=== PATIENT | female | born 1970 | race Caucasian/White ===

== ENCOUNTER 2023-06-19 13:53 | Outpatient (OUT) | payer OTHER, SELFPAY ==
--- NOTE | 2023-06-19 14:41 | P.CN_ITS ---
Consult Note: HPI Data of Consult Patient: known to practice within the last 3 years Consult date: 06/19/23 Requesting Physician: TANI VIEIRA NP Primary Care Provider: Adeel Oakley MD Consult Narrative Narrative: She is here for f/u appointment for chronic pain. She has completed PT since last visit and states it did not help. We started etodolac last visit and she has had good relief with it and would like a refill. She denies medication SE. She would like to try lidoderm patches as well. Her main concern today is left TMJ pain. She has been seeing a dentist who could not give her an injection. We discussed doing TMJ botox and she would like to try this. Pain is worse with chewing and clenching jaw. We also discussed ARNALDO as we did last visit. She wants to focus on the TMJ at this time. cc:: CC: TANI VIEIRA NP Review of Systems ROS Status of ROS 10 or more systems reviewed and unremarkable except as noted in history and below Ears, nose, mouth, and throat Reports: mouth pain Exam Constitutional Documenting provider has reviewed patient's vital signs: yes Common normals: no apparent distress, average body habitus, oriented x3, no limitations, healthy appearing, alert and well nourished General appearance: cooperative, comfortable and well developed Orientation/consciousness: Yes awake, Yes oriented to person, Yes oriented to place and Yes oriented to time HENMT Common normals: normocephalic, external ears normal and moist oral mucous membranes Face and sinus: face symmetric Other: pain and crepitus with chewing motion left TMJ area. No trauma or erythema to area. Good alignment of teeth Respiratory Common normals: normal respiratory effort, no retractions and no use of accessory muscles Effort & inspection: able to speak in complete sentences and symmetric chest mov ement Extremity Common normals: normal to inspection, full ROM and normal capillary refill Assessment and Plan Assessment and Plan (1) TMJ (temporomandibular joint disorder): Plan schedule botox injection to left TMJ refill etodolac Patient requesting ketorolac and aware to take etodolac for pain relief. No narcotics d/t concurrent use of xanax from other prescriber
== END 2023-06-19 13:54 | disposition home or self-care (01) ==
LOC: PM 13:54
PROVIDERS: PCP Family Medicine; Visit Provider Nurse Practitioner
DX: M26.602 Left temporomandibular joint disorder, unspecified (principal)
CPT/HCPCS: G0463

== ENCOUNTER 2023-06-19 15:12 | Emergency (ER) | payer OTHER, SELFPAY ==
[2023-06-19 15:18] VITALS: BP 132/82; PULSE 92; RESP 20; TEMP 36.6; O2SAT 100; BMI 28.5
--- NOTE | 2023-06-19 15:28 | ED.BACK1 ---
HPI - Back Pain/Injury General Chief Complaint: Back Pain/Injury Stated Complaint: BACK PAIN Time Seen by Provider: 06/19/23 15:22 Source: patient Mode of arrival: walk-in History of Present Illness HPI Narrative: patient is a 53-year-old female who presents to the Emergency Room for acute on chronic back pain. Patient states for several months she has been dealing with back pain for several months. She had a CTA of the chest in December of this year that showed two sclerotic lesions of the T8 and T9 vertebrae. Patient states she has had continued pain to this area, she states the pain radiates to her low back. She is currently taking gabapentin and tizanidine for pain and sees pain management. She is scheduled for an outpatient MRI but was told she needed to complete physical therapy before the MRI could be approved. She states since she has been participating in physical therapy, her symptoms have been worse. She has no new peripheral paresthesias or pain radiation to the lower extremities. She states her symptoms have been helped in the past with Toradol. Related Data Previous Rx's Medication Instructions Recorded ketorolac 10 mg tablet 10 mg PO TID PRN pain #10 tabs 06/19/23 Allergies Allergy/AdvReac Type Severity Reaction Status Date / Time morphine Allergy Severe Verified 06/19/23 15:18 spironolactone Allergy Severe Verified 06/19/23 15:21 lasix Allergy Severe Uncoded 06/19/23 15:18 Review of Systems ROS Constitutional Denies: fever or chills Ears, nose, mouth, and throat Denies: throat pain Cardiovascular Denies: chest pain Respiratory Denies: cough Gastrointestinal Denies: nausea or vomiting Genitourinary Denies: painful urination Musculoskeletal Reports: back pain; Denies: neck pain Integumentary/Breast Denies: rash Neurological Denies: headache Allergic/Immunologic Denies: hives Exam Narrative Exam Narrative: Gen.: Awake, alert, in no distress Head: Normocephalic, atraumatic ENT: Moist mucous membranes Respiratory: No respiratory distress Back: tenderness of the inferior thoracic spine and superior lumbar spine. No bony point tenderness or obvious deformity. No step-off. Extremities: Moves extremities equally, no injuries noted Psych: Normal mood and affect Neuro: No focal neuro deficit, normal dorsiflexion and plantarflexion of the lower extremities, normal hip flexion, no decrease in sensation to the medial thighs Skin: Warm, dry, intact Constitutional Vital Signs, click to edit/add: Last Vital Signs Temp 97.8 F 06/19/23 15:18 Pulse 92 H 06/19/23 15:18 Resp 20 06/19/23 15:18 BP 132/82 06/19/23 15:18 Pulse Ox 100 06/19/23 15:18 O2 Del Method Room Air 06/19/23 15:22 Course Vital Signs Vital signs: Vital Signs Temperature 97.8 F 06/19/23 15:18 Pulse Rate 92 H 06/19/23 15:18 Respiratory Rate 20 06/19/23 15:18 Blood Pressure 132/82 06/19/23 15:18 Pulse Oximetry 100 06/19/23 15:18 Oxygen Delivery Method Room Air 06/19/23 15:18 Temperature 97.8 F 06/19/23 15:18 Pulse Rate 92 H 06/19/23 15:18 Respiratory Rate 20 06/19/23 15:18 Blood Pressure 132/82 06/19/23 15:18 Pulse Oximetry 100 06/19/23 15:18 Oxygen Delivery Method Room Air 06/19/23 15:22 MDM - Back Pain/Injury MDM Narrative Medical decision making narrative: patient is currently in pain management for the symptoms, she has a pending MRI. She has no new focal neuro deficits in the emergency department today and symptoms of been ongoing for months. She was given an intramuscular injection of Toradol at her request will be started on oral Toradol for the next several days for pain control. She is otherwise on appropriate medications. Follow up with pain management and return to the Emergency Room if symptoms change or worsen Medical Records Attestation: I reviewed the patient's medical records. Discharge Plan Discharge Chief Complaint: Back Pain/Injury Clinical Impression: Back pain Patient Disposition: Home, Self-Care Time of Disposition Decision: 15:26 Condition: Good Prescriptions / Home Meds: New ketorolac 10 mg tablet 10 mg PO TID PRN (Reason: pain) Qty: 10 0RF Instructions: Back Pain (ED) Stand Alone Forms: Portal Instructions Referrals: Adeel Oakley MD [Primary Care Provider] - 1 week
[2023-06-19] MEDS: KETOROLAC TROMETHAMINE 60 MG/2 ML VIAL IM (15:38)
== END 2023-06-19 15:48 | disposition home or self-care (01) ==
PROVIDERS: Emergency Provider Emergency Medicine; PCP Family Medicine
DX: M54.9 Dorsalgia, unspecified (principal); G89.29 Other chronic pain; M26.602 Left temporomandibular joint disorder, unspecified
CPT/HCPCS: 96372; 99284; G0463

== ENCOUNTER 2023-07-09 12:28 | Outpatient (OUT) | payer OTHER, SELFPAY ==
--- NOTE | 2023-07-09 12:41 | MR_ITS ---
The [place] [id number] Patient Name: ALISTAIR MILLER MRN: [id number] date: 1970 Sex: F Assigned Patient Location: MRI Current Patient Location: MRI Accession/Order Number: [id number] Exam Date: 07/09/2023 12:50 Report Date: 07/09/2023 13:53 At the request of: TANI VIEIRA Procedure: MR thoracic spine wo con EXAMINATION: MR thoracic spine wo con HISTORY: Thoracic Pain COMPARISON: No relevant comparison available. TECHNIQUE: Axial T1 and T2; Sagittal T1, T2, and STIR sequences. Images were performed without and with Dotarem contrast. FINDINGS: CORD: Normal caliber, contour, and signal intensity. BONES: Normal alignment with no acute fracture, bone edema or spondylolisthesis. Areas of signal abnormality T6 and T12, hemangiomas are favored. DISCS: Mild to moderate multilevel disc space narrowing mild posterior disc protrusions T5 [id number] and T8-T9. Posterior left paracentral disc herniation of the protrusion type at T12-L1 best seen on sagittal image #6 extending posteriorly 5 mm deforming the left ventral spinal cord. No foraminal stenosis PARASPINAL AREA: No visible mass. OTHER: Negative. No abnormal contrast enhancement. MR/MR thoracic spine wo con IMPRESSION: Moderate sized left central paracentral disc herniation at T12-L1 extending posteriorly 5 mm deforming the left ventral spinal cord Electronically authenticated by: MACKENZIE CROOKS Date: 07/09/2023 13:53
== END 2023-07-09 12:29 | disposition home or self-care (01) ==
LOC: MRI 12:30
PROVIDERS: PCP Family Medicine; Visit Provider Nurse Practitioner
DX: M54.6 Pain in thoracic spine (principal); M51.25 Other intervertebral disc displacement, thoracolumbar region
CPT/HCPCS: 72146

== ENCOUNTER 2024-01-05 23:34 | Observation (INO) | payer OTHER, SELFPAY ==
[2024-01-05 23:37] VITALS: BP 151/93; PULSE 87; RESP 18; TEMP 36.6; O2SAT 98; BMI 23.1
--- NOTE | 2024-01-06 00:23 | ED_ITS ---
HPI - Back Pain/Injury General Chief Complaint: Back Pain/Injury Stated Complaint: BACK INJURY FALL Time Seen by Provider: 01/06/24 00:13 Source: patient Mode of arrival: walk-in History of Present Illness HPI Narrative: 53-year-old male presents for evaluation of mid to low back pain. She was at home earlier tonight and went outside to check on her son who was working on his truck and had a magnolia stand up. She fell backwards over the magnolia stand and landed flat on her back between her driveway and the road. She talked to her head and did not strike her head when she fell. She has no head injury or neck pain. She has mid to low back pain and states that her lower extremities feel numb and tingly. She was not incontinent of urine at the time of her fall. She took an ibuprofen, a muscle relaxant and a gabapentin at home without significant improvement and asked her son to bring her to the hospital. Related Data Home Medications Medication Instructions Recorded Confirmed alprazolam 1 mg tablet 1 mg PO TID PRN anxiety 01/05/24 01/05/24 amitriptyline 50 mg tablet 50 mg PO QPM 01/05/24 01/05/24 gabapentin 800 mg tablet 800 mg PO TID 01/05/24 01/05/24 ibuprofen 800 mg tablet 800 mg PO TID PRN pain 01/05/24 01/05/24 nifedipine 60 mg tablet,extended 60 mg PO DAILY 01/05/24 01/05/24 release tizanidine 4 mg tablet 4 mg PO TID PRN muscle spasticity 01/05/24 01/05/24 Allergies Allergy/AdvReac Type Severity Reaction Status Date / Time morphine Allergy Severe Verified 06/19/23 15:18 spironolactone Allergy Severe Verified 06/19/23 15:21 lasix Allergy Severe Uncoded 06/19/23 15:18 Review of Systems ROS Status of ROS 10 or more systems reviewed and unremark able except as noted in history and below Exam Narrative Exam Narrative: Nurses note and vital signs reviewed and patient is not hypoxic.Blood pressures elevated at 151/93 General: The patient appears well and in no apparent distress. She is sitting upright on the stretcher, no respiratory distress Skin: Warm, dry, no pallor noted. There is no rash noted. Head: Normocephalic, atraumatic Eye: Normal conjunctiva, no drainage, EOMI. PERRL Ears, Nose, Mouth, and Throat: oral mucosa is moist. Neck: supple, no midline bony vertebral tenderness Cardiovascular: Regular Rate and [id number], pulses are brisk and equal bilaterally Respiratory: Patient is in no distress, no accessory muscle use, lungs are clear to auscultation, no wheezing, rales or rhonchi Back: tenderness to mid thoracic spine area without midline bony vertebral tenderness or step off, no abrasion or ecchymosis noted GI: Normal bowel sounds, no tenderness to palpation, no masses appreciated. No rebound, guarding, or rigidity noted. Musculoskeletal: The patient has no evidence of calf tenderness, no pitting edema, symmetrical pulses noted bilaterally Neurological: A&O x4, normal speech, negative straight leg raising test, no saddle anesthesia, lower extremity strength is intact, subjective decreased sensation to the right mid calf, no calf swelling, negative Homans sign Psychiatric: Cooperative Constitutional Vital Signs, click to edit/add: Last Vital Signs Temp 97.8 F 01/05/24 23:37 Pulse 87 01/05/24 23:37 Resp 18 01/05/24 23:37 BP 151/93 H 01/05/24 23:37 Pulse Ox 98 01/05/24 23:37 O2 Del Method Room Air 01/05/24 23:37 Course Vital Signs Vital signs: Vital Signs Temperature 97.8 F 01/05/24 23:37 Pulse Rate 87 01/05/24 23:37 Respiratory Rate 18 01/05/24 23:37 Blood Pressure 151/93 H 01/05/24 23:37 Pulse Oximetry 98 01/05/24 23:37 Oxygen Delivery Method Room Air 01/05/24 23:37 Temperature 97.8 F 01/05/24 23:37 Pulse Rate 87 01/05/24 23:37 Respiratory Rate 18 01/05/24 23:37 Blood Pressure 151/93 H 01/05/24 23:37 Pulse Oximetry 98 01/05/24 23:37 Oxygen Delivery Method Room Air 01/05/24 23:37 MDM - Back Pain/Injury MDM Narrative Medical decision making narrative: 53-year-old female with a history of chronic back pain who has a herniated disc at T12- L1 presents for evaluation of mid back pain in this region She fell backwards onto her back at home. She took medications that she had at home including gabapentin, muscle relaxant and ibuprofen without improvement and had her son bring her to the emergency department. She denies striking her head when she fell. She has no neck pain. She was tender in the midthoracic region with no step-off or notable deformity. She did complain of numbness in her feet and had decreased sensation in the left medial lower leg and physical exam. Her straight leg raising tests were normal. Is no loss of bladder control or bowel control and she did not have any specific lower back pain. She was medicated emergency department with Percocet, Toradol and Zofran with mild clinical improvement. She has been ambulatory in the emergency department. Due to the history of a herniated disc in her back requiring an MRI last June I ordered a CT scan of the thoracic spine and lumbar spine. He skin of the lumbar spine was unremarkable but the CT scan of the thoracic spine shows a T12-L1 left paracentral disc herniation extending at least 6 mm posteriorly and contacting the left central cord was suspicion for cord compression with moderate spinal canal stenosis at this level with recommendation for emergent MRI of the spine to evaluate for any cord edema or compressive myelopathy. The results of this CAT scan was discussed with the patient and I suggested admission for an emergent MRI tomorrow. Initially the patient requested to be discharged home because she has a puppy and will follow-up as an outpatient for the MRI however after I reviewed the CT scan with her she agreed to admission. She was medicated in emergency department with an additional dose of IV Solu-Medrol. She has not had any worsening of her neurologic symptoms and has been ambulatory to the bathroom and outside. The case was discussed with the hospitalist the patient is accepted for admission, observation status Medical Records Medical records narrative: The [address] [address] [address] Scan Report Signed Patient: ALISTAIR MILLER MR#: [id number] : 1970 Acct:[id number] Age/Sex: 53 / F ADM Date: 01/05/24 Loc: ER Attending Dr: Ordering Physician: Linda Feldman Date of Service: 01/06/24 Procedure(s): CT thoracic spine wo con Accession Number(s): [id number] cc: Adeel Oakley M.D.~ The [address] [address] Patient Name: ALISTAIR MLILER MRN: [facility]:[id number] date: 1970 Sex: F Assigned Patient Location: ER Current Patient Location: ER Accession/Order Number: [id number] Exam Date: 01/06/2024 01:02 Report Date: 01/06/2024 01:58 At the request of: LINDA FELDMAN Procedure: CT thoracic spine wo con EXAM: CT thoracic spine wo con HISTORY: fall, back pain , LE numbness , acute thoracic lumbar back pain after fall injury. COMPARISON: CT chest 12/24/2022 , MRI thoracic spine 07/09/2023 TECHNIQUE: Multiple axial views CT thoracic spine without IV contrast. Coronal sagittal reformats performed. FINDINGS: No vertebral body height loss, acute fracture line, or traumatic subluxation. Multiple sclerotic foci of the thoracic vertebral bodies including the T1, T8, and T9 vertebral bodies are similar to prior exam. No aggressive cortical destruction. At T12-L1, left paracentral disc herniation extends at least 6 mm posteriorly and contacts the left ventral cord with suspicion for cord compression. There is moderate spinal canal stenosis at this level. These findings are probably progressed when compared to MRI 07/09/2023. Multiple smaller disc osteophyte complexes/herniations throughout the mid to lower thoracic levels without severe bony canal narrowing. CT/CT thoracic spine wo con IMPRESSION: At T12-L1, a large left paracentral disc herniation extends at least 6 mm posteriorly and contacts the left ventral cord with suspicion for cord compression. There is moderate spinal canal stenosis at this level. Recommend emergency MRI spine to evaluate for any cord edema/compressive myelopathy. This important critical urgent finding communicated to and acknowledged by Dr. Linda Feldman at 1:54 AM eastern time 01/06/2024 by phone. The verbal phone communication was made by Will Rodriguez. Electronically authenticated by: WILL RODRIGUEZ Date: 01/06/2024 01:58 Discharge Plan Discharge Chief Complaint: Back Pain/Injury Clinical Impression: Fall from standing, Thoracic disc herniation Patient Disposition: Admitted as Observation Time of Disposition Decision: 02:53 Condition: Good Prescriptions / Home Meds: No Action alprazolam 1 mg tablet 1 mg PO TID PRN (Reason: anxiety) amitriptyline 50 mg tablet 50 mg PO QPM gabapentin 800 mg tablet 800 mg PO TID ibuprofen 800 mg tablet 800 mg PO TID PRN (Reason: pain) nifedipine 60 mg tablet extended release 60 mg PO DAILY tizanidine 4 mg tablet 4 mg PO TID PRN (Reason: muscle spasticity) Referrals: Adeel Oakley MD [Primary Care Provider] - 1 week
--- NOTE | 2024-01-06 00:29 | CT_ITS ---
The [address] [address] Patient Name: ALISTAIR MILLER MRN: [id number] date: 1970 Sex: F Assigned Patient Location: ER Current Patient Location: ER Accession/Order Number: [id number] Exam Date: 01/06/2024 01:02 Report Date: 01/06/2024 01:58 At the request of: LINDA FELDMAN Procedure: CT thoracic spine wo con EXAM: CT thoracic spine wo con HISTORY: fall, back pain , LE numbness , acute thoracic lumbar back pain after fall injury. COMPARISON: CT chest 12/24/2022 , MRI thoracic spine 07/09/2023 TECHNIQUE: Multiple axial views CT thoracic spine without IV contrast. Coronal sagittal reformats performed. FINDINGS: No vertebral body height loss, acute fracture line, or traumatic subluxation. Multiple sclerotic foci of the thoracic vertebral bodies including the T1, T8, and T9 vertebral bodies are similar to prior exam. No aggressive cortical destruction. At T12-L1, left paracentral disc herniation extends at least 6 mm posteriorly and contacts the left ventral cord with suspicion for cord compression. There is moderate spinal canal stenosis at this level. These findings are probably progressed when compared to MRI 07/09/2023. Multiple smaller disc osteophyte complexes/herniations throughout the mid to lower thoracic levels without severe bony canal narrowing. CT/CT thoracic spine wo con IMPRESSION: At T12-L1, a large left paracentral disc herniation extends at least 6 mm posteriorly and contacts the left ventral cord with suspicion for cord compression. There is moderate spinal canal stenosis at this level. Recommend emergency MRI spine to evaluate for any cord edema/compressive myelopathy. This important critical urgent finding communicated to and acknowledged by Dr. Linda Feldman at 1:54 AM eastern time 01/06/2024 by phone. The verbal phone communication was made by Will Rodriguez. Electronically authenticated by: WILL RODRIGUEZ Date: 01/06/2024 01:58
--- NOTE | 2024-01-06 00:30 | CT_ITS ---
The [address] [address] Patient Name: ALISTAIR MILLER MRN: [id number] date: 1970 Sex: F Assigned Patient Location: ER Current Patient Location: ER Accession/Order Number: [id number] Exam Date: 01/06/2024 01:02 Report Date: 01/06/2024 01:46 At the request of: SMITH SALDANA Procedure: CT lumbar spine wo con EXAM: CT lumbar spine wo con HISTORY: fall, back pain, LE numbness COMPARISON: None. TECHNIQUE: Unenhanced CT imaging of the lumbar spine. This CT exam was performed using one or more of the following dose reduction techniques: Automated exposure control, adjustment of the mA and/or KV according to patient size, or use of iterative reconstruction technique. Unless otherwise stated, incidental findings do not require dedicated follow-up imaging. FINDINGS: The lumbar vertebrae are normal in height and alignment. There is no evidence of fracture. There is mild degenerative disc disease of the lumbar spine. There is left convex scoliotic curvature centered at L3. There is a punctate nonobstructing left lower pole renal calculus. CT/CT lumbar spine wo con IMPRESSION: 1. No acute fracture or malalignment. 2. Punctate nonobstructive left lower pole nephrolithiasis. Electronically authenticated by: WILL GRIMES Date: 01/06/2024 01:46
[2024-01-06] MEDS: KETOROLAC TROMETHAMINE 30 MG/ML VIAL IM (00:45)
[2024-01-06] MEDS: OXYCODONE HCL/ACETAMINOPHEN 5MG/325MG 1 TAB PO ×3 (00:49→12:55)
[2024-01-06] MEDS: ONDANSETRON 4 MG RAPDIS TABLET SL (00:49)
[2024-01-06 02:44] VITALS: BP 153/98; PULSE 68; RESP 18; TEMP 36.4; O2SAT 98
[2024-01-06] MEDS: METHYLPREDNISOLONE SOD SUCC PF 125 MG/2 ML VIAL IVP (02:59)
[2024-01-06 03:56] VITALS: BMI 24.4
[2024-01-06] MEDS: ALPRAZOLAM 1 MG TABLET PO ×2 (04:30→15:16)
[2024-01-06 05:20] LABS: Basophils Absolute Auto 0.1 10^3/uL (0.0-0.1); Basophils Percent Auto 0.6 % (0.2-2.0); Eosinophils Absolute Auto 0.3 10^3/uL (0.0-0.7); Eosinophils Percent Auto 4.1 % (0.9-7.0); Hematocrit 42.9 % (36.0-48.0); Hemoglobin 13.6 g/dL (12.0-16.0); Immature Granulocytes Abs Auto 0.02 10^3/uL (0.00-0.03); Immature Granulocytes Pct Auto 0.3 % (0.0-0.5); Lymphocytes Absolute Auto 2.2 10^3/uL (1.2-3.8); Lymphocytes Percent Auto 27.8 % (20.5-60.0); Mean Corpuscular HGB Conc 31.7 g/dL (29.9-35.2); Mean Corpuscular Hemoglobin 31.6 pg (26.7-34.0); Mean Corpuscular Volume 99.8 fL (81.0-99.0); Mean Platelet Volume 8.8 fL (9.5-13.5); Monocytes Absolute Auto 0.6 10^3/uL (0.3-0.8); Monocytes Percent Auto 7.2 % (1.7-12.0); Neutrophils Absolute Auto 4.6 10^3/uL (1.4-6.5); Platelet Count 299 10^3/uL (150-450); Red Cell Distribution Width 12.7 % (11.0-15.0); White Blood Count 7.7 10^3/uL (4.0-11.0)
[2024-01-06 05:55] LABS: Alanine Aminotransferase 38 U/L (14-59); Albumin Globulin Ratio 0.9; Albumin Level 3.7 g/dL (3.4-5.0); Alkaline Phosphatase 118 U/L (46-116); Anion Gap 13.2; Aspartate Amino Transferase 32 U/L (15-37); BUN Creatinine Ratio 18.2; Bilirubin Total 0.4 mg/dL (0.2-1.0); Calcium 8.3 mg/dL (8.5-10.1); Chloride 105 mmol/L (98-107); Estimated GFR (African America >60 (>=60); Estimated GFR (Non-African Ame >60 (>=60); Globulin 4.2 g/dL; Glucose 103 mg/dL (74-106); Potassium 3.2 mmol/L (3.5-5.1); Sodium 139 mmol/L (136-145); Total Protein 7.9 g/dL (6.4-8.2)
[2024-01-06] MEDS: GABAPENTIN 400 MG CAPSULE 800 MG PO ×3 (06:05→21:26)
--- NOTE | 2024-01-06 07:49 | MR_ITS ---
[place] [id number] Patient Name: ALISTAIR MILLER MRN: [id number] date: 1970 Sex: F Assigned Patient Location: MS Current Patient Location: MS Accession/Order Number: [id number] Exam Date: 01/06/2024 06:54 Report Date: 01/06/2024 08:18 At the request of: ELIZA ELISE Procedure: MR thoracic spine wo con EXAMINATION: MR thoracic spine wo con HISTORY: fall, T12-L1 paracentral herniation COMPARISON: No relevant comparison available. TECHNIQUE: Axial T1 and T2; Sagittal T1, T2, and STIR sequences. Images were performed without contrast. FINDINGS: CORD: Normal caliber, contour, and signal intensity. BONES: Normal alignment with no spondylolisthesis. No acute fracture. Anterior wedging of the T5-T7 vertebral bodies likely physiologic or remote in nature DISCS: Multilevel disc desiccation and narrowing. Mild posterior central disc bulging T2-T3 and T5-T6 T6-7 T7-T8, T8-T9 T10-T11. Left paracentral and lateral disc herniation of the fusion type at T12-L1 measuring 8 mm at the base extending posteriorly up to 6 mm, deforming the ventral spinal cord PARASPINAL AREA: No visible mass. OTHER: Negative. No abnormal contrast enhancement. MR/MR thoracic spine wo con IMPRESSION: Left paracentral/lateral disc herniation of the protrusion type at T12-L1 deforming the ventral spinal cord Electronically authenticated by: MACKENZIE CROOKS Date: 01/06/2024 08:18
[2024-01-06] MEDS: NIFEdipine 30 MG TAB.ER.24 60 MG PO (08:12)
[2024-01-06] MEDS: POTASSIUM CHLORIDE 10 MEQ ER TABLET 40 MEQ PO (09:04)
[2024-01-06] MEDS: BUSPIRONE HCL 15 MG TABLET PO (09:05)
--- NOTE | 2024-01-06 11:31 | CM.NOTE ---
Rounds made with Thea De TIMBER BUCKER also at bedside to discuss plan of care with pt. Possible transfer to higher level of care.
--- NOTE | 2024-01-06 13:24 | P.HP_ITS ---
<Statement entered by Caridad Jordan, DO - 01/06/24 15:00> This documentation has been reviewed and approved. I have also seen and spoke with patient and reviewed MRI/CT showing T12-L1 left paracentral/lateral disc herniation protrusion deforming the ventral spinal cord. I personally spoke with Neurosurgery cotton opener, Dr. Ann at [facility]. He recommended Transfer so they can properly evaluate patient, review imaging, and deem if the patient is surgical candidate at this time. Transfer to [facility] has been initiated, awaiting bed availability. H&P: HPI History of Present Illness Chief complaint: BACK INJURY FALL Narrative: 01/06/24 0925 This is a 53-year-old female patient with a past medical history as outlined below including chronic degenerative disc disease throughout her entire spine and known disc herniation at T12-L1; who presented to the ED complaining of severe back pain and new paresthesias of the bilateral lower extremities after suffering a mechanical trip and fall at home. She reports tripping over her son's car magnolia and landing flat on her back. She denies striking her head. She took her home gabapentin and Tizanidine without relief and presented to the ED for further evaluation. Workup in the ED was mostly unremarkable except for CT of the thoracic spine norma t revealed a large left paracentral disc herniation that extended at least 6 mm posteriorly and contacts the left ventral cord with suspicion for cord compression. A follow-up MRI was recommended and the patient was admitted in observation to the hospitalist service pending this imaging. At the time of my exam the patient is sitting up on the side of the bed. She continues to note significant pain to the right paraspinal area at T12-L1, and more moderate pain to the mid lumbar area on the left. She also notes persistent paresthesias of the ight low back, buttock, and entire lateral right leg down to her foot. She also notes more mild paresthesias on the left to the mid thigh area. She complains of increased weakness of the lower extremities with ambulation especially on the right, but she is able to ambulate independently. There is no evidence of saddle anesthesia or bowel or bladder dysfunction. The patient reports seeing multiple neurosurgeons in the past and they either felt her impairment was too severe for them to attempt surgery and she was referred elsewhere. The following neurosurgeon did not believe her impairment warranted surgery at that time. My attending physician, Dr. Jordan, will attempt to contact neurosurgery and discussed this patient's condition and whether the new imaging studies and paresthesia changes indicate emergent intervention is warranted. Review of Systems ROS Status of ROS 10 or more systems reviewed and unremark able except as noted in history and below [facility] Medical History (Updated 01/06/24 @ 13:34 by Thea Villar NP) TMJ (temporomandibular joint disorder) ?M26.609 - Unspecified temporomandibular joint disorder, unspecified side (ICD-10) Kidney stones ?N20.0 - Calculus of kidney (ICD-10) Balance disorder ?R26.89 - Other abnormalities of gait and mobility (ICD-10) Neck pain ?M54.2 - Cervicalgia (ICD-10) TMJ arthritis ?M26.649 - Arthritis of unspecified temporomandibular joint (ICD-10) Degenerative disc disease Depression ?F32.A - Depression, unspecified (ICD-10) Anxiety ?F41.9 - Anxiety disorder, unspecified (ICD-10) High blood pressure ?I10 - Essential (primary) hypertension (ICD-10) Spiritual problem ?Z65.8 - Other specified problems related to psychosocial circumstances (ICD- 10) Meniere disease ?H81.09 - Meniere's disease, unspecified ear (ICD-10) Surgical History (Updated 01/06/24 @ 04:32 by Umm Enciso) delivery delivered ?O82 - Encounter for delivery without indication (ICD-10) History of carpal tunnel surgery ?Z98.890 - Other specified postprocedural states (ICD-10) Family History (Updated 01/06/24 @ 03:58 by Umm Enciso) Father Family history of diabetes mellitus Family history of hypertension Family history of myocardial infarction Sister Family history of diabetes mellitus Family history of hypertension Aunt Family history of diabetes mellitus Family history of hypertension Family history of stroke Mother Family history of diabetes mellitus Family history of hypertension Social History (Updated 01/06/24 @ 03:59 by Umm Enciso) Within the past year, how often did you have a drink containing alcohol: never Score interpretation: A score less than 3 is consistent with normal alcohol consumption. 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, disability Highest level of school completed/degree received: some college, no degree Are you now , , , , never or living with a partner: In a typical week, how many times do you talk on the telephone with family, friends, or neighbors: 3 or more times per week How often do you get together with friends or relatives: 3 or more times per week How often do you attend spiritism or holiness services: never Little interest or pleasure in doing things: not at all Feeling down, depressed, or hopeless: not at all Feel stressed/tense/nervous/anxious/difficulty sleeping: not at all Life stressors: divorce/separation Do you think of yourself as: straight/heterosexual Gender Identity: female Meds Home Medications and Allergies Home Medications Medication Instructions Recorded Confirmed Type alprazolam 1 mg tablet 1 mg PO TID PRN anxiety 01/05/24 01/05/24 History amitriptyline 50 mg tablet 50 mg PO QPM 01/05/24 01/05/24 History gabapentin 800 mg tablet 800 mg PO TID 01/05/24 01/05/24 History ibuprofen 800 mg tablet 800 mg PO TID PRN pain 01/05/24 01/05/24 History nifedipine 60 mg tablet,extended 60 mg PO DAILY 01/05/24 01/05/24 History release tizanidine 4 mg tablet 4 mg PO TID PRN muscle spasticity 01/05/24 01/05/24 History buspirone 30 mg tablet 15 mg PO DAILY 01/06/24 01/06/24 History multivitamin (Daily Multi-Vitamin 1 tab PO DAILY 01/06/24 01/06/24 History tablet) Allergies Allergy/AdvReac Type Severity Reaction Status Date / Time morphine Allergy Severe Verified 06/19/23 15:18 spironolactone Allergy Severe Verified 06/19/23 15:21 lasix Allergy Severe Uncoded 06/19/23 15:18 Exam Constitutional Vital Signs, click to edit/add: Last Vital Signs Temp 97.5 F L 01/06/24 02:44 Pulse 68 01/06/24 02:44 Resp 18 01/06/24 02:44 BP 153/98 H 01/06/24 02:44 Pulse Ox 98 01/06/24 02:44 O2 Del Method Room Air 01/06/24 02:44 Common normals: no apparent distress, oriented x3, alert and well nourished General appearance: cooperative Orientation/consciousness: Yes awake HENMT Common normals: normocephalic, head/scalp atraumatic, hearing grossly normal bilaterally, external nose normal and moist oral mucous membranes Eye Common normals: PERRL, EOMs intact bilaterally, conjunctivae normal and no scleral icterus Alignment: alignment normal Eyelid: eyelids normal Neck & C-Spine Common normals: supple and no JVD Chest Common normals: inspection of chest normal Chest: symmetrical chest wall rise Respiratory Common normals: normal respiratory effort, no retractions, no use of accessory muscles and clear to auscultation bilaterally Effort & inspection: able to speak in complete sentences Auscultation: diminished lung sounds (BLL) Cardio Common normals: no JVD, regular rate, regular rhythm, S1 normal heart sound, S2 normal heart sound, no gallops, no clicks, no murmurs, no rub and peripheral pulses 2+ throughout GI Common normals: Normal to inspection, nondistended, normoactive bowel sounds present, soft to palpation, non-tender, no hepatosplenomegaly, no masses and no bruits Bladder/kidney exam: bladder normal to palpation Back & Pelvis Common normals: thoracic and lumbar spine normal to inspection Thoracic spine/upper back: pain with ROM and thoracic spinal tenderness T-spine tenderness location: T12 (Right) Lumbar spine/lower back: normal to inspection and pain with ROM Other: No bruising noted Extremity Common normals: normal capillary refill and no pedal edema General: normal exam except as noted; no clubbing and no cyanosis Neuro [place] Coma Scale: GCS not evaluated Common normals: CN's II-XII intact bilaterally, moves all extremities, no focal motor deficits and no sensory deficits noted Speech: speech normal Sensory exam: extremities right lower entire pin-prick: decreased and light- touch: decreased lateral to top of foot, left lower other pin-prick: decreased and light-touch: decreased to lateral mid thigh and other (Paresthesia R mid- back to buttocks. Radiates to flank, but not past midline) Motor exam: abnormal strength (4-/5 RLE) Psych Common normals: mental status grossly normal, thought process normal, affect normal and activity/motor behavior normal Results Labs Labs: Short CBC 01/06/24 Range/Units 04:36 WBC 7.7 (4.0-11.0) 10^3/uL Hgb 13.6 (12.0-16.0) g/dL Hct 42.9 (36.0-48.0) % Plt Count 299 (150-450) 10^3/uL BMP 01/06/24 04:36 Sodium 139 Potassium 3.2 L Chloride 105 Carbon Dioxide 24.0 BUN 14.0 Creatinine 0.77 Glucose 103 Calcium 8.3 L Liver Function 01/06/24 Range/Units 04:36 Total Bilirubin 0.4 (0.2-1.0) mg/dL AST 32 (15-37) U/L ALT 38 (14-59) U/L Alkaline Phosphatase 118 H (46-116) U/L Albumin 3.7 (3.4-5.0) g/dL Pulse Oximetry Attestation: I have reviewed the pertinent pulse oximetry results. Imaging CT scan Thoracic Spine: Attestation: I have reviewed the pertinent imaging results. Radiologist's impression: IMPRESSION: At T12-L1, a large left paracentral disc herniation extends at least 6 mm posteriorly and contacts the left ventral cord with suspicion for cord compression. There is moderate spinal canal stenosis at this level. Recommend emergency MRI spine to evaluate for any cord edema/compressive myelopathy. CT Scan - Lumbar Spine: Attestation: I have reviewed the pertinent imaging results. Radiologist's impression: IMPRESSION: 1. No acute fracture or malalignment. 2. Punctate nonobstructive left lower pole nephrolithiasis. MRI - Thoracic Spine: Attestation: I have reviewed the pertinent imaging results. Radiologist's impression: FINDINGS: CORD: Normal caliber, contour, and signal intensity. BONES: Normal alignment with no spondylolisthesis. No acute fracture. Anterior wedging of the T5-T7 vertebral bodies likely physiologic or remote in nature DISCS: Multilevel disc desiccation and narrowing. Mild posterior central disc bulging T2-T3 and T5-T6 T6-7 T7-T8, T8-T9 T10-T11. Left paracentral and lateral disc herniation of the fusion type at T12-L1 measuring 8 mm at the base extending posteriorly up to 6 mm, deforming the ventral spinal cord PARASPINAL AREA: No visible mass. OTHER: Negative. No abnormal contrast enhancement. Assessment and Plan Assessment and Plan (1) Thoracic disc herniation: Assessment and Plan: ACUTE ON CHRONIC * Adm observation * Chronic multilevel disc degeneration w/ known disc herniation at T12-L1 for more than 6 months * Previous MRI Thoracic Spine from Jun 2023 noted T12-L1 5mm posterior herniation * Repeat MRI this morning reveals possible extension of the herniation w/ 8mm base and 6mm posterior extension causing spinal cord deformation * New findings since the fall include R side paresthesias from T12 to the foot * Pt reports waxing and waning paresthesias at baseline, but only one other time that reached the level of the foot. * No active paresthesias noted prior to fall * No evidence of saddle anesthesia or bowel/bladder dysfunction * Pt is able to ambulate, but notes that her legs are weak and want to give out (R>L) * See back pain * PT/OT consults for eval and treat * Dr Jordan, attending physician, will contact neurosurgeon to discuss if this is now emergent and requires intervention, or if outpatient follow up is advised considering the chronicity of herniation. (2) Back pain: Assessment and Plan: ACUTE ON CHRONIC * 2/2 acute fall * Percocet and Toradol for pain * Continue home Tizanidine for muscle spasm * Continue home gabapentin (3) Fall from standing: Assessment and Plan: ACUTE * Mechanical trip and fall * Pt reports frequent trips and falls - clinically suspect mild foot drop or inadequate leg raise during ambulation d/t chronic spinal cord compression (4) High blood pressure: Assessment and Plan: CHRONIC * Continue home nifedipine (5) Depression: Assessment and Plan: CHRONIC * Continue home amitriptyline (6) Anxiety: Assessment and Plan: CHRONIC * Continue home buspar and xanax
[2024-01-06] MEDS: KETOROLAC TROMETHAMINE 30 MG/ML VIAL IVP ×2 (14:45→21:26)
[2024-01-06 14:51] VITALS: BP 119/74; PULSE 99; RESP 18; TEMP 36.7; O2SAT 97
[2024-01-06 15:23] VITALS: BMI 24.4
--- NOTE | 2024-01-06 16:24 | DIETREC ---
Recommend 237 mL Ensure Original BID d/t poor food intakes r/t TMJ jaw pain.
[2024-01-06 20:00] VITALS: BP 138/80; PULSE 102; RESP 16; RESP 18; TEMP 36.8; O2SAT 98
[2024-01-06] MEDS: AMITRIPTYLINE HCL 50 MG TABLET PO (21:26)
[2024-01-06] MEDS: TIZANIDINE HCL 4 MG TABLET PO (22:52)
[2024-01-06 23:41] VITALS: BP 114/75; PULSE 76; RESP 16; TEMP 36.6; O2SAT 97
[2024-01-07 08:11] VITALS: BP 120/78
[2024-01-07] MEDS: NIFEdipine 30 MG TAB.ER.24 60 MG PO (08:11)
[2024-01-07] MEDS: BUSPIRONE HCL 15 MG TABLET PO (08:11)
[2024-01-07] MEDS: GABAPENTIN 400 MG CAPSULE 800 MG PO ×2 (08:12→13:55)
[2024-01-07 08:13] VITALS: BP 120/78; PULSE 87; RESP 18; TEMP 36.7; O2SAT 96
[2024-01-07] MEDS: KETOROLAC TROMETHAMINE 30 MG/ML VIAL IVP (09:16)
[2024-01-07] MEDS: TIZANIDINE HCL 4 MG TABLET PO (09:16)
[2024-01-07] MEDS: ALPRAZOLAM 1 MG TABLET PO (10:54)
[2024-01-07 12:00] VITALS: BP 122/78; PULSE 84; RESP 16; TEMP 36.8; O2SAT 98
--- NOTE | 2024-01-07 13:06 | CM.NOTE ---
Rounds made with Dr. Jordan. Ms. Toth explains to Dr. Jordan that she wants to be discharged and has an appointment with her Neurosurgeon @ [facility] tomorrow in the am. Dr. Jordan explains that she does not feel safe with discharge as there are changes in MRI and she will need to speak with the Neurosurgeon to determine if he feels it is safe to be discharged or if Ms. Toth requires transfer as previously planned. Dr. Jordan will attempt to call Ms. Cade's Neurosurgeon and will get back with Ms. Toth regarding their discussion.
--- NOTE | 2024-01-07 15:25 | P.DS_ITS ---
<Statement entered by Caridad Jordan, DO - 01/07/24 15:58> Patient was also seen by me at the time of discharge. I spoke directly with Dr. Tim Muñoz from neurosurgery who has seen and evaluated patient in the past. Since patient was not having bowel or bladder incontinence, and was able to walk, Doctor was comfortable with discharging patient to see her tomorrow in clinic. DS: Providers Provider Date of admission: 01/06/24 17:14 Primary care physician: Adeel Oakley MD Consults: 01/06/24 Consult to Dietitian Routine Reason For Exam: unable able to eat Reason for consultation: unable to eat due to jaw hurting 01/06/24 10:03 Physical Therapy Eval and Treat Routine Reason for consultation: T12 disc herniation Has provider been notified: No 01/06/24 10:04 Occupational Therapy Eval and Treat Routine Reason for consultation: T12 disc herniation Has provider been notified: No Discharging clinician: Thea Villar DS: Diagnosis Discharge Diagnosis (1) Thoracic disc herniation: (2) Back pain: (3) Fall from standing: (4) High blood pressure: (5) Depression: (6) Anxiety: DS: Summary Hospital Course Hospital Course: The patient was admitted with back pain and paresthesias, primarily to the right lower extremity, after suffering a mechanical fall at home. She has a known disc herniation at T12-L1 level and repeat MRI imaging indicated this is slightly worse, with increased ventral spinal cord deformation noted. As the patient's symptoms were worse than baseline, and her disc herniation appeared to have extended since previous imaging in June, neurosurgery at [facility] was contacted for possible emergent transfer. The patient was accepted in transfer, although no bed was immediately available. The patient originally agreed to transfer to [facility] for neurosurgical specialty care, but after waiting overnight for a bed and with overall improvement of paresthesias, she decided that she did not want to transfer as an inpatient to [facility]. We were not comfortable with discharging the patient due to her worsened imaging findings and neurosurgery recommendations, and the patient was considering leaving AMA. She contacted a neurosurgeon that she has seen in the past, Dr. Muñoz from , and he agreed to see the pt emergently as an outpatient tomorrow. Dr Jordan spoke with Dr Muñoz and he confirmed that he was comfortable with us discharging the pt and he will follow up with her tomorrow at 8 AM. She is being discharged in fair condition with her neurologic findings at or near her baseline currently. We have prescribed a prednisone burst x 5 days to help with pain and inflammation. Time Spent with Patient Time attestation: Total time spent providing and/or coordinating discharge services: Time spent: greater than 30 minutes Specific discharge activities: Physical exam, discussion of discharge plan, questions answered. Exam Constitutional Vital Signs, click to edit/add: Last Vital Signs Temp 98.3 F 01/07/24 12:00 Pulse 84 01/07/24 12:00 Resp 16 01/07/24 12:00 BP 122/78 01/07/24 12:00 Pulse Ox 98 01/07/24 12:00 O2 Del Method Room Air 01/07/24 12:00 Common normals: no apparent distress, oriented x3 and alert General appearance: cooperative Orientation/consciousness: Yes awake HENMT Common normals: normocephalic and head/scalp atraumatic Eye Common normals: PERRL, EOMs intact bilaterally, conjunctivae normal and no scleral icterus Respiratory Common normals: normal respiratory effort, no use of accessory muscles and clear to auscultation bilaterally Effort & inspection: able to speak in complete sentences and symmetric chest movement Cardio Common normals: no JVD, regular rate, regular rhythm, S1 normal heart sound, S2 normal heart sound, no murmurs and peripheral pulses 2+ throughout GI Common normals: Normal to inspection, nondistended, normoactive bowel sounds present, soft to palpation and non-tender Bladder/kidney exam: bladder normal to palpation Back & Pelvis Thoracic spine/upper back: thoracic spinal tenderness T-spine tenderness location: T12 (R, mild, improved) Extremity Common normals: normal to inspection, full ROM, normal capillary refill and no pedal edema General: no clubbing and no cyanosis Neuro Common normals: moves all extremities and no focal motor deficits Speech: speech normal Sensory exam: other (Mild paresthesias to R buttock and posterior mid-thigh) Psych Common normals: mental status grossly normal and activity/motor behavior normal Discharge Plan Discharge Disposition: Home, Self-Care Condition: Good Discharge Medications: New prednisone 20 mg tablet 20 mg PO DAILY 5 Days Qty: 5 0RF Continued alprazolam 1 mg tablet 1 mg PO TID PRN (Reason: anxiety) amitriptyline 50 mg tablet 50 mg PO QPM gabapentin 800 mg tablet 800 mg PO TID ibuprofen 800 mg tablet 800 mg PO TID PRN (Reason: pain) nifedipine 60 mg tablet extended release 60 mg PO DAILY tizanidine 4 mg tablet 4 mg PO TID PRN (Reason: muscle spasticity) buspirone 30 mg tablet 15 mg PO DAILY multivitamin [Daily Multi-Vitamin] Tablet 1 tab PO DAILY Activity: resume usual activities as tolerated Patient Instructions: Prednisone (By mouth), Thoracic Disc Herniation (DC) Forms: Portal Instructions Follow Up Appointments: Dr Muñoz, 8AM on 01/08/24
--- OUTSIDE RECORDS SUMMARY | 2024-01-09 09:55 | XMS_ITS | CCD ---
Author Name Unknown Address [address] [place] [address] Organization [facility] Care Team Providers Care Project Systems Engineer Name Role Phone Adeel Cjea Primary Care Provider [phone] Melvin Quiroga Unavailable Amanda Estrella PA-C Unavailable MD Adeel Ceja Primary Care Provider MD Tommy Segundo Attending Provider ADEEL CEJA Primary Care Physician [phone] MD Tommy Segundo. Referring Unavailable Meliton Garcia Attending Unavailable Meliton Garcia Admitting Unavailable Tommy Segundo Unavailable Adeel Ceja Primary Care Provider [phone] Melvin Quiroga Unavailable Amanda Estrella PA-C Unavailable JOANIE ESCOTO Referring Unavailable ADEEL CEJA Primary Care Unavailable COOPER VALLE Attending Unavailable AMANDA ESTRELLA Referring Unavaillexy e ADEEL CEJA Primary Care Unavailable COOPER VALLE Attending Unavailable ADEEL CEJA Primary Care Unavailable UMM MERCEDES Attending Unavailable UMM MERCEDES Referring Unavailable ADEEL CEJA Primary Care Unavailable AMANDA ECHEVERRIA Attending Unavailable COOPER VALLE Referring Unavailable ADEEL CEJA Primary Care Unavailable AMANDA ECHEVERRIA Referring Unavailable ADEEL CEJA Primary Care Unavailable COOPER VALLE Attending Unavailable UMM MERCEDES Referring Unavailable ADEEL CEJA Primary Care Unavailable MATKO, COOPER Suárez Admitting Unavailable MATKO, COOPER Suárez Attending Unavailable MATKO, COOPER Suárez Referring Unavailable NADERER, ADEEL A Primary Care Unavailable MATKO, COOPER J Admitting Unavailable MATKO, COOPER Suárez Attending Unavailable MATKO, COOPER J Referring Unavailable NADERER, ADEEL A Primary Care Unavailable BLAZE, CIARA Attending Unavailable NADERER, ADEEL Sarabia Referring Unavailable NADERER, ADEEL Sarabia Primary Care Unavailable BLAZE, CIARA Referring Unavailable NADERER, ADEEL Sarabia Primary Care Unavailable JOANIE ESCOTO Attending Unavailable AMANDA ESTRELLA Referring Unavailabl e NADERER, ADEEL Sarabia Primary Care Unavailable NADERER, DR ADEEL Sarabia Primary Care Unavailable UDAY, DERRICK Consulting Unavailable UDAY, DERRICK Attending Unavailable UDAY, DERRICK Admitting Unavailable JIM BARON Consulting Unavailable PAY ., DR PARRA Admitting Unavailable NADERER, DR ADEEL Sarabia Primary Care Unavailable PAY ., DR PARRA Attending Unavailable SUSANNAH ., CAITLIN Consulting Unavailable UDAY, DERRICK Consulting Unavailable UDAY, DERRICK Attending Unavailable NADERER, DR ADEEL Sarabia Primary Care Unavailable UDAY, DERRICK Admitting Unavailable NANCYIPPMACKENZIE GONZÁLES Consulting Unavailable SUSANNAH ., CAITLIN Consulting Unavailable UDAY, DERRICK Admitting Unavailable UDAY, DERRICK Attending Unavailable NADERER, DR ADEEL Sarabia Primary Care Unavailable UDAY, DERRICK Consulting Unavailable NADERER, DR ADEEL Sarabia Primary Care Unavailable KILLIAN ., DR JOSE Lanza Attending Unavailable KILLIAN ., DR JOSE Lanza Admitting Unavailable KILLIAN ., DR JOSE Lanza Consulting Unavailable HALKER ., PEARL Attending Unavailable HALKER ., PEARL Admitting Unavailable HALKER ., PEARL Consulting Unavailable NADERESusy, DR ADEEL Sarabia Primary Care Unavailable NADERER, DR ADEEL Sarabia Primary Care Unavailable MACKENZIE RITCHIE V Consulting Unavailable NADERER, DR ADEEL Sarabia Attending Unavailable NADERER, DR ADEEL Sarabia Admitting Unavailable NADERER, DR ADEEL Sarabia Consulting Unavailable NADERER, DR ADEEL Sarabia Primary Care Unavailable MACKENZIE RITCHIE V Consulting Unavailable NADERESusy, DR ADEEL Sarabia Attending Unavailable NADERER, DR ADEEL Sarabia Admitting Unavailable NADERER, DR ADEEL Sarabia Consulting Unavailable NADERER, DR ADEEL Sarabia Primary Care Unavailable BLAZE, CIARA Attending Unavailable BLAZE, CIARA Admitting Unavailable BLAZECIARA Giang Consulting Unavailable NADERER, DR ADEEL Sarabia Primary Care Unavailable MELINDA ., SHIVA Admitting Unavailable MELINDA ., SHIVA Attending Unavailable EMMANUEL DYKES Consulting Unavailable DR ADEEL ECJA Primary Care Unavailable DIAB ., SYLWIA Attending Unavailable DIAB ., SYLWIA Admitting Unavailable DIAB ., SYLWIA Consulting Unavailable MD Adeel Ceja Primary Care Provider MD Ann Valenzuela Attending Provider [phone] NON STAFF Attending Provider Unavailable Unknown, Referring Provider Unavailable Unav ailable UNKNOWN, PCP Primary Care Unavailable Dr. Tim Muñoz Attending Unava ilable Adeel Ceja Primary Care Unavailable Pearl Noyola Admitting Unavailable Pearl Noyola Attending Unavailable Mart Valenzuela Admitting Unavailab Mart Matthew Attending Unavailab Adeel Mendiola Primary Care Unavailable Adeel Ceja MD Primary Care Provider Allergies Allergy Classification Reported Allergen(s) Allergy Type Date of Onset Reaction(s) Facility (17 sources) Acetaminophen / Caffeine / Pyrilamine; Translations: [[id number] RILAMINE] Drug Allergy 014 Hives, Other: See Comments [facility] (17 sources) fentaNYL; Translations: [FENTANYL] Drug Allergy Other: See Comments [facility] (17 sources) hydroCHLOROthiazide; Translations: [HYDROCHLOROTHIAZIDE] Drug All[facility] 022 [facility] (18 sources) Midazolam; Translations: [midazolam] Drug Allergy 017 Other: See Comments, Headache (finding) [facility] (20 sources) Morphine; Translations: [morphine] Drug Allergy 014 Rash, Itching (finding) [facility] (1 source) Diuretics Propensity to adverse reactions Unknown simfy Other (1 source) Diuretic Drug allergy Unknown simfy Other (4 sources) Flbmo-Ilpmavtp-Py Grass-Hydran; Translations: [AHVDD-[id number]-DI GRASS-HYDRAN] Drug Allergy 023 Unknown [facility] (1 source) hydroCHLOROthiazide Drug Allergy [facility] (1 source) Midazolam Drug Allergy [facility] (1 source) Morphine Drug Allergy 014 [facility] (1 source) Midol Max [facility] Menstrual Drug allergy (disorder) 014 [facility] (1 source) Unable to Assess Drug allergy (disorder) 022 [facility] Medications Current Medications Medication Drug Class(es) Dates Sig (Normalized) Sig (Original) ALPRAZolam 1 mg oral tablet (20 sources) Benzodiazepine Start: 10-20-2023 End: 12-17-2023 take 1 tablet by mouth three times daily as needed for anxiety ALPRAZolam (Xanax) 1 MG tablet Indications: Generalized anxiety disorder (CMS/HCC) TAKE 1 TABLET BY MOUTH THREE TIMES DAILY NEEDED FOR ANXIETY 90 tablet 1 12/17/2023 Active Start: 06-13-2022 take 1 tablet by alexia th every eight hours as needed ALPRAZolam (XANAX) 1 mg tablet Take 1 mg by mouth three times daily as needed. 0 06/13/2022 Active Xanax TABS Quant ity: 0 Refills: 0 Ordered: 07-Aug-2023 DO Active take 1 tablet by alexia th three to four times daily as needed Xanax 1 MG 1 tablet Orally 3-4 times a day as needed Active Comment on above: Take 1 mg by mouth t hree times daily as needed. amitriptyline hydrochloride 50 mg oral tablet (6 sources) Tricyclic Antidepressant Start: 12-16-19 24 take 1 tablet by mouth at bedtime amitriptyline (Elavil) 50 MG tablet Indications: Generalized anxiety disorder (CMS/HCC) TAKE 1 TABLET BY MOUTH AT BEDTIME 30 tablet 5 12/16/2023 Active Start: 01-15-2023 take 1 tablet by alexia th once daily at bedtime amitriptyline (ELAVIL) 50 mg tablet Take 50 mg by mouth daily at bedtime. 0 01/15/2023 Active Amitriptyline HC l - 50 MG Oral Tablet Quantity: 0 Refills: 0 Ordered: 07-Aug-2023 DO Active Comment on above: Take 50 mg by mouth daily at bedtime. Ascorbic Acid (1 source) Vitamin C Start: 12-10-2022 Vitamin C Refills(s) 0 Start Date: 12/10/22 Status: Ordered busPIRone hydrochloride 15 mg oral tablet (18 sources) Start: 12-10-2022 busPIRone 15 mg Tab Refills(s) 0 Start Date: 12/10/22 Status: Ordered Start: 06-19-2022 busPIRone HCl 30 mg tablet BuSpar 15 MG TAB S Quantity: 0 Refills: 0 Ordered: 07-Aug-2023 DO Active take 1 tablet by alexia th every twenty-four hours busPIRone HCl 10 MG 1 tablet Orally once daily Active celecoxib 200 mg oral capsule (1 source) Nonsteroidal Anti-inflammatory Drug take 1 capsule by mouth every twenty-four hours CeleBREX 200 MG 1 capsule with food Orally Once a day Active ergocalciferol 1.25 mg oral capsule (1 source) Provitamin D2 Compound take 1 capsule by mouth once Vitamin D (Ergocalciferol) 97603 UNIT 1 capsule Orally for 30 day(s) Active gabapentin 800 mg oral tablet (20 sources) Anti-epileptic Agent Start: 2022 take 1 tablet by mouth three times daily gabapentin (Neurontin) 800 MG tablet Indications: Cervical spondylosis TAKE 1 TABLET BY MOUTH THREE TIMES DAILY 90 tablet 2 10/13/2023 Active Start: 06-19-2022 gabapentin (NE URONTIN) 800 mg tablet Gabapentin 800 M G Oral Tablet Quantity: 0 Refills: 0 Ordered: 07-Aug-2023 DO Active ibuprofen 800 mg oral tablet (3 sources) Nonsteroidal Anti-inflammatory Drug Start: 11-11-2023 take 1 tablet by mouth three times daily as needed ibuprofen 800 MG tablet Indications: Other spondylosis with radiculopathy, cervical region TAKE 1 TABLET BY MOUTH THREE TIMES DAILY NEEDED 90 tablet 4 11/11/2023 Active Start: 12-10-2022 ibuprofen Refi lls(s) 0 Start Date: 12/10/22 Status: Ordered Icy Hot Advanced Pain Relief (1 source) Start: 12-10-2022 Icy Hot Advanced Pain Relief Refill(s) 0 Start Date: 12/10/22 Status: Ordered lidocaine 0.05 mg/mg medicated patch (2 sources) Antiarrhythmic, Amide Local Anesthetic Start: 12-09-2023 apply 1 dose transdermal route once daily lidocaine (Lidoderm) 5 % patch Indications: Cervical spondylosis APPLY ONE PATCH DAILY 30 patch 2 12/09/2023 Active mirtazapine 30 mg oral tablet (9 sources) Start: 12-10-2022 Remeron 30 mg Tab Refills(s) 0 Start Date: 12/10/22 Status: Ordered Start: 11-14-2022 take 1 tablet by alexia th every twenty-four hours Mirtazapine 15 MG 1 tablet at bedtime Orally Once a day for 30 day(s) Nov, Active take 7.5 mg by mouth once daily at bedtime mirtazapine (REMERON) 15 mg tablet Take 7.5 mg by mouth daily at bedtime. 0 Active Comment on above: Take 7.5 mg by mouth daily at bedtime. Multivitamin preparation (1 source) Start: 12-10-2022 multivitamin Refill(s) 0 Start Date: 12/10/22 Status: Ordered NIFEdipine (17 sources) Dihydropyridine Calcium Channel Erik Start: 12-10-2022 NIFEdipine 60 mg ER Tab Refills(s) 0 Start Date: 12/10/22 Status: Ordered Start: 06-19-2022 NIFEdipine XL (ADALAT CC) 60 mg 24 hr tablet take 1 tablet by alexia th every twenty-four hours NIFEdipine ER 60 MG 1 tablet on an empty stomach Orally Once a day for 30 day(s) Active Robaxin-750 (2 sources) Start: 12-10-2022 Robaxin-750 Re fills(s) 0 Start Date: 12/10/22 Status: Ordered Start: 11-14-2022 Robaxin-750 Nov, Active Vitamin D3 (1 source) Start: 12-10-2022 Vitamin D3 Ref ills(s) 0 Start Date: 12/10/22 Status: Ordered Zinc (1 source) Start: 12-10-2022 Zinc Refills(s ) 0 Start Date: 12/10/22 Status: Ordered Completed/Discontinued Medications Medication Drug Class(es) Dates Sig (Normalized) Sig (Original) cholecalciferol 1.25 mg oral capsule (15 sources) Vitamin D Start: 06-17-2019 cholecalciferol, Vitamin D3, (VITAMIN D3) 1,250 mcg (50,000 unit) cap capsule One capsule q.month 0 06/17/2019 Active Comment on above: One capsule q.month cloNIDine hydrochloride 0.1 mg oral tablet (3 sources) Central alpha-2 Adrenergic Agonist Start: 10-17-2022 cloNIDine HCl (CATAPRES) 0.1 mg tablet Take 0.1 mg by mouth. 0 10/17/2022 Active Comment on above: Take 0.1 mg by mouth . cyclobenzaprine hydrochloride 10 mg oral tablet (1 source) Muscle Relaxant Flexeril 10mg 1 Oral 3 times daily for 10 days Not-Taking magnesium oxide 400 mg oral capsule (1 source) Magnesium Oxide 400 MG CAPS Quantity: 0 Refills: 0 Ordered: 07-Aug-2023 DO Active meclizine hydrochloride 25 mg oral tablet (15 sources) Antiemetic take 1 tablet by mouth every eight hours as needed meclizine (ANTIVERT) 25 mg tab Take 25 mg by mouth three times daily as needed. 0 Active Comment on above: Take 25 mg by mouth three times daily as needed. methocarbamol 750 mg oral tablet (11 sources) Muscle Relaxant methocarbamol (ROBAXIN ORAL) Take 750 mg by mouth. 0 Active Comment on above: Take 750 mg by mouth . NIFEdipine 60 MG TBCR (1 source) NIFEdipine 60 MG TBCR Quantity: 0 Refills: 0 Ordered: 07-Aug-2023 DO Active omega-3/dha/epa/dpa/f bipin oil (OMEGA-3 2100 ORAL) (11 sources) omega-3/dha/epa/ dp a/fish oil (OMEGA-3 2100 ORAL) Take by mouth. 0 Active Comment on above: Take by mouth. promethazine hydrochloride 25 mg oral tablet (15 sources) Phenothiazine promethazine (PHENERGAN) 25 mg tablet Take 25 mg by mouth. 0 Active Comment on above: Take 25 mg by mouth. QUEtiapine 100 mg oral tablet (8 sources) Atypical Antipsychotic Start: 06-20-2022 End: 09-16-2022 QUEtiapine (SEROQUEL) 100 mg tablet tiZANidine 4 mg oral tablet (16 sources) Central alpha-2 Adrenergic Agonist Start: 06-19-2022 tiZANidine (ZANAFLEX) 4 mg tablet tiZANidine HCl - 4 MG Oral Capsule Quantity: 0 Refills: 0 Ordered: 07-Aug-2023 DO Active Problems Active Problems Problem Classification Problem Date Documented Date Episodic/Chronic Anxiety disorders (3 sources) Generalized anxiety disorder; Translations: [Generalized anxiety disorder] Onset: 03-25-2023 12-17-2023 Chronic Conditions associated with dizziness or vertigo (16 sources) Meniere's disease; Translations: [Meniere's disease, unspecified ear] Onset: 01-06-2019 06-21-2022 Chronic Essential hypertension (17 sources) Essential hypertension; Translations: [Essential (primary) hypertension] Onset: 11-23-2021 06-21-2022 Chronic Immunizations and screening for infectious disease (1 source) Encounter for screening for respiratory tuberculosis; Translations: [Screening-pulmonary TB] Onset: 01-30-2023 Episodic Nutritional deficiencies (4 sources) Vitamin D deficiency; Translations: [Vitamin D deficiency, unspecified] Onset: 01-30-2023 01-30-2023 Chronic Nutritional deficiencies (1 source) Deficiency of other specified B group vitamins; Translations: [Vitamin B12 deficiency] Onset: 01-30-2023 Episodic Osteoarthritis (6 sources) Disorder of joint of shoulder region; Translations: [Primary osteoarthritis, unspecified shoulder] Onset: 09-16-2022 Chronic Other aftercare (1 source) Other roasterman (current) drug therapy; Translations: [OTH HALF-WAY CURRENT DRUG THERAPY] Onset: 03-25-2023 Episodic Other bone disease and musculoskeletal deformities (3 sources) Lesion of thoracic spine; Translations: [Disorder of bone, unspecified] Onset: 01-30-2023 01-30-2023 Episodic Other circulatory disease (3 sources) Raynaud's phenomenon; Translations: [Raynaud's syndrome without gangrene] Onset: 01-30-2023 01-30-2023 Chronic Other circulatory disease (1 source) H/O: hypertension; Translations: [Personal history of other diseases of circulatory system] Episodic Other connective tissue disease (1 source) Impingement syndrome of left shoulder region; Translations: [Impingement syndrome of left shoulder] Episodic Other connective tissue disease (3 sources) Bilateral medial epicondylitis of elbows; Translations: [Medial epicondylitis, right elbow] Onset: 01-30-2023 01-30-2023 Episodic Other connective tissue disease (1 source) H/O: back problem; Translations: [Personal history of other musculoskeletal disorders] Episodic Other connective tissue disease (1 source) H/O: osteoarthritis; Translations: [Personal history of other musculoskeletal disorders] Episodic Other ear and sense organ disorders (16 sources) Hearing loss; Translations: [Unspecified hearing loss, unspecified ear] Onset: 01-06-2019 06-21-2022 Chronic Other hematologic conditions (5 sources) Elevated erythrocyte sedimentation rate; Translations: [Elevated sed rate] Onset: 01-30-2023 Episodic Other nervous system disorders (13 sources) Carpal tunnel syndrome of right wrist; Translations: [Carpal tunnel syndrome, right upper limb] Onset: 07-22-2022 Chronic Other nervous system disorders (11 sources) Carpal tunnel syndrome of left wrist; Translations: [Carpal tunnel syndrome, left upper limb] Onset: 09-06-2022 Chronic Other nervous system disorders (2 sources) Chronic pain; Translations: [Other chronic pain] Chronic Other nervous system disorders (2 sources) Carpal tunnel syndrome; Translations: [Carpal tunnel syndrome, unspecified upper limb] Chronic Other nervous system disorders (2 sources) Other chronic pain; Translations: [OTHER CHRONIC PAIN] Onset: 12-26-2022 Chronic Other nervous system disorders (1 source) Numbness of hand; Translations: [Anesthesia of skin] Episodic Other non-traumatic joint disorders (3 sources) Rotator cuff arthropathy of left shoulder; Translations: [Other specific arthropathies, not elsewhere classified, left shoulder] Onset: 01-30-2023 01-30-2023 Chronic Other non-traumatic joint disorders (2 sources) Shoulder pain; Translations: [Pain in left shoulder] Episodic Other non-traumatic joint disorders (3 sources) Hip pain; Translations: [Pain in right hip] Onset: 01-30-2023 01-30-2023 Episodic Other non-traumatic joint disorders (7 sources) Pain in left shoulder; Translations: [Pain in joint, shoulder region] Onset: 09-16-2022 Episodic Other nutritional; endocrine; and metabolic disorders (1 source) Hyperuricemia without signs of inflammatory arthritis and tophaceous disease; Translations: [Hyperuricemia] Onset: 01-30-2023 Episodic Other screening for suspected conditions (not mental disorders or infectious disease) (1 source) Abnormal findings on diagnostic imaging of other specified body structures; Translations: [ABNORML FIND DX IMG OTH BODY STRUC] Onset: 11-14-2022 Chronic Residual codes; unclassified (1 source) Postoperative state; Translations: [Other specified postprocedural states] Episodic Residual codes; unclassified (3 sources) Family history of psoriasis with arthropathy; Translations: [Family history of diseases of the skin and subcutaneous tissue] Onset: 01-30-2023 01-30-2023 Episodic Residual codes; unclassified (3 sources) FH: Rheumatoid arthritis; Translations: [Family history of arthritis] Onset: 01-30-2023 01-30-2023 Episodic Residual codes; unclassified (3 sources) FH: Gout; Translations: [Family history of other diseases of the musculoskeletal system and connective tissue] Onset: 01-30-2023 01-30-2023 Episodic Residual codes; unclassified (1 source) Other specified personal risk factors, not elsewhere classified; Translations: [Risk of exposure to Lyme disease] Onset: 01-30-2023 Episodic Residual codes; unclassified (1 source) Pain; Translations: [Pain, unspecified] 06-21-2022 Episodic Screening and history of mental health and substance abuse codes (2 sources) Personal history of nicotine dependence; Translations: [H/O: anxiety state] Onset: 12-09-2022 Episodic Spondylosis; intervertebral disc disorders; other back problems (17 sources) Cervical disc disorder; Translations: [Cervical disc disorder, unspecified, unspecified cervical region] Onset: 10-19-2022 Chronic Spondylosis; intervertebral disc disorders; other back problems (20 sources) Backache; Translations: [Dorsalgia, unspecified] Onset: 10-15-2022 01-30-2023 Episodic Substance-related disorders (1 source) Nicotine dependence, cigarettes, uncomplicated; Translations: [NICOTINE DEPEND CIGARETTES UNCOMP] Onset: 03-25-2023 Chronic Unclassified (1 source) hand Onset: 07-16-2022 Unclassified (3 sources) LOW BACK PAIN, UNSPECIFIED; Translations: [LOW BACK PAIN, UNSPECIFIED] Onset: 12-26-2022 Past or Other Problems Problem Classification Problem Date Documented Date Episodic/Chronic Conditions associated with dizziness or vertigo (16 sources) Dizziness; Translations: [Dizziness and giddiness] Onset: 07-22-2018 06-21-2022 Episodic E Codes: Natural/environment (2 sources) Other and unspecified overexertion or strenuous movements or postures, initial encounter; Translations: [Overexertion from prolonged static or awkward postures, initial encounter] Onset: 10-12-2022 Episodic E Codes: Struck by; against (1 source) Striking against or struck by other objects, initial encounter; Translations: [STRIKING AGNST/STRUCK OTH OBJ INIT] Onset: 08-01-2022 Episodic Other connective tissue disease (16 sources) Fibromyalgia; Translations: [Fibromyalgia] Onset: 04-30-2019 06-21-2022 Episodic Other connective tissue disease (4 sources) Unspecified rotator cuff tear or rupture of left shoulder, not specified as traumatic; Translations: [UNS ROT CUFF TEAR/RUPT LT SHOULDER] Onset: 09-12-2022 Episodic Other ear and sense organ disorders (16 sources) Tinnitus; Translations: [Tinnitus, unspecified ear] Onset: 07-22-2018 06-21-2022 Episodic Other nervous system disorders (1 source) Other acute postprocedural pain; Translations: [Post-op pain] Onset: 09-06-2022 Episodic Other screening for suspected conditions (not mental disorders or infectious disease) (2 sources) Other specified abnormal findings of blood chemistry; Translations: [Encounter for screening mammogram for malignant neoplasm of breast] Onset: 11-14-2022 Episodic Other skin disorders (16 sources) Eruption; Translations: [Rash and other nonspecific skin eruption] Onset: 04-16-2021 06-21-2022 Episodic Residual codes; unclassified (2 sources) Other specified postprocedural states; Translations: [Post-operative state] Onset: 07-22-2022 Episodic Residual codes; unclassified (1 source) Pain, unspecified; Translations: [Pain] Onset: 06-21-2022 Episodic Residual codes; unclassified (1 source) Family history of malignant neoplasm of other organs or systems; Translations: [FAM HX MALIG NEOPLASM OTH ORGN/SYS] Onset: 11-14-2022 Episodic Sprains and strains (7 sources) Anterior to posterior tear of superior glenoid labrum of left shoulder; Translations: [Superior glenoid labrum lesion of left shoulder, initial encounter] Onset: 08-01-2022 01-30-2023 Episodic Superficial injury; contusion (4 sources) Contusion of right hand, initial encounter; Translations: [CONTUSION RIGHT HAND INITIAL ENC] Onset: 07-30-2022 Episodic Unclassified (1 source) LOW BACK PAIN, UNSPECIFIED; Translations: [LOW BACK PAIN, UNSPECIFIED] Onset: 12-24-2022 Results Test Name Value Interpretation Reference Range Facility PHQ-2 [facility] 08-07-2023 Adult depression screening assessment No MG-Neurosur taya y-[facility] Work Phone: HLA B 27on 02-19-2023 HLA-B27 Negative Normal [facility] Comment on above: Result Comment: HLA- B*27 Negative B27 allele interpretation for all loci based on IMGT/HLA database version 3.44 This test was developed and its performance characteristics determined by [facility]. It has not been cleared or approved by the Food and Drug Administration. [facility] CLIA ID Number [id number] . This test was performed using PCR (Polymerase Chain Reaction)/SSOP (Sequence Specific Oligonucleotide Probes) technique. SBT (Sequence Based Typing) and/or SSP (Sequence Specific Primers) may be used as supplemental methods when necessary. Please contact HLA Customer Service at if you have any questions. . Director of HLA Laboratory Dr Misbah Saunders, PhD Performed By: #### H LA27 ####[facility] [id number] [place], [place] [address]Bi. Raymond Zi Wahl [facility]20[facility] RUPINDER MILLER ([id number]) 1970 F Date Time Provider Department 02/12/23 CIARA THAKUR During your visit today, we recorded the following information about you: Lorri Dawn LPN 02/12/2023 11:47 AM Signed Rebekah kahnxes denial of of MRI. Plan requires documentation that patient completed 6 week of back exercises-PT, chiropractic treatments or medically-directed home exercise program. and number of visits completed. Fax placed on you desk for review. Ciara Thakur MD 02/12/2023 3:38 PM Signed Notify patient of MRI denial May start PT per insurance request Order signed. May send if needed outside [facility]. Thank you. Jono Bowie MA 02/13/2023 8:34 AM Signed Spoke to pt aware of recommendations. Allergies As of Date: 02/12/2023 Noted Allergy Reaction [id number] ILAMINE 11/29/2013 4 - Hives 14 - Other: See Comments [id number] GRASS-HYDRAN 01/30/2023 16 - Unknown FENTANYL 07/16/2017 14 - Other: See Comments Comments: Headache and nausea HYDROCHLOROTHIAZIDE 06/21/2022 4 - Hives MIDAZOLAM 07/16/2017 14 - Other: See Comments Comments: Headache and nausea MORPHINE 12/13/2013 2 - Rash Date Reviewed: 01/30/2023 Reviewed by: Ciara Thakur MD - Fully Assessed Reason for Visit: Insurance Authorization [[id number]] Cmt: thoracic MRI Primary Visit Diagnosis:Chronic bilateral thoracic back pain [M54.6, G89.29] Other Visit Diagnosis:Chronic bilateral low back pain with bilateral sciatica [M54.42, M54.41, G89.29] Order(s):CONSULT TO PHYSICAL THERAPY [9032] Order #: [id number]: 1 FUTURE Prescriptions as of 02/13/2023 - amitriptyline (ELAVIL) 50 mg tablet Take 50 mg by mouth daily at bedtime. - cloNIDine HCl (CATAPRES) 0.1 mg tablet Take 0.1 mg by mouth. - methocarbamol (ROBAXIN ORAL) Take 750 mg by mouth. - omega-3/dha/epa/dpa/fi sh oil (OMEGA-3 2100 ORAL) Take by mouth. - ALPRAZolam (XANAX) 1 mg tablet Take 1 mg by mouth three times daily as needed. - busPIRone HCl 30 mg tablet - cholecalciferol, Vitamin D3, (VITAMIN D3) 1,250 mcg (50,000 unit) cap capsule One capsule q.month - gabapentin (NEURONTIN) 800 mg tablet - NIFEdipine XL (ADALAT CC) 60 mg 24 hr tablet - promethazine (PHENERGAN) 25 mg tablet Take 25 mg by mouth. - tiZANidine (ZANAFLEX) 4 mg tablet - meclizine (ANTIVERT) 25 mg tab Take 25 mg by mouth three times daily as needed. Problem List As Of Date 02/12/2023 Noted Resolved Dizziness [R42] 07/22/2018 Essential (primary) hypertension [I10] 11/23/2021 Fibromyalgia [M79.7] 04/30/2019 Hearing loss [H91.90] 01/06/2019 Meniere's disease [H81.09] 01/06/2019 Rash and nonspecific skin eruption [R21] 04/16/2021 Tinnitus [H93.19] 07/22/2018 Carpal tunnel syndrome of right wrist [G56.01] 07/22/2022 Carpal tunnel syndrome of left wrist [G56.02] 09/06/2022 Chronic bilateral low back pain with bilateral *01/30/2023 Chronic bilateral thoracic back pain [M54.6, G8*01/30/2023 Lesion of bone of thoracic spine [M89.9] 01/30/2023 Medial epicondylitis of both elbows [M77.01, M7*01/30/2023 Chronic hip pain, bilateral [M25.551, M25.552, *01/30/2023 Cervicalgia [M54.2] 01/30/2023 Superior labrum zamapdgu-nm-pbmywvqua (SLAP) te*01/30/2023 Rotator cuff arthropathy, left [M12.812] 01/30/2023 Secondary osteoarthritis of multiple sites [M15*01/30/2023 Vitamin D deficiency [E55.9] 01/30/2023 Family history of psoriatic arthritis [Z84.0] 01/30/2023 Family history of rheumatoid arthritis [Z82.61] 01/30/2023 Family history of gout [Z82.69] 01/30/2023 Raynaud's phenomenon without gangrene [I73.00] 01/30/2023 Encounter Status:Closed by JONO BOWIE on 02/13/23 [facility] 02-04-2023 CNPN Telephone (NICK) MILLERRUPINDER SERRANO ([id number]) 1970 F Date Time Provider Department 02/04/23 CIARA THAKUR During your visit today, we recorded the following information about you: Usha Cornejo 02/04/2023 1:57 PM Signed Patient calling requesting her MRI Thoracic Spine WO [place] order to be faxed to [facility]. Patient would like to have this done at their facility. [facility]: Please advise. Rimma Lopez RN 02/04/2023 2:51 PM Signed Orders faxed as requested. Pt notified Allergies As of Date: 02/04/2023 Noted Allergy Reaction [id number] ILAMINE 11/29/2013 4 - Hives 14 - Other: See Comments [id number] GRASS-HYDRAN 01/30/2023 16 - Unknown FENTANYL 07/16/2017 14 - Other: See Comments Comments: Headache and nausea HYDROCHLOROTHIAZIDE 06/21/2022 4 - Hives MIDAZOLAM 07/16/2017 14 - Other: See Comments Comments: Headache and nausea MORPHINE 12/13/2013 2 - Rash Date Reviewed: 01/30/2023 Reviewed by: Ciara Thakur MD - Fully Assessed Reason for Visit: Orders [681] Prescriptions as of 02/04/2023 - amitriptyline (ELAVIL) 50 mg tablet Take 50 mg by mouth daily at bedtime. - cloNIDine HCl (CATAPRES) 0.1 mg tablet Take 0.1 mg by mouth. - methocarbamol (ROBAXIN ORAL) Take 750 mg by mouth. - omega-3/dha/epa/dpa/fi sh oil (OMEGA-3 2100 ORAL) Take by mouth. - ALPRAZolam (XANAX) 1 mg tablet Take 1 mg by mouth three times daily as needed. - busPIRone HCl 30 mg tablet - cholecalciferol, Vitamin D3, (VITAMIN D3) 1,250 mcg (50,000 unit) cap capsule One capsule q.month - gabapentin (NEURONTIN) 800 mg tablet - NIFEdipine XL (ADALAT CC) 60 mg 24 hr tablet - promethazine (PHENERGAN) 25 mg tablet Take 25 mg by mouth. - tiZANidine (ZANAFLEX) 4 mg tablet - meclizine (ANTIVERT) 25 mg tab Take 25 mg by mouth three times daily as needed. Problem List As Of Date 02/04/2023 Noted Resolved Dizziness [R42] 07/22/2018 Essential (primary) hypertension [I10] 11/23/2021 Fibromyalgia [M79.7] 04/30/2019 Hearing loss [H91.90] 01/06/2019 Meniere's disease [H81.09] 01/06/2019 Rash and nonspecific skin eruption [R21] 04/16/2021 Tinnitus [H93.19] 07/22/2018 Carpal tunnel syndrome of right wrist [G56.01] 07/22/2022 Carpal tunnel syndrome of left wrist [G56.02] 09/06/2022 Chronic bilateral low back pain with bilateral *01/30/2023 Chronic bilateral thoracic back pain [M54.6, G8*01/30/2023 Lesion of bone of thoracic spine [M89.9] 01/30/2023 Medial epicondylitis of both elbows [M77.01, M7*01/30/2023 Chronic hip pain, bilateral [M25.551, M25.552, *01/30/2023 Cervicalgia [M54.2] 01/30/2023 Superior labrum qfjjqufn-af-kkexbvgah (SLAP) te*01/30/2023 Rotator cuff arthropathy, left [M12.812] 01/30/2023 Secondary osteoarthritis of multiple sites [M15*01/30/2023 Vitamin D deficiency [E55.9] 01/30/2023 Family history of psoriatic arthritis [Z84.0] 01/30/2023 Family history of rheumatoid arthritis [Z82.61] 01/30/2023 Family history of gout [Z82.69] 01/30/2023 Raynaud's phenomenon without gangrene [I73.00] 01/30/2023 Encounter Status:Closed by RIMMA LOPEZ on 02/04/23 Normal [facility] CNPNon 02-03-2023 CNPN Telephone (MAYITOGIO) RUPINDER MILLER ([id number]) 1970 F Date Time Provider Department 02/03/23 CIARA THAKUR During your visit today, we recorded the following information about you: Ciara Thakur MD 02/03/2023 8:07 PM Addendum Please Call patient if MyChart note not read to review results/released to My Chart if tests completed at [facility]: normal labs and no inflammation. Continue same daily vitamin D with food. Negative testing for autoimmune/rheumatolog ical diseases such as rheumatoid arthritis/lupus/etc. Negative lyme test. Happy to further review and discuss at follow up visit. Continue rest of treatment plan per instructions at last office visit. Thank you. 02/03/23 normal esr 8,crp 0.4, vitamin D 42.4, vitamin b12-971, uric acid 5.2;negative rf<10, ccp<15, larry ifa, hla b27, quantiferon tb, lyme IGG/IGM, hepatitis panel except equivocal +hepB surface AB Hep B Surface Ab, Qual Positive Equivocal Abnormal Comment: Indeterminate result. In patients who were vaccinated 6-8 weeks prior to this draw or previously infected with HBV, a repeat testing is suggested. Those who were vaccinated for Hepatitis B virus years ago, may fall into this category due to waning immunity over time. Clinical correlation is required. Hep B Surface Ab Quant >=12.00 mIU/mL 11.91 Low Jono Bowie MA 02/04/2023 9:12 AM Signed Spoke to pt aware of results and recommendations. Allergies As of Date: 02/03/2023 Noted Allergy Reaction OFLYHWOZWWYUW-[id number]-WQZ ILAMINE 11/29/2013 4 - Hives 14 - Other: See Comments OKSAM-XYWPYEPL-NQ GRASS-HYDRAN 01/30/2023 16 - Unknown FENTANYL 07/16/2017 14 - Other: See Comments Comments: Headache and nausea HYDROCHLOROTHIAZIDE 06/21/2022 4 - Hives MIDAZOLAM 07/16/2017 14 - Other: See Comments Comments: Headache and nausea MORPHINE 12/13/2013 2 - Rash Date Reviewed: 01/30/2023 Reviewed by: Ciara Thakur MD - Fully Assessed Reason for Visit: Results [95] Prescriptions as of 02/04/2023 - amitriptyline (ELAVIL) 50 mg tablet Take 50 mg by mouth daily at bedtime. - cloNIDine HCl (CATAPRES) 0.1 mg tablet Take 0.1 mg by mouth. - methocarbamol (ROBAXIN ORAL) Take 750 mg by mouth. - omega-3/dha/epa/dpa/fi sh oil (OMEGA-3 2100 ORAL) Take by mouth. - ALPRAZolam (XANAX) 1 mg tablet Take 1 mg by mouth three times daily as needed. - busPIRone HCl 30 mg tablet - cholecalciferol, Vitamin D3, (VITAMIN D3) 1,250 mcg (50,000 unit) cap capsule One capsule q.month - gabapentin (NEURONTIN) 800 mg tablet - NIFEdipine XL (ADALAT CC) 60 mg 24 hr tablet - promethazine (PHENERGAN) 25 mg tablet Take 25 mg by mouth. - tiZANidine (ZANAFLEX) 4 mg tablet - meclizine (ANTIVERT) 25 mg tab Take 25 mg by mouth three times daily as needed. Problem List As Of Date 02/03/2023 Noted Resolved Dizziness [R42] 07/22/2018 Essential (primary) hypertension [I10] 11/23/2021 Fibromyalgia [M79.7] 04/30/2019 Hearing loss [H91.90] 01/06/2019 Meniere's disease [H81.09] 01/06/2019 Rash and nonspecific skin eruption [R21] 04/16/2021 Tinnitus [H93.19] 07/22/2018 Carpal tunnel syndrome of right wrist [G56.01] 07/22/2022 Carpal tunnel syndrome of left wrist [G56.02] 09/06/2022 Chronic bilateral low back pain with bilateral *01/30/2023 Chronic bilateral thoracic back pain [M54.6, G8*01/30/2023 Lesion of bone of thoracic spine [M89.9] 01/30/2023 Medial epicondylitis of both elbows [M77.01, M7*01/30/2023 Chronic hip pain, bilateral [M25.551, M25.552, *01/30/2023 Cervicalgia [M54.2] 01/30/2023 Superior labrum uhiylwtz-xd-uzoktowgt (SLAP) te*01/30/2023 Rotator cuff arthropathy, left [M12.812] 01/30/2023 Secondary osteoarthritis of multiple sites [M15*01/30/2023 Vitamin D deficiency [E55.9] 01/30/2023 Family history of psoriatic arthritis [Z84.0] 01/30/2023 Family history of rheumatoid arthritis [Z82.61] 01/30/2023 Family history of gout [Z82.69] 01/30/2023 Raynaud's phenomenon without gangrene [I73.00] 01/30/2023 Encounter Status:Closed by JONO BOWIE on 02/04/23 Normal [facility] 25(OH[facility] 25-hydroxyvitamin D3 [Mass/Vol] 42.4 ng/mL Normal 31.0-80.0 [facility] Comment on above: Order Comment: Kenneth edmond Type: BLOOD SPECIMEN Ordering Facility: [facility] Address: [address] [place] [address] Result Comment: Clas sification of 25 [place] Vitamin D status: Deficiency/Insufficiency: < or = 30 ng/ml. Sufficiency/Optimal Levels: 31-80 ng/mL Toxicity: > 100 ng/mL. Test performed by chemiluminescent immunoassay. Performed By: #### 1 989-3, 48077-4 #### [facility] CLIA [id number] [facility] [place] [address] [place] LARRY BY IFA WITH REFLEXon Nuclear Ab IF (S) [Titer] Negative Normal Negative [facility] Comment on above: Order Comment: Kenneth edmond Type: BLOOD SPECIMEN Ordering Facility: [facility] Address: [address] [address] Result Comment: Anti -nuclear antibody test is used as an aid in diagnosis of systemic autoimmune diseases. Where positive and clinically warranted, follow-up using disease-specific testing is recommended. Low positive titers are not uncommon with advanced age, certain chronic infections, and malignancies among others. Test methodology: Indirect fluorescence immunoassay (IFA) using HEp-2 cells. Performed By: #### 1 989-3, 04316-0 #### [facility] CLIA [id number] [address] [place] [address] B. burgdorferi IgG and IgM p zac (S)on 01-30-2023 B. burgdorferi IgG+IgM Qn (S) Negative Normal Negative [facility] Comment on above: Order Comment: Kenneth edmond Type: BLOOD SPECIMEN Ordering Facility: [facility] Address: [address] [place] [address] Result Comment: Rece nt infection with B. burgdorferi sensu lato cannot be excluded if the specimen collected within four weeks after the onset of signs and symptoms or within six weeks after a known tick exposure. Clinical and epidemiological correlation is required. Performed By: #### 1 989-3, 68275-0 #### [facility] CLIA [id number] [address] [place] [address] BLOOD TB SCREENon 01-30-2023 M. tuberculosis tuberculin stim IFN-g Ql (Bld) Negative Normal [facility] Comment on above: Order Comment: Kenneth edmond Type: BLOOD SPECIMEN Ordering Facility: [facility] Address: [address] [place] [address] Performed By: #### 1 989-3, 16125-7 #### [facility] CLIA [id number] [address] [place] [address] [place] MITOGEN MINUS NIL >9.98 Normal >=0.50 [facility] Comment on above: Order Comment: Kenneth edmond Type: BLOOD SPECIMEN Ordering Facility: [facility] Address: [address] [place] [address] Performed By: #### 1 989-3, 86213-9 #### [facility] CLIA [id number] [address] [place] [address] [facility] OF [place] TB GAMMA INTERPRETATION Infection with M. tuberculosis complex is unlikely. If latent tuberculosis infection is highly suspected, a negative result does not rule out the infection. Specimens from immunocompromised patients and those <5 years of age may show false negative results. In case of a contact investigation, please repeat 8-12 weeks after a known exposure. Normal [facility] Comment on above: Order Comment: Speci men Type: BLOOD SPECIMEN Ordering Facility: [facility] Address: [address] Performed By: #### 1 989-3, 65606-9 #### [facility] CLIA [id number] [address] [place] [address] OF [place] TB NIL 0.02 IU/mL Normal <=8.00 [facility] Comment on above: Order Comment: Speci men Type: BLOOD SPECIMEN Ordering Facility: [facility] Address: [address] [address] Performed By: #### 1 989-3, 52601-4 #### [facility] CLIA [id number] [address] [place] [address] OF [place] TB1 AG MINUS NIL 0.05 IU/mL Normal <0.35 [facility] Comment on above: Order Comment: Speci men Type: BLOOD SPECIMEN Ordering Facility: [facility] Address: [address] [place] [address] Performed By: #### 1 989-3, 01080-0 #### [facility] CLIA [id number] [address] [place] [address] [facility] OF [place] TB2 AG MINUS NIL 0.02 IU/mL Normal <0.35 [facility] Comment on above: Order Comment: Speci men Type: BLOOD SPECIMEN Ordering Facility: [facility] Address: [address] [place], [place] [address] Performed By: #### 1 989-3, 65833-2 #### [facility] CLIA [id number] [address] [place], [place] [id number] [facility] CNOVon 01-30-2023 CNOV Office Visit (NICK ) RUPINDER MILLER ([id number]) 1970 F Date Time Provider Department 01/30/23 2:00 PM CIARA THAKUR During your visit today, we recorded the following information about you: Pulse Blood pressure Weight Height 84/minute 105/63 74.4 kg 1.651 m Ciara Thakur MD 01/30/2023 4:32 PM Signed NEW CONSULT:RHEUMATOLOGY SERVICE SERVICE DATE: 01/30/2023 SERVICE TIME: 2:16 PM REASON FOR CONSULT: joint pain REQUESTING PHYSICIAN: Adeel Ceja MD ([facility]) [address] [facility] [address] PRIMARY CARE PHYSICIAN: Adeel Ceja MD Patient's Name: Rupinder Miller 1970 [address] [phone] Accompanied by: self This consult was requested for my medical opinion regarding the rheumatologic evaluation of the patient's joint pain problems, and my final recommendations will be communicated to the requesting health care provider by way of the shared medical record for internal providers or letter via the [facility] [employer] for external providers. January 30, 2023 SUBJECTIVE Ms. Miller is a 52 year old female who presents for joint pain eval. Exposed to ticks when in [place], moved to [place] 2007 20years ago pain started neck, entire spine 2007 L>R shoulders, legs, hips, knees, medial elbows 2018 disc bulges in entire spine, sclerotic lesions, [place] Sees neurology, normal brain MRI, no MS Had EMG 2021 found b/l carpal tunnel syndrome 07/2022 and 08/2022 Less forearm pain, but pain when placing palms downward skin changes on palms/small of back/behind ears x 10years Dizzy has meniere's disease Toes go numb fingertips turn white/blue when cold Tried shoulder steroid injection 08/2022 developed SLAP 2 tear per MRI per primary care provider Not interested in surgery due ot hih stress caring for children, ill family member Worked in [employer], nurse's aide, 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 No adverse effects with meds. No other complaints. Patient denies fever, chills, cp, dyspnea, nausea, vomiting, night sweats, scalp tenderness, visual changes, gentile, bowel/bladder changes, weight changes or other complaints. COMPLETE REVIEW OF SYSTEMS: RHEUM. ROS: Joint pain: yes neck/entire spine, L>R shoulders, legs, hips, knees, medial elbows Joint swelling: no Am stiffness: yes Low back pain: yes Dactylitis: no H/o precedent/frequent infection(s): strept few weeks ago from daughter Enthesopathy/Lloyd's /heel/plantar tenderness: b/l cts Skin thickening, psoriasis, photosensitivity, purpura: skin changes on palms/small of back/behind ears x 10years Nail changes: brittle Alpecia, patchy: yes 2years Eye inflammation: no SICCA: dry eyes/mouth Oral/nasal/genital ulcers: no GI problems-diarrhea/blee ding/IBD/Gluten intolerence/Dysphagia: gerd Raynaud's phenomenon/digital ulcers: fingertips turn white/blue when cold Organ inv-Serositis: no Lung disease/ILD: no Myopathy/proximal muscle weakness: no Abnormal Urine or urethritis: no Renal/liver disease: no SOFTWARE PROGRAMMER/PNS/sz/cva/cancer disease: no HEME-Cytopenias/LAD/Cl ots: no Fevers: no Fatigue: yes, sleeps 4-6hrs hrs/night PMR/GCA ROS: negative Patient denies history of Gout or Pseudogout, Psoriasis, Rheumatic Fever, PUD, Liver Disease, Hepatitis , Kidney Disease, Kidney Stones, DM, CAD, Dyslipidemia, PAD, Sinusitis, Asthma, TB infection or exposure, Pneumonias, Anemia, Seizures, Stroke, MS, Clots, Cancer, Thyroid Disease, Transfusions, Tattoos , and Alcohol dependency. Other ROS:The remainder of the review of systems is negative. All other reviewed and negative other than HPI. PATIENT REPORTS: Cardiac stress test:no Breast exam:negative Pap exam: normal, last menses 12/2022 irregular, not taking hormones; G5, P3, 2miscarriage Colonoscopy: not yet Bone Density:not yet History of Fractures:no Height Loss: no IMMUNIZATION HX: Immunization History Administered Date(s) Administered COVID-19 original vaccine, age 12+ yr, monovalent (CanDiag - PURPLE TOP) 07/02/2021 08/04/2021 Pneumovax no Flu shot no Tetanus yes Last PPD: negative years ago PAST MEDICAL HISTORY: PMH meniere's disease, vertigo, PTSD, bipolar disorder, gerd, anxiety/depression, borderline hypercholesterolemia, htn, s/p kidney lithotripsy 2020, s/p csection x 3, gallstones/still has gallbladder, s/p b/l carpal tunnel syndrome 07/2022 and 08/2022 PAST SURGICAL HISTORY: s/p kidney lithotripsy 2020, s/p csection x 3 FAMILY HISTORY: mother- psoriatic arthritis;brother , gout; father- osteoarthritis, gout, psoriasis, afib;uncle- osteoarthritis, multiple surgeries;GF- psoriasis, rheumatoid arthritis; SO (more content not included)... Normal [facility] CRP [Mass/Vol] 0.4 mg/dL Normal <0.9 [facility] Comment on above: Order Comment: Speci men Type: BLOOD SPECIMEN Ordering Facility: [facility] Address: [address] [place], [place] [address] Performed By: #### 1 989-3, 26820-7 #### [facility] CLIA [id number] [address] [facility] [address] [place] [address] [place] Cyclic citrullinated peptide IgG Qnon 01-30-2023 CCP ANTIBODY IGG QUALITATIVE Negative Normal Negative [facility] Comment on above: Order Comment: Kenneth edmond Type: BLOOD SPECIMEN Ordering Facility: [facility] Address: [address] [place] [address] Performed By: #### 1 989-3, 88066-5 #### [facility] CLIA [id number] [address] [place] [address] [place] ESR Westergren method (Bld) [Velocity]on 01-30-2023 ESR (Bld) [Velocity] 8 mm/h Normal 0-20 [facility] Comment on above: Order Comment: Kenneth edmond Type: BLOOD SPECIMEN Ordering Facility: [facility] Address: [address] [place] [address] Performed By: #### 1 989-3, 60335-5 #### [facility] CLIA [id number] [address] [place] [address] OF [place] HBV core Ab Ser Qlon 023 HBV core Ab Ql (S) Negative Normal Negative [facility] Comment on above: Order Comment: Kenneth edmond Type: BLOOD SPECIMEN Ordering Facility: [facility] Address: [address] [place] [address] Result Comment: No e vidence of current or past infection with Hepatitis B virus. Should recent infection be suspected, repeat testing may be considered 3-4 weeks after this draw. Performed By: #### 1 989-3, 07984-1 #### [facility] CLIA [id number] [address] [place] [address] OF [place] HBV surface Ab Ql (S)on 01-09 HBV surface Ab Qn (S) 11.91 mIU/mL Low >=12.00 [facility] Comment on above: Order Comment: Kenneth edmond Type: BLOOD SPECIMEN Ordering Facility: [facility] Address: [address] [place] [address] Performed By: #### 1 989-3, 06438-5 #### [facility] CLIA [id number] [address] OF [facility] HBV surface Ab Ser Qlon 01-09 HBV surface Ab Ql (S) Equivocal Abnormal Positive [facility] Comment on above: Order Comment: Speci men Type: BLOOD SPECIMEN Ordering Facility: [facility] Address: [address] [place] [address] Result Comment: Inde terminate result. In patients who were vaccinated 6-8 weeks prior to this draw or previously infected with HBV, a repeat testing is suggested. Those who were vaccinated for Hepatitis B virus years ago, may fall into this category due to waning immunity over time. Clinical correlation is required. Performed By: #### 1 989-3, 58826-0 #### [facility] CLIA [id number] [address] [place] [address] OF [place] HBV surface Ag Ser Qlon 01-09 HBV surface Ag Ql (S) Negative Normal Negative [facility] Comment on above: Order Comment: Speci men Type: BLOOD SPECIMEN Ordering Facility: [facility] Address: [address] [place] [address] Performed By: #### 1 989-3, 32224-7 #### [facility] CLIA [id number] [address] [place] [address] OF [facility] HCV Ab Ser Qlon 01-30-2023 HCV Ab Ql (S) Negative Normal Negative [facility] Comment on above: Order Comment: Speci men Type: BLOOD SPECIMEN Ordering Facility: [facility] Address: [address] [place] [address] Result Comment: The result suggests no evidence of active infection with Hepatitis C virus. Should recent infection be suspected, repeat testing may be considered 4-6 weeks after this draw. Performed By: #### 1 989-3, 20472-0 #### [facility] CLIA [id number] [address] [place] [address] [place] HLA-B27 PCRon 01-30-2023 HLA-B27 DNA RESULT Negative Normal [facility] Comment on above: Order Comment: Kenneth edmond Type: BLOOD SPECIMEN Ordering Facility: [facility] Address: [place] [address] Result Comment: HLA- B27 is strongly associated with ankylosing spondylitis (). HLA-B27 is also associated with other seronegative arthropathies such as Jennifer syndrome and psoriatic arthritis as well as extra-articular diseases such as anterior uveitis and inflammatory bowel disease. Greater than 90% of patients with are HLA-B27 positive. The frequency of HLA-B27 varies by ethnic group but generally <10 % in most [place] populations. HLA-B27 associated susceptibility to varies by population and HLA-B27 alleles detected. Some alleles such as B27:05 are associated with high susceptibility while others such B27:06 and B27:09 are associated with low susceptibility. HLA-B27 allele typing is recommended in HLA-B27 positive cases. HLA typing performed by PCR-RSSOP and/or NGS. This test was developed and its performance characteristics determined by [email or web address]. The test has not been cleared or approved by the [place] FDA. However, FDA approval was not necessary since this lab is certified under CLIA for high complexity testing. Test performed by: [facility], [address] [place] [address], CLIA [id number] Performed By: #### B 27PCR #### [facility] CLIA [id number] [address] [place] [address] [place] Rheumatoid fact SerPl-aCncon 01-30-2023 Rheumatoid factor Qn [IU]/mL Normal <16 [facility] Comment on above: Order Comment: Kenneth men Type: BLOOD SPECIMEN Ordering Facility: [facility] Address: [place] [address] Performed By: #### 1 989-3, 40895-9 #### [facility] CLIA [id number] [address] [place] [address] [place] Urate SerPl-mCncon Urate [Mass/Vol] 5.2 mg/dL Normal 2.5-6.6 [facility] Comment on above: Order Comment: Speci men Type: BLOOD SPECIMEN Ordering Facility: [facility] Address: [address] [place] [address] Performed By: #### 1 989-3, 73446-2 #### [facility] CLIA [id number] [address] [place] [address] [place] Vit B12 SerPl-mCncon 023 Cobalamin (Vitamin B12) [Mass/Vol] 971 pg/mL Normal 232-1245 [facility] Comment on above: Order Comment: Speci men Type: BLOOD SPECIMEN Ordering Facility: [facility] Address: [address] [place] [address] Performed By: #### 1 989-3, 94679-6 #### [facility] CLIA [id number] [address] [place] [address] [place] cCP IgG SerPl-aCncon 023 Cyclic citrullinated peptide IgG Qn <15 Normal <20 [facility] Comment on above: Order Comment: Speci men Type: BLOOD SPECIMEN Ordering Facility: [facility] Address: [address] [place] [address] Performed By: #### 1 989-3, 44901-2 #### [facility] CLIA [id number] [address] [place] [address] [place] CARDIAC RIGO 3-6on 3 CK [Catalytic activity/Vol] 103 U/L Normal 26-192 [facility] Comment on above: Performed By: #### C MREP #### [facility] [address] [place] [address] Dr. Raymond Pinon CK.MB [Mass/Vol] 0.72 ng/mL Normal <=3.60 [facility] Comment on above: Performed By: #### C MREP #### [facility] [address] [address] [address] Raymond Pinon HSTROP <4.0 Normal 4.0-51.3 [facility] Comment on above: Result Comment: CUT- OFF POINTS HAVE BEEN ESTABLISHED BASED ON THE FOURTH UNIVERSAL DEFINITIONS OF MYOCARDIAL INFARCTION. THE UPPER REFERENCE LIMIT (URL) OF TROPONIN, DEFINED THE 99TH PERCENTILE OF cTnI DISTRIBUTION IN A REFERENCE POPULATION, HAS BEEN CONFIRMED THE DECISION THRESHOLD FOR IA DIAGNOSIS. Performed By: #### C MREP #### [facility] [address] [address] [address] Raymond Pinon CARDIAC RIGO ADMITon 023 CK [Catalytic activity/Vol] 126 U/L Normal 26-192 [facility] Comment on above: Performed By: #### C RP, BMP, CMADM #### [facility] [address] [address] [address] Raymond Pinon CK.MB [Mass/Vol] 0.07 ng/mL Normal <=3.60 [facility] Comment on above: Performed By: #### C RP, BMP, CMADM #### [facility] [address] [place] [address] Dr. Raymond Pinon HSTROP <4.0 Normal 4.0-51.3 [facility] Comment on above: Result Comment: CUT- OFF POINTS HAVE BEEN ESTABLISHED BASED ON THE FOURTH UNIVERSAL DEFINITIONS OF MYOCARDIAL INFARCTION. THE UPPER REFERENCE LIMIT (URL) OF TROPONIN, DEFINED THE 99TH PERCENTILE OF cTnI DISTRIBUTION IN A REFERENCE POPULATION, HAS BEEN CONFIRMED THE DECISION THRESHOLD FOR IA DIAGNOSIS. Performed By: #### C RP, BMP, CMADM #### [facility] [address] [place] [address] Dr. Raymond Pinon BEATRICE 36 ng/mL Normal 9-82 [facility] Comment on above: Performed By: #### C RP, BMP, CMADM #### [facility] [address] [place] [address] Dr. Raymond Pinon CBC AUTO DIFFon 12-24-2022 BASO # 0.1 103/ul Normal 0.0-0.1 [facility] Comment on above: Performed By: #### C BC ####[facility] [address] [address]Dr. Raymond Pinon Basophils/100 WBC (Bld) 0.7 % Normal 0.2-2.0 [facility] Comment on above: Performed By: #### C BC ####[facility] [address] [address]Dr. Raymond Pinon EO # 0.6 103/ul Normal 0.0-0.7 [facility] Comment on above: Performed By: #### C BC ####[facility] [address] [place], [place] [address]Dr. Raymond Pinon Eosinophils/100 WBC (Bld) 7.5 % Critically high 0.9-7.0 [facility] Comment on above: Performed By: #### C BC ####[facility] [address] [place], [place] [address]Dr. Raymond Pinon Erythrocyte distribution width (RBC) [Ratio] 11.9 % Normal 11.0-15.0 [facility] Comment on above: Performed By: #### C BC ####[facility] [address] [place], [place] [address]Dr. Raymond Pinon Hematocrit (Bld) [Volume fraction] 39.6 % Normal 36.0-48.0 [facility] Comment on above: Performed By: #### C BC ####[facility] [address] [place], [place] [address]Dr. Raymond Pinon Hemoglobin (Bld) [Mass/Vol] 13.1 g/dL Normal 12.0-16.0 [facility] Comment on above: Performed By: #### C BC ####[facility] [address] [place], [place] [address]Dr. Raymond Pinon IG # 0.02 10e3/ul Normal 0.00-0.03 [facility] Comment on above: Performed By: #### C BC ####[facility] [address] [place], [place] [address]Dr. Raymond Pinon IG % 0.3 % Normal 0.0-0.5 [facility] Comment on above: Performed By: #### C BC ####[facility] [address] [place] [address]I[address] Raymond Zi LYMPH # 2.7 103/ul Normal 1.2-3.8 [facility] Comment on above: Performed By: #### C BC ####[facility] [address] [id number]. Raymond Zi Lymphocytes/100 WBC (Bld) 36.2 % Normal 20.5-60.0 [facility] Comment on above: Performed By: #### C BC ####[facility] [address] [address]Dr. Swapnabárbara Pinon MANUAL DIFF REQ NO Normal [facility] Comment on above: Performed By: #### C BC ####[facility] [address] [address]Dr. Raymond Zi MCH (RBC) [Entitic mass] 31.1 pg Normal 26.7-34.0 [facility] Comment on above: Performed By: #### C BC ####[facility] [address] [place], [place] [address]Dr. Raymond Zi MCHC (RBC) [Mass/Vol] 33.1 g/dL Normal 29.9-35.2 [facility] Comment on above: Performed By: #### C BC ####[facility] [address] [place], [place] [address]Dr. Swapnabárbara Pinon MCV (RBC) [Entitic vol] 94.1 fL Normal 81.0-99.0 [facility] Comment on above: Performed By: #### C BC ####[facility] [address] [address]Dr. Raymond Zi MONO # 0.7 103/ul Normal 0.3-0.8 [facility] Comment on above: Performed By: #### C BC ####[facility] [address] [place], [place] [address]Dr. Swapnabárbara Pinon Monocytes/100 WBC (Bld) 9.0 % Normal 1.7-12.0 [facility] Comment on above: Performed By: #### C BC ####[facility] [address] [place], [place] [address]Dr. Raymond Pinon NEUT # 3.5 103/ul Normal 1.4-6.5 [facility] Comment on above: Performed By: #### C BC ####[facility] [address] [address]Dr. Raymond Pinon Neutrophils/100 WBC (Bld) 46.3 % Normal 43.0-75.0 [facility] Comment on above: Performed By: #### C BC ####[facility] [address] [address]DrAbbe Pinon Platelet mean volume (Bld) [Entitic vol] 8.0 fL Critically low 9.5-13.5 [facility] Comment on above: Performed By: #### C BC ####[facility] [address] [address]DrAbbe Pinon PLT 326 103/ul Normal 150-450 [facility] Comment on above: Performed By: #### C BC ####[facility] [address] [address]DrAbbe Pinon RBC 4.21 106/ul Normal 4.20-5.40 [facility] Comment on above: Performed By: #### C BC ####[facility] [address] [address]DrAbbe Pinon WBC 7.5 103/ul Normal 4.0-11.0 [facility] Comment on above: Performed By: #### C BC ####[facility] [address] [address]Dr. Raymond Pinon CRPon 12-24-2022 CRP [Mass/Vol] mg/L Normal <=1.0 [facility] Comment on above: Performed By: #### C RP, BMP, CMADM #### [facility] [address] [place], [place] [address] Dr. Raymond Pinon CTA CHEST WO W CONon 023 CTA CHEST WO W CON EXAMINATION: CTA CLYDE ST WO W CON HISTORY: CHEST PAIN, UNSPECIFIED [ COMPARISON: 11/21/2021 TECHNIQUE: CT angiography of the pulmonary arteries following the administration of intravenous contrast. Coronal and sagittal MIP (maximum intensity projection) images were performed. Dose reduction techniques were achieved by using automated exposure control and/or adjustment of mA and/or kV according to patient size and/or use of iterative reconstruction technique. FINDINGS: The study is technically adequate for the diagnosis of pulmonary embolism, with good contrast bolus to the pulmonary arteries. TUBES AND IMPLANTS: None. CHEST WALL AND LOWER NECK: Unremarkable. BONES: Sclerotic lesions measuring 1.1 and 0.7 centimeters are seen involving the T8 and T9 vertebral bodies respectively. UPPER ABDOMEN: Unremarkable. MEDIASTINUM AND UDAY: Unremarkable. AORTA: No aneurysm PULMONARY ARTERIES: No embolism. HEART: Mild cardiomegaly CORONARY ARTERIES: No coronary artery calcifications. LUNG AND AIRWAYS: Mosaic attenuation PLEURA: Unremarkable. IMPRESSION: 1. No evidence for pulmonary embolism. 2. Mosaic attenuation suggesting small airways disease or small vessel disease. 3. Sclerotic lesions measuring 1.1 and 0.7 centimeters are seen involving the T8 and T9 vertebral bodies respectively. These are indeterminant and comparison with prior imaging and/or MR thoracic spine can be considered for evaluation on a nonemergent basis. Electronically authenticated by: JIM BARON Date: 2022-12-24 03:13 Normal [facility] PROF CHEM 8 (BAS METB)on Anion gap [Moles/Vol] 9.6 mmol/L Normal [facility] Comment on above: Performed By: #### C CUONG WELLINGTON CMADM #### [facility] [address] [address] [address] Raymond Pinon Calcium [Mass/Vol] 8.4 mg/dL Critically low 8.5-10.1 [facility] Comment on above: Performed By: #### C CUONG WELLINGTON CMADM #### [facility] [address] [address] [address] Raymond Pinon Chloride [Moles/Vol] 104 mmol/L Normal 98-107 [facility] Comment on above: Performed By: #### C CUONG [place]LL[place] CMADM #### [facility] [address] [address] [address] Raymond Pinon CO2 [Moles/Vol] 29.1 mmol/L Normal 21.0-32.0 [facility] Comment on above: Performed By: #### C RP, BMP, CMADM #### [facility] [address] [address] [address] Raymond Pinon Creatinine [Mass/Vol] 0.95 mg/dL Normal 0.55-1.02 [facility] Comment on above: Performed By: #### C RP, BMP, CMADM #### [facility] [address] [address] [address] Raymond Pinon EGFR-AF EGYPTIAN >60 Normal >=60 [facility] Comment on above: Performed By: #### C RP, BMP, CMADM #### [facility] [address] [address] [address] Raymond Pinon EGFR-NON AF EGYPTIAN >60 Normal >=60 [facility] Comment on above: Performed By: #### C RP, BMP, CMADM #### [facility] [address] [address] [address] Raymond Pinon Glucose [Mass/Vol] 88 mg/dL Normal 74-106 [facility] Comment on above: Performed By: #### C RP, BMP, CMADM #### [facility] [address] [address] [address] Raymond Pinon Potassium [Moles/Vol] 3.7 mmol/L Normal 3.5-5.1 [facility] Comment on above: Performed By: #### C RP, BMP, CMADM #### [facility] [address] [address] [address] Raymond Pinon Sodium [Moles/Vol] 139 mmol/L Normal 136-145 [facility] Comment on above: Performed By: #### C RP, BMP, CMADM #### [facility] [address] [address] [address] Raymond Pinon Urea nitrogen [Mass/Vol] 14.0 mg/dL Normal 7.0-18.0 [facility] Comment on above: Performed By: #### C RP, BMP, CMADM #### [facility] [address] [address] [address] Raymond Pinon Urea nitrogen/Creatinine [Mass ratio] 14.7 mg/mg Normal [facility] Comment on above: Performed By: #### C RP, BMP, CMADM #### [facility] [address] [place] [address] Dr. Raymond Pinon Coding Summary.on 12-17-2022 Coding Summary. CD:[id number] Gh 0bWw+PGhlYWQ+XK3YIJUaN 91weLBujC7PI9wZAH6LPSD QAXNYKV1HIR6vcPA0LMpcL 2VybiAv CfqjeWGwPY36UGc4OIT6rC ruALpmnO6iuVEcB7r6KrIg HB22rQ25YQncPSSwEjJ8Jo ZpbjsgbWFy W4dlMpEdtDJmGjb+PHRhYm xlIHdpZHRoPScxMDAlJyBz qBgbAV5nAi6gQKIeTISgnQ xhcHNlOiBj c1rxKRZxTWiwIM4csIikX9 YhoAJ4XZPgt8c2Ry93uBY+ DTPxBGS4tSxmQNqop413Dv Qza5beWZS1 mZCqDLrhBAN6R72ep6I8AG XnJHOtLEY4aED5xG9xuKae onptI5ClxKPjRsD7ORN8xR WfbF7bwZes ahtzhU7dKsn+Z81AIV2GGF HVWN7BKbm3B8NgIwqpyPO+ DS07DZTlYA82dXLnhDIsg7 cgdQz3AmKk OVTqKRC4sSqpJJbup6YkGV OkE93eoHGee7C6LWKhxLbq mEOwRgBllEP0hH7uCRdwlc dvn5uichzu Jlgyh6ligk32eB07M84vMA boQQVfKWD4PBWtFSLjpBdo up7gzJ4wMx6+DMtqx0muq0 lggPj4BaDj FDZkhnUfnXmeHSE2s9ChAn 30V9WkyKifd0KaMwg8po31 eZJmo4B6cNX0FJmqQGDzpI 0oRFbrLbF6 XVArGgZkpY21tKJjRKalLz 4biBzgvKihOU3lUPLmqczj VFQtiL0oEKCswDVazDftPH 4wNTBpbjtm c364BqQxWRD6VAIveLUbV2 JwkW2mGaYkBJEyICXcF0Tr iRGtNOttB392SFrfNnO9HO XkgsYfB2Ag VRPqrYjmYgV8e3J9Gs8Fg1 RzeepdTCI8HUybOTZaUrP6 OgDcCrQ0G4VaMbb1CJXsuJ ymZY3lD6Pt VYFccftkehlnhHM6EHPsAR ExdB51fWCzCRlkPb2eq8R0 w253JIJfNHAycZ01Al0stR ogMTBwdCBU uM4zznqlo0fterupUsGeBG RzQXt2SUj0KYYxeVisLmIc YWJ8YpM5DOT4jLYfgE7cfY gehxmavA7n Oyc+L30ajY8zSBG3ZCK0sn hyMMBaxmHyAI05CS83J7Pk PjwvdGFibGU+PGRpdiBzdH xvCX5cRsYn j7xib5ShBRtjE3JePDBfQI ihKsm1BQMrVLO2lHK3pJ3f CVKgANeie6E8fYU5F3Cfah Bqrp3ua4vv TPUfNGyoU83doXEhh9O0ZA WlpLB3QCRvlEwnAcSksW39 Oyc+ATVqxVbkx3PiBcmmw4 xha0qlfWq4 WfSrTVLdxcKvgPopBLN9m6 ZbFx61J53vXIrsJCSjMIWj STFwJRJosTbqhz0crZ4nLa 8+PGNvbCB3 bPK1jW0gYWNlFgU2NVlzY5 64DbLraCHqYmavc4qlv7un eWx8ShXkSGTmzgUqdYnwVT U1x3BqRg13 L63yWBjiTFHvLKHyPHFdAT PiiTdxvm5fnU8sHc1+PC9j f9wbys22uC24iNU+PHRkIH F7jJiaERtk OJKngH0cGGtjOwP1EGXyGs VmvJ08dLWiMLouSr0duUlj qFswNO6bROFvezwpy635Kg Tqv7blUJAz lFEaGSghSJN2F25vt0G3GH MmJYBhSDW0pFD1rU1qcZbm bjogbGVmdDsgdmVydGljYW jqRJozE113 IHRvcDsnPlBhdGllbnQgTm FmXIs3Q1OaGzw3VYQswPjp CA1qoKJdHPqkLf1qrBhwwS doHL5rIHLk aqqsp099UmKqi9nmZPIzpE AaAVtqBBO9W15fu9I0AZFr HCZdMUX3dGX5uB0jaTumis ogbGVmdDsg iyAkcLqlPKayVYalF636FV RvcDsnPkJpcnRoIERhdGU6 XW83XW03tONik5O8lQA9O7 BhZGRpbmct cbuazJA7QVSoUHNszE86Mc 0jaAbeGu6wJZKdUXZ6CLAm nBJoL1CdoS3cMnAhUZTdEI ToW5WxjFUb IKwcS650DBouVjB6AKDmgj AzP4GlYWQcjIfeAjL3u7P0 Zw3QH5Y4NK11BL31vFOuk4 U9oPR8V6Gs QZBxleozmklugJQ5YFBqCJ DonP11Ov1xvDehFw5zWFVs BMB5YMEmbXFbL6TaiD6aCd AjMDAwMDAw G7HahIEfASoiY298XNqyQp V3IFOaweTxA6YbDFXxbRda ElV2z4Z5Cb4IULv8CL06YH 26sIKdl0V6 pBY3X6LzCCOeklkblphwxO D2ULDwMADneF39Gh8opSoz Nw1jOVQyFQG5JJUgyHZuE5 FdtJ0xOdWx LVUlEKXzK7VcdNBvJKjtK4 75WSqoQaZ1UANeqmYiT4Hr OTGwlQbuMsS8m5Z0Kd6VPF TaRG49AWW6 tBK1SG49BA87V2XgHmmqqS FibGU+PHRhYmxlIHdpZHRo FMnaAXHiHiTtoCklFG6sFj 9yZGVyLWNv mObgaZNxStAyi7coPNDnIO ogRV2yxIdrS3HlvAL2FMAo l1j9Ja13J39nY0GryIV+PG GpxCD3qHA7 hT3mMnWgLvA4VLkhD385Qu YixZUrXwzbq1uor3zegDz4 QfT2HPYvdmXgaQfsIBI6l0 IhAq87F85e IHdpZHRoPSIxNSUiIHZhbG gihn9raN7qUm6+PGNvbCB3 tFL6mF2gAbVoKtB6MNamU0 49InRvcCIv Zddta8cpw4eglVd9MsGgBS HprxTbeKkmZGR1r7OeYx17 L0ZsdDkgr8JlFba9iq32nM Yqc9Z7cFX8 U7GiCNUezfqsrIWzmSfbEL 7sUBJosbhiMBXfrZ8fTZKe J6e2QhWiUwX9DAhbL4Solc W3YEGofLQn BGqcJCI6R91bx4W5AQVzOB KmJEN8zRY0lV6eaQfmgnqu bGVmdDsgdmVydGljYWwtYW zcC293TQNw lDbaFNDsnP1uRMVqzTRkbJ acHA6lVHVrdiizRwUKL2IU FluqUL0UZPvEWL55QM88uH Nov2A9iNA7 X0BlPVYipiicoyvwiAT7PX UlRWOolU92uNDhTRmxNh9w d3S6v022TUUsVYBarP36Qi 9udDogMTBw xROQhF2xnwvay6mbruziOg NmEPNyEGy8UTp2MOQozWix DyOqTWT9YdN8BRK2cQXixP 1hbGlnbjog qH4hVyg+GWBeXBZnKXs1Xd wvdGQ+CYZfPYD3qDrcAMtj OJGqsK1hZSXkY5r8VpDvSa U7IYpjN9Vt ONSwczyjBk07nV4cUyQcAo V4DYboR7GythJ6UKRriPWx INguOBQ4R96wv7R5HUSzIC PqFXV3kOP7 uJ6rcWsehppsiWSwiBtsjx UnjHraFQleXLzpU470VILy qFpjWaQoPAjsDSXkOU30ZB 49nCDcw8Y2 jMO7F8WwNLRogciunupffU I0UHTnDORemQ52qHGlMJxd Rb6do8O8q147JZIjSHNkoK 70Eq0wjDtm EBJnrGZGxU2tlezhz1goeo vcIrWzRVSiNLm8RJn6HFTz wMshQbOkUQN7FlB0BNY9iJ LseF7bkXrc vkyzdX3hSyf+RmVtYWxlPC 54VL36mJMxb8G4kIL4R8Ng REQamoybyspsbRM3NSQnES FbdW05bUSr GBwyTl3mq0A4x018PHAoEI QogB53Vc0caPgcUFHceXYK gT8vlfdyp7iedajoCjAjSH RaDLi3YIa2 XVIukYgmZbUnQPR5VxP9AS P7oFVlyQ0ofFzndbcmfQ9j Oyc+F9F7eEE8tIZpvKzeoI Q+UF70xu72 W8TfOmpePeh3HNGwLEW0xY V6vB8sMIMuPWubv0U3lCU6 X9KskhYsnk3zt2hcZPFrZY rzA11coJHt j8T4IYDhcYH2QQDwtQqhYa IlkN64Ulo+WNTesMkvn2Dq Jkjwj2wux8zceDy1XvRxKU IgdmFsaWdu MXH1t8AfBs45O09yMDpjAH RcGLSuXZQtPALbaCrkjb1y jP6nKa9+DOFigCQ4kDQ6kS 4pRnLzUnA6 SWayC691TeXvnDLuImyvt4 sou1gifOc2HxXbMJJdqlXr jYukANI4q7AxEx41C7VqiV nxj7KdWum4 di67vLEah3G7ySO4W2KaDQ AqsltmoGQraHmlOB2sGYIl pdnwDCDykL4uNEEaQ4j8Iv AqSnT0KQkx A4AduyN0REQcmPHyGIFynG AHvB0lagilc7dghwqfWfBx TUIfVYx0UOu6KSTzxYfhLk NuHPC8CuY9 JQQ2jBPvrL5zrZcghwsexI 9wOyc+BFv9i6rkgNEwKT2q zBZ5WV50OA42bBLqy2L3zJ R8S6ZvMSKp mwphnowksFT5BWPjQFEuuP 81Rq4yhSeaKt1yPNHqTNK2 WJTvgMMeK5BdaB3bPqZwKW VmTSAgY3Cj xLIgQOcqL180ECcxWoT9AE ErpqToF8BkESEwfHqmYxI7 j9A0Ql9IPV06CW87LP62jY Jyt8Z5wMQ4 T1LeAFBxotkpsyjekRP5NX ZmXBOoeV96Nx2jqXbmUl8x TSUpKVZ3TWAslLLaG9HsyR 9yOiAjMDAw UVJaT0RviDCvCDnuT313QY ntQjD7ETAwmrViZ6HaYWMw dCjwJsJ1h8C8Td9KNu24RV 01FX31xULb s8J4kSD5G1ApBPAlmpenwk hihGS0WITaYQMeeT09Jn0o oIbjYa6lKROpYHU3MQIkiY XbF2HjsM1z PfBjRHVaTVOwV9IfkHYdJD izQ967HJsmXeP3BAIyplUc Q4SqCWUntRqiTzF9y4E1Aq 9OLKvivvy4 L9RzAgaqmSL+NZ47QNHxCG 64hGZukTQlw8oaoJs1WyKl MWHdVDH5jAthMKxax1HzTK StO62woBDc c2U6 (more content not included)... Normal [facility] Consent for Treatmenton 11-12 Consent for Treatment [id number]#1. 00CD:127 Normal [facility] HIPAA Forms Officeon 023 HIPAA Forms Office [id number]#1. 00CD:127 Normal [facility] Legal Correspondence Officeo n 12-10-2022 Legal Correspondence Office [id number]#1. 00CD:127 Normal [facility] Office/Clinic Note-Physician on 12-10-2022 Office/Clinic Note-Physician [id number]#1. 00CD:127 Normal [facility] Patient History Officeon Patient History Office [id number]#1. 00CD:127 Normal [facility] Outside Records Officeon Outside Records Office [id number]#1. 00CD:127 [facility] Referrals Officeon Referrals Office [id number]#1. 00CD:127 [facility] CBC AUTO DIFFon 11-07-2022 BASO # 0.0 103/ul Normal 0.0-0.1 [facility] Comment on above: Performed By: #### C BC #### [facility] [address] [place] [address] Dr. Raymond Pinon Basophils/100 WBC (Bld) 0.3 % Normal 0.2-2.0 [facility] Comment on above: Performed By: #### C BC #### [facility] [address] [place] [address] Dr. Raymond Pinon EO # 0.3 103/ul Normal 0.0-0.7 [facility] Comment on above: Performed By: #### C BC #### [facility] [address] [place] [address] Dr. Raymond Pinon Eosinophils/100 WBC (Bld) 3.6 % Normal 0.9-7.0 [facility] Comment on above: Performed By: #### C BC #### [facility] [address] [place] [address] Dr. Raymond Pinon Erythrocyte distribution width (RBC) [Ratio] 12.8 % Normal 11.0-15.0 [facility] Comment on above: Performed By: #### C BC #### [facility] [address] [place] [address] Dr. Raymond Pinon Hematocrit (Bld) [Volume fraction] 40.0 % Normal 36.0-48.0 [facility] Comment on above: Performed By: #### C BC #### [facility] [address] [place] [address] Dr. Raymond Pinon Hemoglobin (Bld) [Mass/Vol] 13.1 g/dL Normal 12.0-16.0 [facility] Comment on above: Performed By: #### C BC #### [facility] [address] [place] [address] Dr. Raymond Pinon IG # 0.04 10e3/ul Critically high 0.00-0.03 [facility] Comment on above: Performed By: #### C BC #### [facility] [address] [place] [address] Dr. Raymond Pinon IG % 0.5 % Normal 0.0-0.5 [facility] Comment on above: Performed By: #### C BC #### [facility] [address] [place] [address] Dr. Raymond Pinon LYMPH # 1.7 103/ul Normal 1.2-3.8 [facility] Comment on above: Performed By: #### C BC #### [facility] [address] [place] [address] Dr. Raymond Pinon Lymphocytes/100 WBC (Bld) 19.2 % Critically low 20.5-60.0 [facility] Comment on above: Performed By: #### C BC #### [facility] [address] [place] [address] Dr. Raymond Pinon MANUAL DIFF REQ NO Normal [facility] Comment on above: Performed By: #### C BC #### [facility] [address] [place] [address] Dr. Raymond Pinon MCH (RBC) [Entitic mass] 31.3 pg Normal 26.7-34.0 [facility] Comment on above: Performed By: #### C BC #### [facility] [address] [place] [address] Dr. Raymond Pinon MCHC (RBC) [Mass/Vol] 32.8 g/dL Normal 29.9-35.2 [facility] Comment on above: Performed By: #### C BC #### [facility] [address] [place] [address] Dr. Raymond Pinon MCV (RBC) [Entitic vol] 95.5 fL Normal 81.0-99.0 [facility] Comment on above: Performed By: #### C BC #### [facility] [address] [place] [address] Dr. Raymond Pinon MONO # 0.6 103/ul Normal 0.3-0.8 [facility] Comment on above: Performed By: #### C BC #### [facility] [address] [place] [address] Dr. Raymond Pinon Monocytes/100 WBC (Bld) 6.6 % Normal 1.7-12.0 [facility] Comment on above: Performed By: #### C BC #### [facility] [address] [address] [address] Raymond Pinon NEUT # 6.1 103/ul Normal 1.4-6.5 [facility] Comment on above: Performed By: #### C BC #### [facility] [address] [address] [address] Raymond Pinon Neutrophils/100 WBC (Bld) 69.8 % Normal 43.0-75.0 [facility] Comment on above: Performed By: #### C BC #### [facility] [address] [address] [address] Raymond Pinon Platelet mean volume (Bld) [Entitic vol] 7.9 fL Critically low 9.5-13.5 [facility] Comment on above: Performed By: #### C BC #### [facility] [address] [address] [address] Raymond Pinon PLT 368 103/ul Normal 150-450 [facility] Comment on above: Performed By: #### C BC #### [facility] [address] [address] [address] Raymond Pinon RBC 4.19 106/ul Critically low 4.20-5.40 [facility] Comment on above: Performed By: #### C BC #### [facility] [address] [address] [address] Raymond Pinon WBC 8.7 103/ul Normal 4.0-11.0 [facility] Comment on above: Performed By: #### C BC #### [facility] [address] [address] [address] Raymond Pinon GLYCOHEMOGLOBIN A1Con 2021 ADA RECOMMENDATION SEE BELOW Normal [facility] Comment on above: Result Comment: ADA RECOMMENDED LIMIT 4.0 - 6.0 ADA THERAPEUTIC TARGET < 7.0 ACTION SUGGESTED > 7.0 Performed By: #### A 1C ####[facility] [address] [address]Dr. Raymond Pinon Glucose [Mass/Vol] 94 mg/dL Normal [facility] Comment on above: Performed By: #### A 1C ####[facility] [address] [id number]. Raymond Pinon HbA1c (Bld) [Mass fraction] 4.9 % Normal 4.5-6.2 [facility] Comment on above: Performed By: #### A 1C ####[facility] [address] [id number]. Raymond Pinon LIPID PROFILEon 11-07-2022 CHOL-HDL RATIO NORM SEE BELOW Normal [facility] Comment on above: Result Comment: 3.3 - 4.4 LOW RISK 4.4 - 7.1 AVERAGE RISK 7.1 - 11.0 MODERATE RISK >11.0 HIGH RISK Performed By: #### L IVER, TSH, LIPID, BMP ####[facility] [address] [id number]. Raymond Pinon Cholesterol [Mass/Vol] 213 mg/dL Critically high <=200 [facility] Comment on above: Performed By: #### L IVER, TSH, LIPID, BMP ####[facility] [address] [id number]. Raymond Pinon Cholesterol in HDL [Mass/Vol] 79 mg/dL Critically high 40-60 [facility] Comment on above: Performed By: #### L IVER, TSH, LIPID, BMP ####[facility] [address] [id number]. Raymond Pinon Cholesterol in LDL [Mass/Vol] 116.8 mg/dL Normal [facility] Comment on above: Performed By: #### L IVER, TSH, LIPID, BMP ####[facility] [address] [id number]. Raymond Pinon Cholesterol.total/Ch olesterol in HDL [Mass ratio] 2.7 {ratio} Normal [facility] Comment on above: Performed By: #### L IVER, TSH, LIPID, BMP ####[facility] [address] [id number]. Raymond Pinon HDL NORMAL > or = 60 mg/dl - LO W CARDIOVASCULAR RISK <40 mg/dl - HIGH CARDIOVASCULAR RISK Normal [facility] Comment on above: Performed By: #### L IVER, TSH, LIPID, BMP ####[facility] [address] [address]Dr. Raymond Pinon LDL CALC NORMAL SEE BELOW Normal [facility] Comment on above: Result Comment: <100 mg/dl OPTIMAL 100 - 129 mg/dl NEAR OR ABOVE OPTIMAL 130 - 159 mg/dl BORDERLINE HIGH 160 - 189 mg/dl HIGH >190 mg/dl VERY HIGH Performed By: #### L IVER, TSH, LIPID, BMP ####[facility] [address] [address]Dr. Raymond Pinon Triglyceride [Mass/Vol] 86 mg/dL Normal <=150 [facility] Comment on above: Performed By: #### L IVER, TSH, LIPID, BMP ####[facility] [address] [address]Dr. Raymond Pinon VLDL CALC 17.2 mg/dL Normal [facility] Comment on above: Performed By: #### L IVER, TSH, LIPID, BMP ####[facility] [address] [address]Dr. Raymond Pinon LIVER PROFILEon 11-07-2022 Albumin [Mass/Vol] 3.6 g/dL Normal 3.4-5.0 [facility] Comment on above: Performed By: #### L IVER, TSH, LIPID, BMP ####[facility] [address] [address]Dr. Raymond Pinon Albumin/Globulin [Mass ratio] 0.9 {ratio} Normal [facility] Comment on above: Performed By: #### L IVER, TSH, LIPID, BMP ####[facility] [address] [address]Dr. Raymond Pinon ALP [Catalytic activity/Vol] 129 U/L Critically high 46-116 [facility] Comment on above: Performed By: #### L IVER, TSH, LIPID, BMP ####[facility] [address] [address]Dr. Raymond Pinon ALT [Catalytic activity/Vol] 42 U/L Normal 14-59 [facility] Comment on above: Performed By: #### L IVER, TSH, LIPID, BMP ####[facility] [address] [address]Dr. Raymond Pinon AST [Catalytic activity/Vol] 33 U/L Normal 15-37 [facility] Comment on above: Performed By: #### L IVER, TSH, LIPID, BMP ####[facility] [address] [address]Dr. Raymond Pinon BILI, CONJUGATED 0.1 mg/dL Normal 0.0-0.2 [facility] Comment on above: Performed By: #### L IVER, TSH, LIPID, BMP ####[facility] [address] [address]Dr. Raymond Pinon Bilirubin [Mass/Vol] 0.2 mg/dL Normal 0.2-1.0 [facility] Comment on above: Performed By: #### L IVER, TSH, LIPID, BMP ####[facility] [address] [address]Dr. Raymond Pinon Globulin (S) [Mass/Vol] 3.8 g/dL Normal [facility] Comment on above: Performed By: #### L IVER, TSH, LIPID, BMP ####[facility] [address] [address]Dr. Swapnabárbara Pinon Protein [Mass/Vol] 7.4 g/dL Normal 6.4-8.2 [facility] Comment on above: Performed By: #### L IVER, TSH, LIPID, BMP ####[facility] [address] [address]Dr. Raymond Pinon MG MAMM SCREEN 3D LAN CADon 11-07-2022 MG MAMM SCREEN 3D LAN CAD Patient: RUPINDER MILLER Exam Date: 11/07/2022 : 1970 Gender:F Ordering : DR ADEEL CEJA . Admission #: [id number] Family : Order #: [id number] CLICK HERE TO VIEW EXAM RADIOLOGY REPORT PROCEDURE: MAMMOGRAM SCREENING 3D BILATERAL CAD COMPARISON: MG MAMM SCREEN 3D LAN CAD, 09/20/2021. INDICATIONS: Screening mammography Calculator Name NCI Breast Cancer Risk Assessment Tool 5 Year Breast Cancer Risk 0.80% Lifetime Breast Cancer Risk 7.10% Personal Breast Cancer No Personal Ovarian Cancer No Treatments None Family Cancers Sister with thyroid cancer at age 46. LOCATION: [facility] BREAST COMPOSITION: Heterogeneously dense,which may obscure small masses. FINDINGS: DIAGNOSTIC CATEGORY 1--NEGATIVE. NO CHANGE FROM COMPARISON ASSESSMENT. Scattered benign-appearing lymph nodes are present. RIGHT BREAST: No significant suspicious finding. LEFT BREAST: No significant suspicious finding. RECOMMENDATIONS: ROUTINE MAMMOGRAM AND CLINICAL EVALUATION IN 12 MONTHS. PLEASE NOTE: A NORMAL MAMMOGRAM DOES NOT EXCLUDE THE POSSIBILITY OF BREAST CANCER. A CLINICALLY SUSPICIOUS PALPABLE LUMP SHOULD BE BIOPSIED. Dictated by: Mackenzie Ritchie MD on 11/07/2022 at 15:44 Approved by: Mackenzie Ritchie MD on 11/07/2022 at 15:46 Normal [facility] PROF CHEM 8 (BAS METB)on Anion gap [Moles/Vol] 10.2 mmol/L Normal [facility] Comment on above: Performed By: #### L IVER, TSH, LIPID, BMP ####[facility] [address] [address]Dr. Raymond Pinon Calcium [Mass/Vol] 8.6 mg/dL Normal 8.5-10.1 [facility] Comment on above: Performed By: #### L IVER, TSH, LIPID, BMP ####[facility] [address] [address]Dr. Raymond Pinon Chloride [Moles/Vol] 104 mmol/L Normal 98-107 [facility] Comment on above: Performed By: #### L IVER, TSH, LIPID, BMP ####[facility] [address] [address]Dr. Raymond Pinon CO2 [Moles/Vol] 30.8 mmol/L Normal 21.0-32.0 [facility] Comment on above: Performed By: #### L IVER, TSH, LIPID, BMP ####[facility] [address] [address]Dr. Yilan Pinon Creatinine [Mass/Vol] 0.86 mg/dL Normal 0.55-1.02 [facility] Comment on above: Performed By: #### L IVER, TSH, LIPID, BMP ####[facility] [address] [address]Dr. Raymond Pinon EGFR-AF EGYPTIAN >60 Normal >=60 [facility] Comment on above: Performed By: #### L IVER, TSH, LIPID, BMP ####[facility] [address] [address]Dr. Raymond Pinon EGFR-NON AF EGYPTIAN >60 Normal >=60 [facility] Comment on above: Performed By: #### L IVER, TSH, LIPID, BMP ####[facility] [address] [address]Dr. Raymond Pinon Glucose [Mass/Vol] 92 mg/dL Normal 74-106 [facility] Comment on above: Performed By: #### L IVER, TSH, LIPID, BMP ####[facility] [address] [place], [place] [address]Dr. Raymond Pinon Potassium [Moles/Vol] 4.0 mmol/L Normal 3.5-5.1 [facility] Comment on above: Performed By: #### L IVER, TSH, LIPID, BMP ####[facility] [address] [address]Dr. Raymond Pinon Sodium [Moles/Vol] 141 mmol/L Normal 136-145 [facility] Comment on above: Performed By: #### L IVER, TSH, LIPID, BMP ####[facility] [address] [address]Dr. Raymond Pinon Urea nitrogen [Mass/Vol] 15.0 mg/dL Normal 7.0-18.0 [facility] Comment on above: Performed By: #### L IVER, TSH, LIPID, BMP ####[facility] [address] [address]Dr. Raymond Pinon Urea nitrogen/Creatinine [Mass ratio] 17.4 mg/mg Normal [facility] Comment on above: Performed By: #### L IVER, TSH, LIPID, BMP ####[facility] [address] [place], [place] [address]DwAbbe Pinon TSHon 11-07-2022 TSH 1.680 uIU/mL Normal 0.358-3.740 [facility] Comment on above: Performed By: #### L IVER, TSH, LIPID, BMP ####[facility] [address] [place], [place] [address]SdAbbe Pinon US THYROIDon 11-07-2022 US THYROID EXAMINATION: US THYROID HISTORY: Imaging result abnormal COMPARISON: No relevant comparison available. TECHNIQUE: Sonographic images of the thyroid gland were obtained. FINDINGS: The right thyroid gland is normal in size, contour and homogeneous echotexture measuring 5.0 x 1.7 x 1.4 cm. No focal nodules The thyroid isthmus is homogeneous measuring 3.7 mm. No focal nodule The left thyroid lobe is normal in size, contour and homogeneous echotexture measuring 4.8 x 1.2 x 1.5 cm. No focal nodules IMPRESSION: Normal exam Electronically authenticated by: MACKENZIE RITCHIE Date: 2022-11-07 16:37 Normal [facility] VITAMIN D 25 OHon 11-07-2022 VIT D 25-OH 52.2 ng/mL Normal [facility] Comment on above: Performed By: #### V ITAD #### [facility] [address] [place] [address] Dr. Raymond Pinon VIT D RANGES SEE BELOW Normal [facility] Comment on above: Result Comment: <20 ng/mL Vit D deficient 20 - <30 ng/mL Vit D insufficient 30 - 100 ng/mL Vit D sufficient >100 ng/mL Potential Toxicity Performed By: #### V ITAD #### [facility] [address] [place] [address] Dr. Raymond RAUSCHOVon 09-26-2022 CNOV Office Visit ([facility] ) RUPINDER MILLER ([id number]) 1970 F Date Time Provider Department 09/26/22 1:00 PM COOPER VALLE During your visit today, we recorded the following information about you: Cooper Valle, DO 09/26/2022 1:27 PM Signed Rupinder Miller is a patient of Adeel Ceja MD. CHIEF COMPLAINT: Rupinder Miller is a 52 year old female who presents today for new evaluation of Left shoulder pain. HISTORY OF PRESENT ILLNESS: Ms. Miller is a 52-year-old female presents today for evaluation of her left shoulder. She has had pain in the left shoulder for years. She states that she was told at one point that she had a torn rotator cuff. She is done physical therapy medications and injections. She states injections seem to make things worse. Raising the arm out to the side and overhead is difficult. She notices pain that radiates into her neck and all the way down her left arm. She states it feels as if a TENS unit is running down her arm constantly. She states that she recently had an MRI of her neck performed and has a follow-up with a neck doctor to go over this. She is not sure of the results but states that an MRI of her neck in the past showed some significant changes . She had both carpal tunnels released and still gets some numbness and tingling in the left hand. PAIN EVALUATION 09/26/2022 1259 Pain Level: -- PATIENT IS UNABLE TO RATE HER PAIN Pain Location: Shoulder-Left Description: Aching;Other: See comment VIBRATING, ELECTRICAL Duration Amount of Time: 1 Duration Units: Months Frequency: Continuous Intervention/Comfort measure: Other: See comment;Reposition;Col d;Medication Comments: MOTRIN, NEURONTIN, MUSCLE RELAXER ROS: REVIEW OF SYMPTOMS: Constitutional: patient denies any recent fever or significant change in weight Gastrointestinal: patient denies any current abdominal discomfort Musculoskeletal: as noted in the HPI Neurologic: as noted in the HPI SOCIAL HISTORY: Tobacco Use: Not on file ALLERGIES: ALLERGIES Allergen Reactions Acetaminophen-Caff-* Hives, Other: See Comments Fentanyl Other: See Comments Headache and nausea Hydrochlorothiazide Hives Midazolam Other: See Comments Headache and nausea Morphine Rash PAST MEDICAL HISTORY: No past medical history on file. SOCIAL HISTORY: Tobacco Use: Not on file PHYSICAL EXAMINATION: Patient has diffuse tenderness palpation around the left shoulder and upper trapezial area. She can initiate left shoulder abduction forward flexion but heavily guards when she gets to about 45 degrees. Passively I can achieve near full range of motion with some discomfort. She has a negative drop arm test. He has adequate strength in both shoulders with resisted abduction and forward flexion. No significant weakness noted. She has decree sensation of the median nerve distribution in the left hand. IMAGING: X-rays of the patient's left shoulder taken in the office today reveal no fractures or dislocations. There are some mild degenerative changes of the chronic joint MRI of the patient's left shoulder brought in by the patient's Was reviewed and does not show any rotator cuff tearing. There are some mild rotator cuff this. There are some increased signal in the superior glenoid labrum which could represent a labral tear.. There is large inferior spurring of the acromioclavicular joint causing bony impingement on the rotator cuff CLINICAL IMPRESSION / ASSESSMENT: Impingement syndrome left shoulder with possible glenoid labral tearing Cervical radiculopathy RECOMMENDATION / PLAN: I explained the patient that rotator cuff issues and labral issues not typically create any nerve type symptoms down the entire left arm. She states that she has some significant cervical issues and I recommend that she be evaluated by a cervical specialist for this. If they determined that her neck is not a problem then I would have her return for reevaluation in which case we may consider a left shoulder arthroscopic decompression. Patient will follow-up with me as needed. I spent a total of 20 minutes on the date of the service which included preparing to see the patient, [id number] patient care, completing clinical documentation, obtaining and/or reviewing separately obtained history, performing a medically appropriate examination, and counseling and educating the patient/family/caregiv er. Verbal health education was given to patient. Patient verbalizes understanding and agrees with the treatment plan as detailed above. Cooper Valle DO Referring Provider: [facility] [[id number]] Allergies As of Date: 09/26/2022 Noted Allergy Reaction [id number] ILAMINE 11/29/2013 4 - Hives 14 - Other: See Comments FENTANYL 07/16/2017 14 - Other: See Comments Comments: Headache and nausea HYDROCHLOROTHI (more content not included)... Normal [facility] XR SHLDR >/=3V AP/DEQUAN AP/OTH R LTon 09-26-2022 XR SHLDR >/=3V AP/DEQUAN AP/OTHR LT * * *Final Report* * * DATE OF EXAM: Sep 26 2022 12:21PM CHX 5252 - XR SHLDR >/=3V AP/DEQUAN AP/OTHR LT / PROCEDURE REASON: Left shoulder pain, unspecified chronicity * * * * Physician Interpretation * * * * EXAMINATION: XR SHLDR >/=3V AP/DEQUAN AP/OTHR LT HISTORY: Chronic left shoulder pain. Left shoulder pain, unspecified chronicity . TECHNIQUE: XR SHLDR >/=3V AP/DEQUAN AP/OTHR LT Laterality: LEFT Number of different views (projections): 3 M: XB_1 COMPARISON: None RESULT: Glenohumeral joint space is preserved. Acromiohumeral interval is maintained. Mild AC joint degenerative change. No fracture or dislocation. No other significant abnormality. IMPRESSION: Mild left AC joint osteoarthritis. Renewal Specialist: PSCB Transcribe Date/Time: Sep 26 2022 3:11P Dictated by : LAKESHA GARSIA MD This examination was interpreted and the report reviewed and electronically signed by: LAKESHA GARSIA MD on Sep 26 2022 3:11PM EST [id number] Normal [facility] XR SHOULDER GENERAL 3V OR MO RE AP/TRUE AP/OTHER LEFTon 09-26-2022 [facility] MRI Cervical Spine w/oon MRI Cervical Spine w/o TECHNIQUE: Multiplanar multisequence images of cervical spine were obtained without IV contrast. COMPARISON: None available. FINDINGS: The spine is in anatomic alignment. There is no acute fracture. There is preservation of the vertebral body heights. There is intervertebral disc desiccation and disc space narrowing at every level. There is increased marrow signal involving the posterior articular surfaces of vertebral bodies indicating edema which may be a specific pain generator at this level. The bone marrow signal is within normal limits at the remaining levels. The cervical cord is normal in course and caliber without signal abnormality. The visualized portions of the posterior fossa are within normal limits There is no prevertebral soft tissue swelling. C2-C3: There is no disc herniation, central canal narrowing or neural foraminal narrowing. C3-C4: There is no disc herniation, central canal narrowing or neural foraminal narrowing. C4-C5: There is a 2 mm disc osteophyte complex asymmetric towards the right side flattening the thecal sac but not abutting the cord. There is no narrowing of central canal. There is mild right neural foraminal narrowing. The left neural foramen is unremarkable. There is mild bilateral facet arthrosis C5-C6: There is a 3 mm disc osteophyte complex compressing the thecal sac and abutting the cord without central canal narrowing. There is mild bilateral facet and uncovertebral joint hypertrophy producing mild bilateral neural C6-C7: There is a 4 mm disc osteophyte complex asymmetric towards the left side flattening the thecal sac but not abutting the cord with mild central canal narrowing. There is mild bilateral facet arthrosis of mild to moderate left neural foraminal narrowing. C7-T1: There is no disc herniation, central canal narrowing or neural foraminal narrowing. IMPRESSION: There is spondylosis of the lumbar spine most notably at C5-C6 and C7 without significant narrowing of central canal. There is increased marrow signal, edema involving the articular surfaces and the posterior vertebral bodies at C6-C7 which might be potential specific pain generators. Report reported and signed by GINA RUBIO on 09/26/2022 1001 Normal [facility] Marketing Lead CNOVon 09-19-2022 CNOV Office Visit ([facility] ) MILLERRUPINDER Lanza ([id number]) 1970 F Date Time Provider Department 09/19/22 1:30 PM AMANDA ECHEVERRIA During your visit today, we recorded the following information about you: Amanda Echeverria PA-C 09/19/2022 3:01 PM Signed HISTORY: Rupinder Lanza Miller is a 52 year old female who presents today following up 2 weeks status post Left carpal tunnel release from 09/06/2022. Patient reports hand is doing well. Denies fever, chills, drainage from the incision. Her bigger issues is her left shoulder pain for which she is seeing Dr. Valle for next week. Her shoulder pain was so severe she had to go to the ED and was given some [place]. The shoulder pain feels electrical She is scheduled for a cervical MRI as well. Reports having a lot of muscular spasm. She has had a cortisone injection and physical therapy at outside facility. Does have a history of chronic cervical issues in the past per patient The patient's past medical history, surgical history, social history, family history, medications and allergies were reviewed with the patient today and are available in the chart for further review. EXAMINATION: On physical exam of the Left hand today, the incision is healing nicely. There is No erythema, warmth, drainage coming from the incision. Normal ROM of all of the fingers and wrist. Sensation to light touch is intact in the median nerve distribution. Sensation to light touch is intact in the ulnar and radial nerve distributions. Radial pulse is 2+. Capillary refill is brisk. Neurovascularly intact. Brief exam of left shoulder limited range of motion and muscular spasm noted. No warmth or erythema at shoulder, mild discomfort with neck range of motion. Moderate weakness noted. RADIOGRAPHS: no new films today IMPRESSION: S/P Left Carpal Tunnel Release Left shoulder pain/ arm pain question referral from cervical spine, shoulder MRI notes a type II SLAP tear report from outside facility PROCEDURE: None. PLAN: All sutures removed today without complication re enforced with steri strips. Patient with electrical left arm pain . Discussed with patient the MRI with the SLAP tear would not expect to be causing this atypical electrical radiating arm pain. She is scheduled for a MRI on her cervical spine at outside facility. Recommend patient follow through with this testing and then keep follow up with Dr. Valle next week to further review her shoulder MRI and clinical condition. Discussed limiting pushing, pulling, lifting activities until the incision is fully healed. No submerging the hand in water until incision is healed. Incision may be cleaned once a day with peroxide and covered with a band-aid during activities in which it could get dirty, otherwise it may be left open to the air. No ointments, creams, or gels. Follow up 1 week for shoulder eval with Dr. Valle. Amanda Echeverria PA-C Referring Provider: COOPER VALLE [[id number]] Allergies As of Date: 09/19/2022 Noted Allergy Reaction [id number] ILAMINE 11/29/2013 4 - Hives 14 - Other: See Comments FENTANYL 07/16/2017 14 - Other: See Comments Comments: Headache and nausea HYDROCHLOROTHIAZIDE 06/21/2022 4 - Hives MIDAZOLAM 07/16/2017 14 - Other: See Comments Comments: Headache and nausea MORPHINE 12/13/2013 2 - Rash Date Reviewed: 09/19/2022 Reviewed by: Amanda Echeverria PA-C - Fully Assessed Reason for Visit: Post Op [174] Primary Visit Diagnosis:Post-operati ve state [Z98.890] Other Visit Diagnosis:S/P carpal tunnel release [Z98.890] Prescriptions as of 09/19/2022 - methocarbamol (ROBAXIN ORAL) Take 750 mg by mouth. - mirtazapine (REMERON) 15 mg tablet Take 7.5 mg by mouth daily at bedtime. - omega-3/dha/epa/dpa/fi sh oil (OMEGA-3 2100 ORAL) Take by mouth. - ALPRAZolam (XANAX) 1 mg tablet Take 1 mg by mouth three times daily as needed. - busPIRone HCl 30 mg tablet - cholecalciferol, Vitamin D3, (VITAMIN D3) 1,250 mcg (50,000 unit) cap capsule One capsule q.month - gabapentin (NEURONTIN) 800 mg tablet - NIFEdipine XL (ADALAT CC) 60 mg 24 hr tablet - promethazine (PHENERGAN) 25 mg tablet Take 25 mg by mouth. - tiZANidine (ZANAFLEX) 4 mg tablet - meclizine (ANTIVERT) 25 mg tab Take 25 mg by mouth three times daily as needed. Problem List As Of Date 09/19/2022 Noted Resolved Dizziness [R42] 07/22/2018 Essential (primary) hypertension [I10] 11/23/2021 Fibromyalgia [M79.7] 04/30/2019 Hearing loss [H91.90] 01/06/2019 Meniere's disease [H81.09] 01/06/2019 Rash and other nonspecific skin eruption [R21] 04/16/2021 Tinnitus [H93.19] 07/22/2018 Carpal tunnel syndrome of right wrist [G56.01] 07/22/2022 Carpal tunnel syndrome of left wrist [G56.02] 09/06/2022 Encounter Status:Closed by AMANDA ECHEVERRIA on 09/19/22 Normal [facility] CNOVon 09-16-2022 CNOV Office Visit (SANJANA ) RUPINDER MILLER ([id number]) 1970 F Date Time Provider Department 09/16/22 2:30 PM [facility] During your visit today, we recorded the following information about you: Pulse Blood pressure Weight Height 99/minute 140/87 62.6 kg 1.651 m Umm Mercedes MD 09/16/2022 5:47 PM Signed [facility] Office Visit Date: September 16, 2022 Rupinder Miller is seen in consultation requested by Dr. Adeel Ceja for an opinion regarding shoulder pain. My final recommendations will be communicated back to the requesting physician by way of shared medical record or via US mail. 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 Umm Mercedes MD September 16, 2022 HISTORY OF PRESENT ILLNESS Rupinder Miller presents to [facility] for the evaluation of acute left shoulder pain. Onset: 21 days ago Precipitating event: shoulder examination and injection by outside orthopedic provider (Edison Betancourt [employer]PER[employer] - [place]) Location: shoulder - left Radiation: radiates to the left upper extremity along the anterior aspect to the level of the wrist Quality: excruciating and cramping Progression: persistent and worsening Severity: 10 on a scale of 0-10. Frequency: constant Alleviating factors: medications, ice , and heat Exacerbating factors: sitting, standing, forward flexion, lifting, and walking Symptoms interfere with: physical activity, sitting, household cleaning, reaching for shelves, lifting, and social activities. Red flags: Patient denies difficulty with bowel or bladder control, unintentional weight loss, and fevers, chills, or night sweats. Previous/Current Treatment Pain medications (efficacy, side effects): Gabapentin 800 mg Oxycodone 5-325 mg Tizanidine 4 mg Injections: 08/26/2022 Dr. Edison Fitzpatrick steroid injection Surgeries: None Active conservative therapy: None Passive conservative therapy: None Current anticoagulation: None OBJECTIVE BP 140/87 Pulse 99 Ht 5' 5 (1.65m) Wt 138 lb (62.6kg) LMP 07/15/2022 BMI 22.96 kg/(m2). Physical Examination: General: well appearing, alert, and in no acute distress Skin: skin color, texture, turgor normal, no rashes or lesions HEENT: normocephalic, atraumatic, sclera non-icteric Cardiac: Regular rhythm and rate. No lower extremity edema. Pulmonary: Unlabored breathing on room air. Symmetric chest expansion Abdomen: Soft, non-distended, non-tender. Left Shoulder: no skin color changes. Markedly restricted range of motion due to pain. Significant guarding. No pain with light touch. Pain with palpation of posterior shoulder. I did not manipulate shoulder to assess range of motion fully due to severe pain. Extremities normal. No deformities, edema, or skin discoloration Neurological: Mental Status: alert, oriented to person/place/time Cranial Nerves: CN2-12 grossly intact. Sensory: Intact to light touch throughout Reflexes: Not Examined Motor Strength: Workday Director strength intact. Unable to fully assess strength of left upper extremity. Standard gait: normal. Assistive device: independent New or Pertinent Data: Imaging: OSH left shoulder MRI uploaded into our records ASSESSMENT: Rupinder Miller is a 52 year old female with PMH fibromyalgia, anxiety, HTN, low back pain who presents with acute left shoulder pain. She has chronic shoulder pain for which she was undergoing evaluation and injection by an outside provider. At this exam, per patient, she experienced acute worsening of pain. Ultimately MRI shoulder was done per patient and demonstrated Type 2 SLAP lesion per patient's copy of MRI report. We uploaded her MRI today to our medical record system. I explained to the patient that I do not manage acute orthopedic conditions and I would not be able to guide her appropriately on the rehabilitative strategies, activity restrictions, surgical options etc. She would be best evaluated by orthopedics and she stated a desire to follow up with Dr. Valle/Amanda Echeverria sooner than later. I paged KAUSHIK Echeverria who promptly responded and will assist with facilitating a sooner appointment for the patient. In the mean time, I've counseled the patient to continue (more content not included)... Normal [facility] MRI SHOULDER LT WO CONon MRI SHOULDER LT WO CON EXAMINATION: MRI SHOULDER LT WO CON HISTORY: Tear of left rotator cuff COMPARISON: No relevant comparison available. TECHNIQUE: A variety of imaging planes and parameters were utilized for visualization of suspected pathology. Imaging was performed without contrast. FINDINGS: ROTATOR CUFF REGION CUFF TENDONS: Moderately increased signal intensity in the supraspinatus and subscapularis tendons indicates tendon degeneration and/or tendinitis. No ruchi tear is seen. CUFF MUSCLES: Normal appearing muscles. DELTOID: Normal. No significant atrophy or tear. LONG BICEPS TENDON: Normal. No abnormal signal, attrition, or tear. LABRUM/BICEPS ANCHOR SUPERIOR: Increased signal and fraying of the superior labrum, with detachment of the labrum and biceps tendon from the glenoid rim. Findings are most consistent with a Type II SLAP lesion. ANTERIOR/INFERIOR: Attenuation consistent with a patient of this age. POSTERIOR: Normal. No posterior labrum abnormality. CAPSULE Normal. No visible capsular laxity or thickening. AC JOINT REGION AC JOINT: Moderate osteoarthropathy with mild-moderate narrowing of the underlying coracoacromial arch. AC LIGAMENTS: Normal acromioclavicular ligament. CC LIGAMENTS: Normal coracoclavicular ligaments. ACROMION: Normal horizontal (Type I) configuration. SUBACROMIAL BURSA: Normal. No significant effusion. HYALINE CARTILAGE: Normal. No visible cartilage narrowing or focal defect. OTHER BONES: Normal proximal humerus, glenoid, and coracoid. OTHER OBSERVATIONS: Negative. No other significant findings or glenohumeral effusion. IMPRESSION: Moderate rotator cuff tendinopathy with no definite tear Type II SLAP lesion of the labrum Moderate acromioclavicular joint osteoarthritis with narrowing of the subacromial space Electronically authenticated by: MACKENZIE RITCHIE Date: 2022-09-12 19:53 Normal [facility] HISTORY PHYSICALon HISTORY PHYSICAL HNO ID: [id number] Author: Vijaya Pearce APRN.BENEFIT AUTHORIZER Service: ? Author Type: Nurse Practitioner Type: HANDP Filed: 09/06/2022 2:08 PM Note Text: LOCAL PROCEDURE HISTORY AND PHYSICAL EXAM SERVICE DATE: 09/06/2022 SERVICE TIME: 2:07 PM Provisional Diagnosis/Treatment Plan: Left wrist carpal tunnel Subjective HPI: This is a 52 year old female who presents with left wrist/hand pain and numbness Patient states she has had similar symptoms since she was 20. She states that she has had several EMGs that have said she had carpal tunnel. She states her last one was a few months ago and stated it was severe. I do not have access to those. She states that she has hand weakness and is dropping everything. She states that the numbness is keeping her awake. She has tried braces. She has never had injections but states she is not interested in them MEDICATIONS: Prior to Admission medications as of 09/06/22 1349 Medication Sig Last Dose Taking methocarbamol (ROBAXIN ORAL) Take 750 mg by mouth. mirtazapine (REMERON) 15 mg tablet Take 7.5 mg by mouth daily at bedtime. omega-3/dha/epa/dpa/fi sh oil (OMEGA-3 2100 ORAL) Take by mouth. ALPRAZolam (XANAX) 1 mg tablet Take 1 mg by mouth three times daily as needed. busPIRone HCl 30 mg tablet cholecalciferol, Vitamin D3, (VITAMIN D3) 1,250 mcg (50,000 unit) cap capsule One capsule q.month gabapentin (NEURONTIN) 800 mg tablet NIFEdipine XL (ADALAT CC) 60 mg 24 hr tablet promethazine (PHENERGAN) 25 mg tablet Take 25 mg by mouth. QUEtiapine (SEROQUEL) 100 mg tablet tiZANidine (ZANAFLEX) 4 mg tablet meclizine (ANTIVERT) 25 mg tab Take 25 mg by mouth three times daily as needed. ALLERGIES Allergen Reactions Acetaminophen-Caff-* Hives, Other: See Comments Fentanyl Other: See Comments Headache and nausea Hydrochlorothiazide Hives Midazolam Other: See Comments Headache and nausea Morphine Rash Objective PHYSICAL EXAM: The remainder of the physical exam is noncontributory. GENERAL: Alert, no distress, cooperative LUNGS: Lungs clear to auscultation, Good diaphragmatic excursion CARDIAC: Normal S1 and S2; no rubs, murmurs, or gallops BP 127/77 Pulse 95 Temp 36.2 ?C (97.1 ?F) (Temporal) Resp 14 LMP 07/15/2022 SpO2 100% PAIN ASSESSMENT: PAIN EVALUATION No data found in the last 1 encounters. Assessment/Plan Active Problems: Carpal tunnel syndrome of left wrist POA: Unknown Assessment AND Plan: Left wrist carpal tunnel release Resolved Problems: * No resolved hospital problems. * Medication and Non-Pharmacologic VTE Prophylaxis/Anticoagul ants VTE Prophylaxis: NA SIGNATURE: Vijaya Pearce APRN.CNP PATIENT NAME: Rupinder Miller DATE: September 06, 2022 TIME: 2:07 PM Normal [facility] OPERATIVE NOon 09-06-2022 OPERATIVE NO HNO ID: [id number] Author: Cooper Valle DO Service: Orthopaedic Surgery Author Type: Physician Type: Operative Report Filed: 09/06/2022 3:33 PM Note Text: OPERATIVE/PROCEDURE REPORT LOG ID: [id number] Surgery/Procedure Date: 09/06/2022 Incision/Procedure Start Time: 3:18 PM Incision Close/Procedure End Time: 3:27 PM Surgeon(s)/Procedurali st(s) and Wrapper Counter(s): Surgeon(s) and Role: * Cooper Valle DO - Primary Physician Wrapper Counter: Amanda Echeverria PA-C Procedure(s): Left Carpal Tunnel Release Anesthesia: Local Procedure Details: The patient was correctly identified in the preoperative holding area where she was explained the risks, benefits, complications, expectations, and alternatives to the above-listed procedure. The patient understood and wished to proceed with the surgical intervention. Therefore, under informed and written consent, the patient was taken from the preoperative holding area to the operative suite and placed on the operative table in supine position. A well-padded tourniquet was then applied to the patient's left upper extremity at this time. The patient's left upper extremity was then sterilely prepped and draped free in the usual standard surgical fashion. At this point, the patient's landmarks were palpated and the planned incision site was outlined with a sterile surgical marker centered over the carpal tunnel space at the palmar aspect of the left hand. Following this, local anesthetic consisting of 1% lidocaine without epinephrine was injected into the bran-incisional region and the deeper soft tissues. A sterile Esmarch was used to exsanguinate the left upper extremity and the tourniquet was inflated to 250 mmHg. Following this, a #15 blade scalpel was used to make a longitudinal skin incision centered over the carpal tunnel space. Weitlaner retractor was then positioned and the palmar fascia was then identified. The palmar fascia/flexor retinacular tissue was then incised longitudinally in line with the skin incision giving excellent visualization of the transverse carpal ligament. The Weitlaner retractor was then positioned deeper and the transverse carpal ligament was then released in a longitudinal fashion. Great care was taken not to injure the median nerve below the transverse carpal ligament during the release procedure. The complete release of the transverse carpal ligament was confirmed under both visual and digital inspection. The median nerve was then evaluated and found to be free of any pathological changes. There were no hourglass deformities and no hyperemic changes noted involving the nerve. At this point, the operative area was thoroughly irrigated and drained. The skin edges were then reapproximated using 4-0 nylon suture in interrupted horizontal mattress fashion by the physician liaison inspection laboratory assistant. The patient's left hand was then cleaned and dried at this point and the dressing was applied consisting of sterile bacitracin, sterile Adaptic, sterile 4 x 4s, followed by a sterile finger fluff dressing of Kerlix and soft roll. A short-arm volar Orthoglass splint was then fashioned and held in place with a compressive Sotero bandage dressing. The tourniquet was deflated at this time and removed from the left upper extremity. The patient was then transferred to the [facility], where she was taken to the recovery room in stable condition having tolerated this procedure well. Pre-Op/Pre-Procedure Diagnosis: Carpal tunnel syndrome of left wrist [G56.02] Post-Op/Post-Procedure Diagnosis: Left carpal tunnel syndrome Estimated Blood Loss: min Specimens: None Implantable Devices: None Drains: None Complications: None SIGNATURE: Cooper Valle DO PATIENT NAME: Rupinder Miller DATE: September 06, 2022 TIME: 3:32 PM PAGER/CONTACT #: Breana [facility] Maryuri 08-05-2022 [facility] Telephone (LOORRM) MILLERRUPINDER SERRANO ([id number]) 1970 F Date Time Provider Department 08/05/22 COOPER VALLE During your visit today, we recorded the following information about you: Heidipallavi Walker 08/05/2022 11:42 AM Signed Spoke to patient and scheduled surgery for left CTR with Dr. Valle for 09/06/22 under Local. Post op also scheduled. Allergies As of Date: 08/05/2022 Noted Allergy Reaction [id number] ILAMINE 11/29/2013 4 - Hives 14 - Other: See Comments FENTANYL 07/16/2017 14 - Other: See Comments Comments: Headache and nausea HYDROCHLOROTHIAZIDE 06/21/2022 4 - Hives MIDAZOLAM 07/16/2017 14 - Other: See Comments Comments: Headache and nausea MORPHINE 12/13/2013 2 - Rash Date Reviewed: 08/01/2022 Reviewed by: Alycia Stein MA - Fully Assessed Reason for Visit: Surgical Followup [104] Prescriptions as of 08/05/2022 - methocarbamol (ROBAXIN ORAL) Take 750 mg by mouth. - mirtazapine (REMERON) 15 mg tablet Take 7.5 mg by mouth daily at bedtime. - omega-3/dha/epa/dpa/fi sh oil (OMEGA-3 2100 ORAL) Take by mouth. - ALPRAZolam (XANAX) 1 mg tablet Take 1 mg by mouth three times daily as needed. - busPIRone HCl 30 mg tablet - cholecalciferol, Vitamin D3, (VITAMIN D3) 1,250 mcg (50,000 unit) cap capsule One capsule q.month - gabapentin (NEURONTIN) 800 mg tablet - NIFEdipine XL (ADALAT CC) 60 mg 24 hr tablet - promethazine (PHENERGAN) 25 mg tablet Take 25 mg by mouth. - QUEtiapine (SEROQUEL) 100 mg tablet - tiZANidine (ZANAFLEX) 4 mg tablet - meclizine (ANTIVERT) 25 mg tab Take 25 mg by mouth three times daily as needed. Problem List As Of Date 08/05/2022 Noted Resolved Dizziness [R42] 07/22/2018 Essential (primary) hypertension [I10] 11/23/2021 Fibromyalgia [M79.7] 04/30/2019 Hearing loss [H91.90] 01/06/2019 Meniere's disease [H81.09] 01/06/2019 Rash and other nonspecific skin eruption [R21] 04/16/2021 Tinnitus [H93.19] 07/22/2018 Carpal tunnel syndrome of right wrist [G56.01] 07/22/2022 Encounter Status:Closed by HEIDI WALKER on 08/05/22 [facility] 08-01-2022 CNOV Office Visit (ELÍAS ) RUPINDER MILLER ([id number]) 1970 F Date Time Provider Department 08/01/22 2:15 PM COOPER VALLE During your visit today, we recorded the following information about you: Cooper Valle DO 08/01/2022 3:16 PM Signed Rupinder Miller is a patient of Adeel Ceja MD. CHIEF COMPLAINT: Rupinder Miller is a 52 year old female who presents today for follow up of her right carpal tunnel release from last week. HISTORY OF PRESENT ILLNESS: Patient presents today just over a week follow-up on her right carpal tunnel release. She is also having carpal tunnel symptoms in the left hand and is interested in proceeding with a left surgery. She states that she still has the numbness and tingling in the right hand is not any better than it was prior to surgery. PAIN EVALUATION 08/01/2022 1454 Pain Level: 2 Pain Location: Hand-Right Description: Aching Duration Amount of Time: 10 Duration Units: Days Frequency: Intermittent Intervention/Comfort measure: Splinting;Medication ALLERGIES: ALLERGIES Allergen Reactions Acetaminophen-Caff-* Hives, Other: See Comments Fentanyl Other: See Comments Headache and nausea Hydrochlorothiazide Hives Midazolam Other: See Comments Headache and nausea Morphine Rash PAST MEDICAL HISTORY: No past medical history on file. SOCIAL HISTORY: Tobacco Use: Not on file PHYSICAL EXAMINATION: Patient's right palmar incision is healing well. No surrounding erythema. She still has decree sensation of the median nerve distribution in both hands. Cap refills within normal notes in all digits. CLINICAL IMPRESSION / ASSESSMENT: Right carpal tunnel syndrome status post right carpal tunnel release from just under 2 weeks ago Left carpal tunnel syndrome RECOMMENDATION / PLAN: I discussed the treatment options with the patient today at length. The patient is interested in proceeding with a left carpal tunnel release surgery. We will schedule this for the near future. As for the right hand her sutures were removed today without any complications. I advised her that it could take multiple weeks to months for the nerve to recover if it is going to recover following the surgery. Patient understands. Verbal health education was given to patient. Patient verbalizes understanding and agrees with the treatment plan as detailed above. Cooper Valle DO Referring Provider: SELF [200] Allergies As of Date: 08/01/2022 Noted Allergy Reaction [id number] ILAMINE 11/29/2013 4 - Hives 14 - Other: See Comments FENTANYL 07/16/2017 14 - Other: See Comments Comments: Headache and nausea HYDROCHLOROTHIAZIDE 06/21/2022 4 - Hives MIDAZOLAM 07/16/2017 14 - Other: See Comments Comments: Headache and nausea MORPHINE 12/13/2013 2 - Rash Date Reviewed: 08/01/2022 Reviewed by: Alycia Stein MA - Fully Assessed Reason for Visit: Post Op [174] Primary Visit Diagnosis:S/P carpal tunnel release [Z98.890] Other Visit Diagnosis:Left carpal tunnel syndrome [G56.02] Prescriptions as of 08/05/2022 - methocarbamol (ROBAXIN ORAL) Take 750 mg by mouth. - mirtazapine (REMERON) 15 mg tablet Take 7.5 mg by mouth daily at bedtime. - omega-3/dha/epa/dpa/fi sh oil (OMEGA-3 2100 ORAL) Take by mouth. - ALPRAZolam (XANAX) 1 mg tablet Take 1 mg by mouth three times daily as needed. - busPIRone HCl 30 mg tablet - cholecalciferol, Vitamin D3, (VITAMIN D3) 1,250 mcg (50,000 unit) cap capsule One capsule q.month - gabapentin (NEURONTIN) 800 mg tablet - NIFEdipine XL (ADALAT CC) 60 mg 24 hr tablet - promethazine (PHENERGAN) 25 mg tablet Take 25 mg by mouth. - QUEtiapine (SEROQUEL) 100 mg tablet - tiZANidine (ZANAFLEX) 4 mg tablet - meclizine (ANTIVERT) 25 mg tab Take 25 mg by mouth three times daily as needed. Problem List As Of Date 08/01/2022 Noted Resolved Dizziness [R42] 07/22/2018 Essential (primary) hypertension [I10] 11/23/2021 Fibromyalgia [M79.7] 04/30/2019 Hearing loss [H91.90] 01/06/2019 Meniere's disease [H81.09] 01/06/2019 Rash and other nonspecific skin eruption [R21] 04/16/2021 Tinnitus [H93.19] 07/22/2018 Carpal tunnel syndrome of right wrist [G56.01] 07/22/2022 Encounter Status:Closed by COOPER VALLE on 08/01/22 Normal [facility] XR LSPINE 2_3 VIEWSon 2021 XR LSPINE 2_3 VIEWS EXAM: XR LSPINE 2_3 VIEWS HISTORY: Back pain following fall COMPARISON: Lumbar spine x-rays 06/24/2017 TECHNIQUE: 3 views FINDINGS: Pelvic side bending to the left with a secondary mild levocurvature centered at L3. Maintenance of the normal lumbar lordosis.. Vertebral body heights and alignments exhibit no fracture or listhesis. Age-related intervertebral disc space narrowing, endplate and facet arthrosis. IMPRESSION: Pelvic side bending to the left with a secondary mild levocurvature centered at L3. Findings suggest muscle spasm. Electronically authenticated by: MACKENZIE LEIJA Date: 2022-07-30 22:42 Normal [facility] XR WRIST RT MIN 3 Von 2021 XR WRIST RT MIN 3 V EXAM: XR HAND RT MIN 3V, XR WRIST RT MIN 3 V HISTORY: Pain COMPARISON: None. TECHNIQUE: 3 views of the hand and 3 views of the wrist FINDINGS: No osseous lesion, fracture, dislocation or subluxation. Joint spaces are unremarkable for patient's age. No visualized effusion. No visualized soft tissue edema. IMPRESSION: Normal x-rays Electronically authenticated by: MACKENZIE LEIJA Date: 2022-07-30 22:03 Normal [facility] HISTORY PHYSICALon HISTORY PHYSICAL HNO ID: [id number] Author: Nery Elder APRN.BENEFIT AUTHORIZER Service: ? Author Type: Nurse Practitioner Type: HANDP Filed: 07/22/2022 12:22 PM Note Text: LOCAL PROCEDURE HISTORY AND PHYSICAL EXAM SERVICE DATE: 07/22/2022 SERVICE TIME: 12:22 PM Provisional Diagnosis/Treatment Plan: DECOMPRESSION NERVE MEDIAN CARPAL TUNNEL - Right Subjective HPI: This is a 52 year old female who presents with right hand numbness MEDICATIONS: Prior to Admission medications as of 07/16/22 1458 Medication Sig Last Dose Taking ALPRAZolam (XANAX) 1 mg tablet Take 1 mg by mouth three times daily as needed. busPIRone HCl 30 mg tablet cholecalciferol, Vitamin D3, (VITAMIN D3) 1,250 mcg (50,000 unit) cap capsule One capsule q.month gabapentin (NEURONTIN) 800 mg tablet NIFEdipine XL (ADALAT CC) 60 mg 24 hr tablet promethazine (PHENERGAN) 25 mg tablet Take 25 mg by mouth. QUEtiapine (SEROQUEL) 100 mg tablet tiZANidine (ZANAFLEX) 4 mg tablet meclizine (ANTIVERT) 25 mg tab Take 25 mg by mouth three times daily as needed. ALLERGIES Allergen Reactions Acetaminophen-Caff-* Hives, Other: See Comments Fentanyl Other: See Comments Headache and nausea Hydrochlorothiazide Hives Midazolam Other: See Comments Headache and nausea Morphine Rash Objective PHYSICAL EXAM: The remainder of the physical exam is noncontributory. LUNGS: Lungs clear to auscultation, Good diaphragmatic excursion CARDIAC: Normal S1 and S2; no rubs, murmurs, or gallops There were no vitals taken for this visit. PAIN ASSESSMENT: PAIN EVALUATION No data found in the last 1 encounters. Assessment/Plan Carpal tunnel syndrome of right wrist [G56.01] Medication and Non-Pharmacologic VTE Prophylaxis/Anticoagul ants VTE Prophylaxis: N/A SIGNATURE: Nery Elder APRN.CNP PATIENT NAME: Rupinder Miller DATE: July 22, 2022 TIME: 12:22 PM Normal [facility] OPERATIVE NOon 07-22-2022 OPERATIVE NO HNO ID: [id number] Author: Cooper Valle DO Service: Orthopaedic Surgery Author Type: Physician Type: Operative Report Filed: 07/22/2022 2:04 PM Note Text: OPERATIVE/PROCEDURE REPORT LOG ID: [id number] Surgery/Procedure Date: 07/22/2022 Incision/Procedure Start Time: 1:43 PM Incision Close/Procedure End Time: 1:58 PM Surgeon(s)/Procedurali st(s) and Wrapper Counter(s): Surgeon(s) and Role: * Cooper Valle DO - Primary Physician Wrapper Counter: Sean Harp PA-C Procedure(s): Right Carpal Tunnel Release Anesthesia: Local Procedure Details: The patient was correctly identified in the preoperative holding area where she was explained the risks, benefits, complications, expectations, and alternatives to the above-listed procedure. The patient understood and wished to proceed with the surgical intervention. Therefore, under informed and written consent, the patient was taken from the preoperative holding area to the operative suite and placed on the operative table in supine position. A well-padded tourniquet was then applied to the patient's right upper extremity at this time. The patient's right upper extremity was then sterilely prepped and draped free in the usual standard surgical fashion. At this point, the patient's landmarks were palpated and the planned incision site was outlined with a sterile surgical marker centered over the carpal tunnel space at the palmar aspect of the right hand. Following this, local anesthetic consisting of 1% lidocaine without epinephrine was injected into the bran-incisional region and the deeper soft tissues. A sterile Esmarch was used to exsanguinate the right upper extremity and the tourniquet was inflated to 250 mmHg. Following this, a #15 blade scalpel was used to make a longitudinal skin incision centered over the carpal tunnel space. Weitlaner retractor was then positioned and the palmar fascia was then identified. The palmar fascia/flexor retinacular tissue was then incised longitudinally in line with the skin incision giving excellent visualization of the transverse carpal ligament. The Weitlaner retractor was then positioned deeper and the transverse carpal ligament was then released in a longitudinal fashion. Great care was taken not to injure the median nerve below the transverse carpal ligament during the release procedure. The complete release of the transverse carpal ligament was confirmed under both visual and digital inspection. The median nerve was then evaluated and found to be free of any pathological changes. There were no hourglass deformities and no hyperemic changes noted involving the nerve. At this point, the operative area was thoroughly irrigated and drained. The skin edges were then reapproximated using 4-0 nylon suture in interrupted horizontal mattress fashion by the physician liaison inspection laboratory assistant. The patient's right hand was then cleaned and dried at this point and the dressing was applied consisting of sterile bacitracin, sterile Adaptic, sterile 4 x 4s, followed by a sterile finger fluff dressing of Kerlix and soft roll. A short-arm volar Orthoglass splint was then fashioned and held in place with a compressive Sotero bandage dressing. The tourniquet was deflated at this time and removed from the right upper extremity. The patient was then transferred to the [facility], where she was taken to the recovery room in stable condition having tolerated this procedure well. Pre-Op/Pre-Procedure Diagnosis: Carpal tunnel syndrome of right wrist [G56.01] Post-Op/Post-Procedure Diagnosis: Right carpal tunnel syndrome Estimated Blood Loss: min Specimens: None Implantable Devices: None Drains: None Complications: None SIGNATURE: Cooper Valle DO PATIENT NAME: Rupinder Miller DATE: July 22, 2022 TIME: 2:02 PM [facility]CONTA[facility] CNPN Telephone (TOMORRM) RUPINDER MILLER ([id number]) 1970 F Date Time Provider Department 07/17/22 COOPER VALLE During your visit today, we recorded the following information about you: Heidi Nuvia 07/17/2022 4:08 PM Signed Tried contacting patient to schedule surgery with Dr. Valle for right carpal tunnel release, and voice mailbox is full. Tired to send [employer] message, but it appears the patient doesn't have a [employer] account. Janessa Monroe 07/17/2022 5:01 PM Signed Patient is calling in regards to below. Please for surgery schedule. Please call patient two times in a row. She was not able to reach telephone in time. Please advise. Heidi Jonesnett 07/18/2022 11:37 AM Signed Spoke to patient and she is scheduled for surgery on 07/22/[address] Valle at [facility]. Post-op appt scheduled. Allergies As of Date: 07/17/2022 Noted Allergy Reaction [id number] ILAMINE 11/29/2013 4 - Hives 14 - Other: See Comments FENTANYL 07/16/2017 14 - Other: See Comments Comments: Headache and nausea HYDROCHLOROTHIAZIDE 06/21/2022 4 - Hives MIDAZOLAM 07/16/2017 14 - Other: See Comments Comments: Headache and nausea MORPHINE 12/13/2013 2 - Rash Date Reviewed: 07/16/2022 Reviewed by: Cooper Valle DO - Fully Assessed Reason for Visit: Surgical Followup [104] Patient Update [1234] Prescriptions as of 07/18/2022 - ALPRAZolam (XANAX) 1 mg tablet Take 1 mg by mouth three times daily as needed. - busPIRone HCl 30 mg tablet - cholecalciferol, Vitamin D3, (VITAMIN D3) 1,250 mcg (50,000 unit) cap capsule One capsule q.month - gabapentin (NEURONTIN) 800 mg tablet - NIFEdipine XL (ADALAT CC) 60 mg 24 hr tablet - promethazine (PHENERGAN) 25 mg tablet Take 25 mg by mouth. - QUEtiapine (SEROQUEL) 100 mg tablet - tiZANidine (ZANAFLEX) 4 mg tablet - meclizine (ANTIVERT) 25 mg tab Take 25 mg by mouth three times daily as needed. Problem List As Of Date 07/17/2022 Noted Resolved Dizziness [R42] 07/22/2018 Essential (primary) hypertension [I10] 11/23/2021 Fibromyalgia [M79.7] 04/30/2019 Hearing loss [H91.90] 01/06/2019 Meniere's disease [H81.09] 01/06/2019 Rash and other nonspecific skin eruption [R21] 04/16/2021 Tinnitus [H93.19] 07/22/2018 Encounter Status:Closed by HEIDI WALKER on 07/17/22 [facility] CNOVon 07-16-2022 CNOV Office Visit (ORAVON ) RUPINDER MILLER ([id number]) 1970 F Date Time Provider Department 07/16/22 2:45 PM COOPER VALLE During your visit today, we recorded the following information about you: Cooper Valle DO 07/16/2022 3:17 PM Signed Rupinder Miller is here today at request of KAUSHIK Perdomo specifically for consultation of my opinion in regards to the chief complaint listed below. Correspondence will be shared today via the [employer] electronic health record or through regular mail, where applicable. CHIEF COMPLAINT: Rupinder Miller is a 52 year old female who presents today for new evaluation of bilateral carpal tunnel syndrome. HISTORY OF PRESENT ILLNESS: Ms. Miller is a 52-year-old wajmf-xgcf-lvhdqihe female presents today for evaluation of bilateral hand pain and numbness. States that the symptoms since she was a teenager. She is tried braces at nighttime which did not help. She has complete numbness in the thumb index middle and ring fingers of both hands. She had major nerve test performed recently which suggested moderate bilateral carpal tunnel syndrome. The symptoms significantly interfere with her daily activities and overall quality of life. She is dropping things frequently PAIN EVALUATION 07/16/2022 1448 Pain Level: 8 Pain Location: -- BILATERAL HAND Description: Numbness;Aching Duration Amount of Time: -- SEVERAL YEARS Duration Units: Years Frequency: Continuous Intervention/Comfort measure: Other: See comment;Medication Comments: IBUPROFEN ROS: REVIEW OF SYMPTOMS: Constitutional: patient denies any recent fever or significant change in weight Gastrointestinal: patient denies any current abdominal discomfort Musculoskeletal: as noted in the HPI Neurologic: as noted in the HPI SOCIAL HISTORY: Tobacco Use: Not on file ALLERGIES: ALLERGIES Allergen Reactions Acetaminophen-Caff-* Hives, Other: See Comments Fentanyl Other: See Comments Headache and nausea Hydrochlorothiazide Hives Midazolam Other: See Comments Headache and nausea Morphine Rash PAST MEDICAL HISTORY: No past medical history on file. SOCIAL HISTORY: Tobacco Use: Not on file PHYSICAL EXAMINATION: IMAGING: X-rays of patient's hands previously taken reveal no fractures or dislocations. No significant osseous or articular abnormalities. EMG nerve studies from an outside facility were interpreted by the neurologist doing the procedure as moderate bilateral carpal tunnel syndrome CLINICAL IMPRESSION / ASSESSMENT: Moderate bilateral carpal tunnel syndrome RECOMMENDATION / PLAN: I discussed the treatment options with the patient today at length. My recommendation is a right carpal tunnel release surgery. I explained the risks, benefits, complications, expectations, alternatives to right carpal tunnel release with the patient today at length. We will schedule this for the near future. Verbal health education was given to patient. Patient verbalizes understanding and agrees with the treatment plan as detailed above. Cooper Valle DO Referring Provider: AMANDA ESTRELLA [[id number]] Allergies As of Date: 07/16/2022 Noted Allergy Reaction [id number] ILAMINE 11/29/2013 4 - Hives 14 - Other: See Comments FENTANYL 07/16/2017 14 - Other: See Comments Comments: Headache and nausea HYDROCHLOROTHIAZIDE 06/21/2022 4 - Hives MIDAZOLAM 07/16/2017 14 - Other: See Comments Comments: Headache and nausea MORPHINE 12/13/2013 2 - Rash Date Reviewed: 07/16/2022 Reviewed by: Cooper Valle DO - Fully Assessed Reason for Visit: New [[id number]] New [[id number]] Primary Visit Diagnosis:Right carpal tunnel syndrome [G56.01] Other Visit Diagnosis:Left carpal tunnel syndrome [G56.02] Prescriptions as of 07/16/2022 - ALPRAZolam (XANAX) 1 mg tablet Take 1 mg by mouth three times daily as needed. - busPIRone HCl 30 mg tablet - cholecalciferol, Vitamin D3, (VITAMIN D3) 1,250 mcg (50,000 unit) cap capsule One capsule q.month - gabapentin (NEURONTIN) 800 mg tablet - NIFEdipine XL (ADALAT CC) 60 mg 24 hr tablet - promethazine (PHENERGAN) 25 mg tablet Take 25 mg by mouth. - QUEtiapine (SEROQUEL) 100 mg tablet - tiZANidine (ZANAFLEX) 4 mg tablet - meclizine (ANTIVERT) 25 mg tab Take 25 mg by mouth three times daily as needed. Problem List As Of Date 07/16/2022 Noted Resolved Dizziness [R42] 07/22/2018 Essential (primary) hypertension [I10] 11/23/2021 Fibromyalgia [M79.7] 04/30/2019 Hearing loss [H91.90] 01/06/2019 Meniere's disease [H81.09] 01/06/2019 Rash and other nonspecific skin eruption [R21] 04/16/2021 Tinnitus [H93.19] 07/22/2018 Encounter Status:Closed by COOPER VALLE on 07/16/22 [facility] CNOVon 06-21-2022 CNOV Office Visit (ORAVON ) RUPINDER MILLER ([id number]) 1970 F Date Time Provider Department 06/21/22 2:50 PM JOANIE ESCOTO During your visit today, we recorded the following information about you: Weight Height 59 kg 1.651 m Joanie Escoto PA-C 06/21/2022 3:57 PM Signed HAND SURGERY NEW PATIENT / NEW PROBLEM NOTE Patient Name: Rupinder Miller Date of Evaluation: 06/21/2022 HISTORY and CHIEF COMPLAINT: 52 year old year old R hand dominant female house here for bilateral hand pain and numbness. Patient states she has had similar symptoms since she was 20. She states that she has had several EMGs that have said she had carpal tunnel. She states her last one was a few months ago and stated it was severe. I do not have access to those. She states that she has hand weakness and is dropping everything. She states that the numbness is keeping her awake. She has tried braces. She has never had injections but states she is not interested in them. She would like to be referred to a surgeon. The patient is sent for evaluation and an opinion regarding treatment by Amanda Estrella, who will receive a copy of this report by mail or through the shared medical record. PAST MEDICAL HISTORY: HTN, DDD, Anxiety, Bipolar, MEDICATIONS: cholecalciferol, Vitamin D3, (VITAMIN D3) 1,250 mcg (50,000 unit) cap capsule One capsule q.month ALPRAZolam (XANAX) 1 mg tablet Take 1 mg by mouth three times daily as needed. busPIRone HCl 30 mg tablet gabapentin (NEURONTIN) 800 mg tablet NIFEdipine XL (ADALAT CC) 60 mg 24 hr tablet promethazine (PHENERGAN) 25 mg tablet Take 25 mg by mouth. QUEtiapine (SEROQUEL) 100 mg tablet tiZANidine (ZANAFLEX) 4 mg tablet meclizine (ANTIVERT) 25 mg tab Take 25 mg by mouth three times daily as needed. PAST SURGICAL HISTORY: x 3 , tubaligation ALLERGIES: Pbxppmwtwiuiu-Tzrx-Cnk ilamine, Fentanyl, Hydrochlorothiazide, Midazolam, and Morphine PRIMARY CARE PROVIDER: dAeel Ceja MD PHYSICAL EXAMINATION: Ms. Miller is a 52 year old female. Examination of the upper extremity shows full motion of the shoulders, elbows, wrists, and hands. There is no triggering or tenderness of any of the A1 pulleys. There is no tenderness either basal joint. There is no pain with passive thumb extension or the CMC grind maneuver. There is no flexor or extensor tenosynovitis. There is no warmth, redness, drainage or other sign of infection. APB and first dorsal interosseous strength and bulk are normal. EPL and FPL strength are normal. There are no Tinel's in the upper extremities Carpal tunnel compression test and Phalen's test are negative Extensor tendon function is intact, including EIP, EDC, EDQ, and EPL. IMAGING: Imaging done today showsRings in place limiting the evaluation of the right second and third digits. There is no acute fracture or dislocation. There is a focus of ossification adjacent to the right ulnar styloid process, most likely related to remote injury. There are degenerative changes at the bilateral STT, first CMC, first MCP and first digit IP joints and left distal radioulnar joint. There is no soft tissue swelling. LABORATORY STUDIES: No results for input(s): HB, WBC, PLT, WSR, CRP, CCPABG, RF, INR, CREATININE, ALB, PROT, URICACID, HBA1C, VITD25 in the last [id number] hours. ASSESSMENT: Bilateral hand numbness (primary encounter diagnosis) PLAN: We discussed different surgical and conservative treatment options and reviewed the risks and benefits of surgery. He understands that the risks include, but are not limited to, bleeding, infection, stiffness, neurovascular injury, and a relatively high risk of recurrence. He understands all operations can make her better worse or unchanged and would like to follow a surgical course at this time Referring Provider: AMANDA ESTRELLA [[id number]] Allergies As of Date: 06/21/2022 Noted Allergy Reaction [id number] ILAMINE 11/29/2013 4 - Hives 14 - Other: See Comments FENTANYL 07/16/2017 14 - Other: See Comments Comments: Headache and nausea HYDROCHLOROTHIAZIDE 06/21/2022 4 - Hives MIDAZOLAM 07/16/2017 14 - Other: See Comments Comments: Headache and nausea MORPHINE 12/13/2013 2 - Rash Date Reviewed: 06/21/2022 Reviewed by: Madhu Terrazas MA - Fully Assessed Reason for Visit: New [[id number]] New [[id number]] Primary Visit Diagnosis:Bilateral hand numbness [R20.0] Prescriptions as of 06/21/2022 - ALPRAZolam (XANAX) 1 mg tablet Take 1 mg by mouth three times daily as needed. - busPIRone HCl 30 mg tablet - cholecalciferol, Vitamin D3, (VITAMIN D3) 1,250 mcg (50,000 unit) cap capsule One capsule q.month - gabapentin (NEURONTIN) 800 mg tablet - NIFEdipine XL (ADALAT CC) 60 mg 24 hr tablet - promethazine (PHENERGAN) 25 mg tablet Take 25 mg by mouth. - QUEtia (more content not included)... Normal [facility] XR HAND 3V PA/LAT/OBL BILon 06-21-2022 XR HAND 3V PA/LAT/OBL LAN * * *Final Report* * * DATE OF EXAM: Jun 21 2022 2:23PM AFR [id number] - XR HAND 3V PA/LAT/OBL LAN / PROCEDURE REASON: Pain * * * * Physician Interpretation * * * * HISTORY: Pain . TECHNIQUE: XR HAND 3V PA/LAT/OBL LAN Laterality: BILATERAL Number of different views (projections): 3 EACH COMPARISON: None available. RESULT: Rings in place limiting the evaluation of the right second and third digits. There is no acute fracture or dislocation. There is a focus of ossification adjacent to the right ulnar styloid process, most likely related to remote injury. There are degenerative changes at the bilateral STT, first CMC, first MCP and first digit IP joints and left distal radioulnar joint. There is no soft tissue swelling. No other significant abnormality. - IMPRESSION: Degenerative changes. Renewal Specialist: PSCB Transcribe Date/Time: Jun 21 2022 3:20P Dictated by : SABA SAUCEDA MD This examination was interpreted and the report reviewed and electronically signed by: SABA SAUCEDA MD on Jun 21 2022 3:22PM EST [id number] Normal [facility] XR HAND GENERAL 3V PA/LAT/OB L BILATERALon 06-21-2022 [facility] Surgical Pathology Depar tmenton 05-27-[address] [facility] Surgical Pathology Department Name RUPINDER MILLER Pathologist: SUSY CASTILLO DMD Date of Procedure: 05/27/2022 Date Received: 05/27/2022 Date Reported 06/03/2022 Submitting Physician: EMI IGNACIO DDS Location: [facility] Copy To/Referring/Attending : UNKNOWN,DOCTOR Other External # FINAL DIAGNOSIS A. BUCCAL ATTACHED GINGIVA BETWEEN TEETH #8-9, BIOPSY: -- GIANT CELL FIBROMA ICD-10: D10.39 Electronically Signed Out By SUSY CASTILLO DMD/LISANDRA By the signature on this report, the individual or group listed as making the Final Interpretation/Diagnos is certifies that they have reviewed this case. Diagnostic interpretation performed at [address] [place] [id number] Microscopic Description: The nodule consists of a proliferation of delicately to more densely collagenous fibrovascular tissue, notable for the presence of stellate shaped and occasionally multinucleated fibroblasts within connective tissue papillae. The overlying epithelium is thinly keratinized, with some surface bosselation, and undergoes the usual pattern of maturation. Occasional rete ridges are spiky and confluent at the tips. Clinical History: The lesion was biopsied from the buccal gingiva between teeth #8-9 where it measures 0.6 x 0.6 cm, is pink, and has been present for months. Clinical impression: Ossifying fibroma. Specimens Submitted As: A: BUCCAL GINGIVA BETWEEN TEETH #8,9 Gross Description: Received in formalin, labeled with the patient's name and hospital number, is a portion of mucosal covered soft tissue measuring 0.9 x 0.8 x 0.3 cm. The resection margin is inked. The specimen is bisected and entirely submitted in one cassette. RCC rcc/05/28/2022 [facility] Department of Pathology [address] [place] [address] Normal [facility] Comment on above: Performed By: #### [facility] #### [facility] Surgical Pathology Department [address] [place] [address] Vital Signs Date Time Vital Sign Value Performing Clinician Facility 08-07-2023 11:46-0400 Body height 165.1 cm Referring Provider Unknown FK-Jayqbyntbebu-Kwsso [facility] [place] Work Phone: 08-07-2023 11:46-0400 Body mass index (BMI) [Ratio] 23.3 kg/m2 Referring Provider Unknown LK-Nwwkeqlosskv-Cpnfu [facility] Work Phone: 08-07-2023 11:46-0400 Body surface area Derived from formula 1.7 m2 Referring Provider Unknown HM-Pxfzblrvjldv-Ewpeh [facility] Work Phone: 08-07-2023 11:46-0400 Body weight 63.5 kg Referring Provider Unknown LX-Qresjqtjiyhi-Mkkke [facility] Work Phone: 08-07-2023 11:46-0400 Diastolic blood pressure 74 mm[Hg] Referring Provider Unknown AQ-Wpbehsyavedf-Aiuwn [facility] Work Phone: 08-07-2023 11:46-0400 Heart rate 86 /min Referring Provider Unknown AY-Tkoumkkaepsb-Tmtct [facility] Work Phone: 08-07-2023 11:46-0400 Respiratory rate 18 /min Referring Provider Unknown YC-Blcrbmnblaxz-Arbes [facility] Work Phone: 08-07-2023 11:46-0400 Systolic blood pressure 109 mm[Hg] Referring Provider Unknown BC-Dvmkqlngisrg-Yhiws [facility] Work Phone: 12-10-2022 13:48-0500 Diastolic blood pressure 69 mm[Hg] Meliton Garcia [facility] 12-10-2022 13:48-0500 Heart rate 93 /min Meliton Garcia [facility] 12-10-2022 13:48-0500 Mean blood pressure 83 mm[Hg] Meliton Garcia [facility] 12-10-2022 13:48-0500 Respiratory rate 18 /min Meliton Garcia [facility] 12-10-2022 13:48-0500 Systolic blood pressure 111 mm[Hg] Meliton Garcia [facility] 11-14-2022 14:20-0500 Body height 165.1 cm Tommy Segundo Other [facility] Other 11-14-2022 14:20-0500 Body mass index (BMI) [Ratio] 23.29 kg/m2 Tommy Ratna Other [facility] Other 11-14-2022 14:20-0500 Body weight 63.5 kg Tommy Segundo Other [facility] Other 09-16-2022 14:59-0500 Body height 165.1 cm Umm Mercedes MD Work Phone: [facility] 09-16-2022 14:59-0500 Body weight 62.6 kg Umm Mercedes MD Work Phone: [facility] 09-16-2022 14:59-0500 Diastolic blood pressure 87 mm[Hg] Umm Mercedes MD Work Phone: [facility] 09-16-2022 14:59-0500 Heart rate 99 /min Umm Mercedes MD Work Phone: [facility] 09-16-2022 14:59-0500 Systolic blood pressure 140 mm[Hg] Umm Mercedes MD Work Phone: [facility] 06-21-2022 14:38-0400 Body height 165.1 cm Joanie Stills PA-C Work Phone: [facility] 06-21-2022 14:38-0400 Body weight 58.97 kg Joanie Stills PA-C Work Phone: [facility] Encounters Encounter Date Encounter Type Care Provider Facility Start: 12-17-2023 Oliver Leal Work Phone: [facility] Comment on above: Generalized anxiety disorder (CMS/HCC) Start: 12-16-2023 Refill Adeel Leal Work Phone: [facility] Comment on above: Generalized anxiety disorder (CMS/HCC) Start: 10-09-2023 ambulatory Mart Tobin acility:[facility] Start: 08-07-2023 Tobacco use cessatio n intermediate 3-10 minutes Referring Provider Unknown HM-Vqjqwrbzeitb-Ixqrq [facility] Work Phone: Start: 08-07-2023 ambulatory PCP UNKNOWN Facility:[id number] Start: 06-12-2023 End: 06-12-2023 ambulatory Adeel Ceja Facility:[facility] Start: 06-12-2023 End: 06-12-2023 ambulatory MD Adeel Ceja Work Phone: [facility] Work Phone: Start: 06-12-2023 End: 06-12-2023 Discharged Recurring MD Adeel Ceja Work Phone: [facility] [place] Work Phone: Start: 03-27-2023 Registered Recurring MD Adeel ventura Work Phone: [facility] Start: 03-21-2023 End: 03-21-[address] AIDA LARSEN . Facility:[facility] Start: 03-21-2023 End: 03-22-2023 ambulatory PEARL NOYOLA . Facility:[facility] Start: 02-13-2023 End: 02-14-[address] ADEEL CEJA Facility:[facility] Start: 02-12-2023 Telephone encounter Ciara tripp MD Work Phone: Rheumatology Comment on above: Insurance Authorizat ion (thoracic MRI) Start: 02-04-2023 Telephone encounter Ciara tripp MD Work Phone: Rheumatology Comment on above: Orders Start: 02-03-2023 Telephone encounter Ciara tripp MD Work Phone: Rheumatology Comment on above: Results Start: 01-30-2023 End: 01-31-2023 ambulatory CIARA THAKUR Facility:[facility] Start: 12-24-2022 End: 12-24-[address] ADEEL CEJA Facility:[facility] Start: 12-10-2022 End: 12-11-2022 ambulatory MD Tommy Segundo Facility:[facility] Start: 12-10-2022 End: 12-10-2022 Patient encounter procedure Meliton [place] Garcia [facility] Start: 12-05-2022 End: 12-07-[address] ADEEL CEJA Facility:[facility] Start: 11-14-2022 End: 11-14-2022 ambulatory Tommy Segundo Other [facility] Other Start: 11-14-2022 Office outpatient ne w 30 minutes Tommy Segundo [facility] Neurosurgery Start: 11-14-2022 Encounter for genera l adult medical examination without abnormal findings DR ADEEL CEJA [facility] Start: 11-08-2022 End: 11-08-2022 ambulatory MD Adeel Ceja Work Phone: [facility] Work Phone: Start: 11-08-2022 End: 11-08-2022 Patient encounter procedure MD Adeel Ceja Work Phone: [facility] Work Phone: Start: 11-07-2022 End: 11-08-[address] ADEEL CEJA Facility:[facility] Start: 11-07-2022 End: 11-08-2022 Encounter for general adult medical examination without abnormal findings DR ADEEL CEJA Facility:[facility] Start: 10-15-2022 End: 10-16-[address] ADEEL CEJA Facility:[facility] Start: 09-26-2022 End: 09-26-2022 ambulatory COOPER VALLE [facility] [facility] Start: 09-26-2022 End: 09-26-2022 Patient encounter procedure Cooper Valle DO Work Phone: Orthopaedics Comment on above: Impingement syndrome of left shoulder (Primary Dx) Start: 09-26-2022 End: 09-26-2022 Subsequent hospital visit by physician [facility] General Radiology Comment on above: Left shoulder pain, unspecified chronicity [M25.512] Start: 09-19-2022 End: 09-19-2022 ambulatory AMANDA ECHEVERRIA Facility:[facility] Start: 09-19-2022 End: 09-19-2022 Patient encounter procedure Amanda Echeverria PA-C Work Phone: Orthopaedics Comment on above: Post-operative state (Primary Dx); S/P carpal tunnel release Start: 09-17-2022 Orders Only Cooper Valle DO Work Phone: Orthopaedics Comment on above: Left shoulder pain, unspecified chronicity (Primary Dx) Start: 09-16-2022 End: 09-16-[address] ADEEL CEJA Facility:[facility] Start: 09-16-2022 End: 09-16-2022 ambulatory UMM MERCEDES Facility:[facility] Start: 09-16-2022 End: 09-16-2022 Patient encounter procedure Umm Mercedes MD Work Phone: Pain Management Comment on above: Acute pain of left s wojciech (Primary Dx) Start: 09-12-2022 End: 09-13-[address] ADEEL CEJA Facility:[facility] Start: 09-06-2022 End: 09-06-2022 ambulatory COOPER VALLE Facility:[facility] Start: 08-19-2022 End: 08-20-2022 ambulatory CAITLIN DAVALOS . Facility:[facility] Start: 08-05-2022 ambulatory Cooper Valle DO Work Phone: Orthopaedics Start: 08-05-2022 Telephone encounter Cooper clark DO Work Phone: Orthopaedics Comment on above: Surgical Followup Start: 08-01-2022 End: 08-01-2022 ambulatory COOPER VALLE Facility:[facility] Start: 08-01-2022 End: 08-01-2022 Patient encounter procedure Cooper Suárez Nicola DO Work Phone: Orthopaedics Comment on above: S/P carpal tunnel re lease (Primary Dx); Left carpal tunnel syndrome Start: 07-30-2022 End: 07-31-2022 ambulatory DERRICK FRYE Facility: Start: 07-22-2022 End: 07-22-2022 ambulatory COOPER VALLE Facility:[facility] Start: 07-18-2022 ambulatory Cooper Jose Armando Valle DO Work Phone: Orthopaedics Start: 07-17-2022 Telephone encounter Cooper clark DO Work Phone: Orthopaedics Comment on above: Surgical Followup; P atient Update Start: 07-16-2022 End: 07-16-2022 ambulatory COOPER VALLE Facility:[facility] Start: 07-16-2022 End: 07-16-2022 Patient encounter procedure Cooper Jose Armando Nicola DO Work Phone: Orthopaedics Comment on above: Right carpal tunnel syndrome (Primary Dx); Left carpal tunnel syndrome Start: 06-21-2022 End: 06-21-2022 ambulatory JOANIE ESCOTO Facility:[facility] Start: 06-21-2022 End: 06-21-2022 Patient encounter procedure Joanie Escoto PA-C Work Phone: Orthopaedics Comment on above: Bilateral hand numbn ess (Primary Dx) Start: 06-21-2022 End: 06-21-2022 Subsequent hospital visit by physician [facility] Work Phone: Radiology Comment on above: hand Procedures Date Procedure Procedure Detail Performing Clinician Start: 11-08-2022 X-ray of cervical spine MD Adeel Ceja Work Phone: Start: 09-26-2022 Radex shoulder compl ete minimum 2 views Cooper Valle DO Work Phone: Start: 06-21-2022 Radex hand minimum 3 views Joanie Griffiths PA-C Work Phone: section Meliton Gallegosrichie re Comment on above: 2010 2003 1989 section Referring P rovider Unknown Decompression of med hugo nerve Meliton Garcia Comment on above: 2021 History of decompres rodríguez of median nerve S/P carpal tunnel release Cooper Valle DO Work Phone: History of decompres rodríguez of median nerve S/P carpal tunnel release Amanda Echeverria PA-C Work Phone: Ligation of fallopia n tube Referring Provider Unknown Lithotripsy Meliton Garcia Comment on above: 2018 Plan of Treatment Date Care Activity Detail Author Start: 01-31-2024 BP CONTROLLED (<130/80) BP CONTROLLE D (<130/80) [facility] Start: 07-11-2023 Covid-19 Vaccine () Covid-19 Vaccine () [facility] Start: 07-11-2023 Influenza vaccination [facility] Start: 11-10-2022 [facility] Start: 07-11-2022 Influenza vaccination INFLUENZA (#1) [facility] Start: 02-21-2022 Influenza vaccination LUNG CANCER SC REENING [facility] Start: 02-21-2022 SHINGRIX VACCINE (1 of 2) SHINGRIX VACCINE (1 of 2) [facility] Start: 01-04-2022 COVID-19 VACCINE (3 - Booster for Pfizer series) COVID-19 VACCINE (3 - Booster for Pfizer series) [facility] Start: 11-10-2021 DEPRESSION ASSESSMENT DEPRESSION ASS ESSMENT [facility] Start: 09-29-2021 COVID-19 VACCINE (3 - Booster for Pfizer series) COVID-19 VACCINE (3 - Booster for Pfizer series) [facility] Start: 02-21-2017 COLOGUARD (FIT-DNA) COLOGUARD (FIT-D NA) [facility] Start: 02-21-2017 Colonoscopy COLONOSCOPY [facility] Start: 02-21-2017 COLORECTAL CANCER SCREENING COLORECTAL CANCER SCREENING [facility] Start: 02-21-[address] COLONOGRAPHY [facility] Start: 02-21-2017 DIABETES SCREEN DIABETES SCREEN [facility] Start: 02-21-2017 Diabetes Screening Diabetes Screenin g [facility] Start: 02-21-2017 FECAL OCCULT BLOOD FECAL OCCULT BLOO D [facility] Start: 02-21-2017 Lipid 1996 panel - S ashley or Plasma Lipid Screening [facility] Start: 02-21-2017 LIPID SCREEN LIPID SCREEN [facility] Start: 02-21-2017 SIGMOIDOSCOPY SIGMOIDOSCOPY [facility] Start: 2012 Mammography [facility] Start: 2012 Screening for malign ant neoplasm of breast Mammogram [facility] Start: 02-21-2002 HPV TESTING HPV TESTING [facility] Start: 02-21-2002 Screening for malign ant neoplasm of cervix [facility] Start: 02-21-1993 PAP TESTING PAP TESTING [facility] Start: 02-21-1993 Screening for malign ant neoplasm of cervix Pap Smear [facility] Start: 02-21-1991 Urine microalbumin profile [facility] Start: 02-21-1990 ANNUAL PCP TEAM STRAIGHTENER SEAN DISEASE VISIT ANNUAL PCP TEAM CHRONIC DISEASE VISIT [facility] Start: 02-21-1990 BP CONTROLLED (<130/80) BP CONTROLLE D (<130/80) [facility] Start: 02-21-1990 HEPATITIS C SCREENING HEPATITIS C SC REENING [facility] Start: 02-21-1990 HIV SCREENING HIV SCREENING [facility] Start: 1984 Adult depression screening assessment DEPRESSION SCREENING [facility] Start: 1972 HEPATITIS B (1 of 3 - 3-dose series) HEPATITIS B (1 of 3 - 3-dose series) [facility] Start: 1972 Hepatitis B Vaccine (1 of 3 - 3-dose series) Hepatitis B Vaccine (1 of 3 - 3-dose series) [facility] Start: 1972 Screening for malign ant neoplasm of colon [facility] End: 10-17-2023 XR SHOULDER GENERAL 3V OR MORE AP/TRUE AP/OTHER LEFT XR SHOULDER GENERAL 3V OR MORE AP/TRUE AP/OTHER LEFT Radiology Routine Left shoulder pain, unspecified chronicity 1 Occurrences starting 09/18/2022 until 10/17/2023 [facility] Work Phone: Comment on above: 1 Occurrences starti ng 09/18/2022 until 10/17/2023 [facility] Payers Date Payer Category Payer Self-pay [id number] 2003 Medicaid [id number] 1972 Unknown [id number] 1972 Unknown [id number] 1972 Unknown [id number] 1972 Unknown [id number] 1972 Unknown [id number] [id number] 1972 Unknown [id number] [id number] 1972 Unknown [id number] [id number] 1972 Unknown [id number] [id number] 1972 Unknown [id number] [id number] 1972 Unknown [id number] [id number] 1972 Unknown [id number] [id number] 1972 Unknown [id number] [id number] 1972 Unknown [id number] [id number] 1959 Medicaid [id number] Unknown [employer]BEK[employer] Unknown [id number] Unknown [id number] Social History Date Type Detail Facility Tobacco smoking stat [facility] Tobacco smoking consumption unknown [facility] Work Phone: Start: 1970 Sex Assigned At Not on file [facility] Start: 07-12-2022 End: 09-06-2022 Exposure to SARS-CoV-2 (event) Not sure [facility] Start: 1970 Sex Assigned At Female [facility] Tobacco smoking status No Smokin g Status Entered [facility] Start: 06-21-2022 Sex Assigned At Female F [facility] Start: 01-30-2023 Tobacco smoking stat [facility] Ex-smoker [facility] End: 11-10-2022 History of tobacco use Current smoker [facility] End: 11-10-2022 History of tobacco use Cigarette Smoker [facility] Start: 06-21-2022 End: 01-30-2023 Cigarettes smoked current (pack per day) - Reported 1 [facility] Start: 01-30-2023 Tobacco use and exposure Smokeless tobacco non-user [facility] Start: 01-30-2023 Alcohol intake Ex-drinker (finding) [facility] National Score (1-10 0), lower number is lower risk 60 [facility] Start: 09-08-2022 Gender identity Identifies as female gender (finding) [facility] Start: 09-08-2022 Sexual orientation Heterosexual (fin ding) [facility] Functional Status Date Assessment Result Facility 12-10-2022 Functional Status N/A [facility] Clinical Notes 06-21-2022 to 02-13-2023 Telephone Encounter - Jono Bowie MA - 02/13/2023 8:34 AM EDTTelephone Encounter - Ciara Thakur MD - 02/12/2023 3:36 PM EDT Note Date & Type Note Facility 02-13-2023 Miscellaneous Notes Spoke to pt aware of recommendations. Notify patient of MRI denial May start PT per insurance request Order signed. May send if needed outside [facility]. Thank you. Rebekah faxes denial of of MRI. Plan requires documentation that patient completed 6 week of back exercises-PT, chiropractic treatments or medically-directed home exercise program. and number of visits completed. Fax placed on you desk for review. documented in this encounter [facility] 02-04-2023 Miscellaneous Notes Orders faxed as requested. Pt notified Patient calling requesting her MRI Thoracic Spine WO [place] order to be faxed to [facility]. Patient would like to have this done at their facility. [facility]: Please advise. documented in this encounter [facility] 02-04-2023 Miscellaneous Notes Spoke to pt aware of results and recommendations. Please Call patient if MyChart note not read to review results/released to My Chart if tests completed at [facility]: normal labs and no inflammation. Continue same daily vitamin D with food. Negative testing for autoimmune/rheumatological diseases such as rheumatoid arthritis/lupus/etc. Negative lyme test. Happy to further review and discuss at follow up visit. Continue rest of treatment plan per instructions at last office visit. Thank you. 02/03/23 normal esr 8,crp 0.4, vitamin D 42.4, vitamin b12-971, uric acid 5.2;negative rf<10, ccp<15, larry ifa, hla b27, quantiferon tb, lyme IGG/IGM, hepatitis panel except equivocal +hepB surface AB Hep B Surface Ab, Qual Positive Equivocal Abnormal Comment: Indeterminate result. In patients who were vaccinated 6-8 weeks prior to this draw or previously infected with HBV, a repeat testing is suggested. Those who were vaccinated for Hepatitis B virus years ago, may fall into this category due to waning immunity over time. Clinical correlation is required. Hep B Surface Ab Quant >=12.00 mIU/mL 11.91 Low documented in this encounter [facility] 01-30-2023 Note HNO ID: [id number] Author: Ciara Thakur MD Service: ? Author Type: Physician Type: Progress Notes Filed: 01/30/2023 4:32 PM Note Text: NEW CONSULT:RHEUMATOLOGY SERVICE SERVICE DATE: 01/30/2023 SERVICE TIME: 2:16 PM REASON FOR CONSULT: joint pain REQUESTING PHYSICIAN: Adeel Ceja MD ([facility]) [address] [facility] [address] PRIMARY CARE PHYSICIAN: Adeel Ceja MD Patient's Name: Rupinder Miller 1970 [id number] [address] Accompanied by: self This consult was requested for my medical opinion regarding the rheumatologic evaluation of the patient's joint pain problems, and my final recommendations will be communicated to the requesting health care provider by way of the shared medical record for internal providers or letter via the [employer] for external providers. January 30, 2023 SUBJECTIVE Ms. Miller is a 52 year old female who presents for joint pain eval. Exposed to ticks when in [place], moved to [place] 2007 20years ago pain started neck, entire spine 2007 L>R shoulders, legs, hips, knees, medial elbows 2018 disc bulges in entire spine, sclerotic lesions, [place] Sees neurology, normal brain MRI, no MS Had EMG 2021 found b/l carpal tunnel syndrome 07/2022 and 08/2022 Less forearm pain, but pain when placing palms downward skin changes on palms/small of back/behind ears x 10years Dizzy has meniere's disease Toes go numb fingertips turn white/blue when cold Tried shoulder steroid injection 08/2022 developed SLAP 2 tear per MRI per primary care provider Not interested in surgery due ot hih stress caring for children, ill family member Worked in [employer], nurse's aide, 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 No adverse effects with meds. No other complaints. Patient denies fever, chills, cp, dyspnea, nausea, vomiting, night sweats, scalp tenderness, visual changes, gentile, bowel/bladder changes, weight changes or other complaints. COMPLETE REVIEW OF SYSTEMS: RHEUM. ROS: Joint pain: yes neck/entire spine, L>R shoulders, legs, hips, knees, medial elbows Joint swelling: no Am stiffness: yes Low back pain: yes Dactylitis: no H/o precedent/frequent infection(s): strept few weeks ago from daughter Enthesopathy/Lloyd's/heel/blayne ntar tenderness: b/l cts Skin thickening, psoriasis, photosensitivity, purpura: skin changes on palms/small of back/behind ears x 10years Nail changes: brittle Alpecia, patchy: yes 2years Eye inflammation: no SICCA: dry eyes/mouth Oral/nasal/genital ulcers: no GI problems-diarrhea/bleeding/IBD/ Gluten intolerence/Dysphagia: gerd Raynaud's phenomenon/digital ulcers: fingertips turn white/blue when cold Organ inv-Serositis: no Lung disease/ILD: no Myopathy/proximal muscle weakness: no Abnormal Urine or urethritis: no Renal/liver disease: no SOFTWARE PROGRAMMER/PNS/sz/cva/cancer disease: no HEME-Cytopenias/LAD/Clots: no Fevers: no Fatigue: yes, sleeps 4-6hrs hrs/night PMR/GCA ROS: negative Patient denies history of Gout or Pseudogout, Psoriasis, Rheumatic Fever, PUD, Liver Disease, Hepatitis , Kidney Disease, Kidney Stones, DM, CAD, Dyslipidemia, PAD, Sinusitis, Asthma, TB infection or exposure, Pneumonias, Anemia, Seizures, Stroke, MS, Clots, Cancer, Thyroid Disease, Transfusions, Tattoos , and Alcohol dependency. Other ROS:The remainder of the review of systems is negative. All other reviewed and negative other than HPI. PATIENT REPORTS: Cardiac stress test:no Breast exam:negative Pap exam: normal, last menses 12/2022 irregular, not taking hormones; G5, P3, 2miscarriage Colonoscopy: not yet Bone Density:not yet History of Fractures:no Height Loss: no IMMUNIZATION HX: Immunization History Administered Date(s) Administered COVID-19 original vaccine, age 12+ yr, monovalent (CanDiag - PURPLE TOP) 07/02/2021 08/04/2021 Pneumovax no Flu shot no Tetanus yes Last PPD: negative years ago PAST MEDICAL HISTORY: PMH meniere's disease, vertigo, PTSD, bipolar disorder, gerd, anxiety/depression, borderline hypercholesterolemia, htn, s/p kidney lithotripsy 2020, s/p csection x 3, gallstones/still has gallbladder, s/p b/l carpal tunnel syndrome 07/2022 and 08/2022 PAST SURGICAL HISTORY: s/p kidney lithotripsy 2020, s/p csection x 3 FAMILY HISTORY: mother- psoriatic arthritis;brother , gout; father- osteoarthritis, gout, psoriasis, afib;uncle- osteoarthritis, multiple surgeries;GF- psoriasis, rheumatoid arthritis; SOCIAL HISTORY: Job former laborer livestock, nurse's aide Smoking 1ppd x 20years; quit 7years, and quit 11/2022 etoh no no gout MEDICATIONS: reviewed medlist January 30, 2023 Calcium no Vitamin D 5000 International Units daily with food CURRENT ALLERGIES: All (more content not included)... [facility] 12-11-2022 Note HOSPITAL REGULATIONS : All Positive and Important Negative Findings Shall Be Recorded Date of Consultation: 12/10/2022 Attending Physician: Adeel Ceja M.D. Consulting Physician: Meliton Garcia M.D. CONSULTED BY: Tommy Segundo, M.D., Neurosurgery at [facility] CHIEF COMPLAINT: Pain everywhere. HISTORY OF PRESENT ILLNESS: A 52-year-old female, right-hand dominant. She does not work. She was referred to me by Dr. Segundo but I told her first thing is I am no longer going to be at [facility] in the next few weeks. She has been plugged into the [facility] concerning her low back L1-L2 and also has had bilateral carpal tunnel surgery done at the Clinic. She states she has a SLAP lesion in her left shoulder. Most of her left arm misery began after a left shoulder injection by a KAUSHIK Barrow through [facility] in [place]. Again she has seen many, many doctors. I have recommended she follow up with the [facility] concerning any spine issues and also with her surgeon who did her bilateral carpal tunnel also at the [facility] concerning her left shoulder issue. I did not examine the patient, I simply reviewed the MRIs. I will not be taking over the care of the patient. INVESTIGATIONS: MRI of her cervical spine performed recently shows maybe a little bit more than age appropriate spondylosis. She has no spinal cord compression. She has varying degrees of foraminal stenosis both left and right. IMPRESSION: A 52-year-old female right-hand dominant with significant neck, left arm and concerning shoulder issues. PLAN: I again recommended she talk to her Pain Management doctor. I think a merida part of her diagnostic workup would be cervical epidural steroid injection. If she gets a cervical epidural steroid injection that can tell us a lot and discern whether or not a lot of her upper extremity issues are coming from her neck or her shoulder. She can follow up with any of the providers she has seen in the past but I recommend she try to get her care through one institution like [facility]. No need for follow up at [facility]. Meliton Garcia M.D. Dictated: 12/10/2022 [id number] Transcribed: 12/11/2022 cc:Adeel Ceja M.D. cc:Tommy Segundo M.D. [facility] Comment on above: Result Comment: Elec tronically Signed By: Jose HIGUERA, Meliton Sarabia\.br\Date and Time Signed: 12/11/22 10:17 EST 11-14-2022 Evaluation note Encounter Date Diagnosis Assessment Notes Nov, Cervical spondylosis (ICD-10 - M47.812) This is a very difficult patient who is quite histrionic about many symptoms. She has a definite primary shoulder problem and apparently immediately after an injection into the shoulder the patient complained of pain down the arm and tingling of all fingers of the hand and the entire arm that has not stopped since this occurred in July. She says that she can push on an area in the supraclavicular region and cause her arm to tingle. Physical exam with proper distraction shows essentially normal strength. I am not certain as to the pathology I independently reviewed the MRI of the cervical spine that shows a foraminal stenosis secondary to a disc osteophyte C6-7 on the left. This is a very atypical presentation; it should not cause tingling of all fingers of the hand nor 360 degree tingling of her arm. I am very hesitant to offer surgical intervention with this patient I just do not think it is going to help. I would like her to have a second opinion with another cervical spine expert, Dr. Garcia at [facility]. I told her to go with what he feels is appropriate. A referral will be sent Nov, Unspecified arthropathy, shoulder region (ICD-10 - M19.019) simfy Other 12-06-2022 NoteCONSULTATION CONSULTATION DATE: 10/15/2022 CHIEF COMPLAINT: Cervical pain, arm discomfort. HISTORY OF PRESENT ILLNESS: This is a pleasant, 52-year-old female who was referred to us by Dr. Ceja. The patient has had chronic cervical pain. She rates it 20+ years ago. Also, pain in her hands bilaterally. The patient reports a tightness sensation, a sharp sensation intermittently. Twisting her head, pushing, pulling, lifting, looking up, vacuuming aggravate the patient's pain. Ice mitigates the patient's pain. Cold weather aggravates the pain. The patient currently takes ibuprofen 800 mg, Robaxin 750, Remeron 30- mg q.h.s. , buspirone 30 mg, Alprazolam 1 mg intermittently. The patient is a smoker and is working very hard to stop her smoking. The patient's PAST MEDICAL HISTORY / SURGICAL HISTORY / REVIEW OF SYSTEMS are noted on the chart, along with the MEDICATION LIST / ALLERGIES and the RADIOLOGICAL IMAGES, including the MRI of the cervical spine which was reviewed with the patient today. PHYSICAL EXAM: Upon physical examination, this is a pleasant, cooperative female. VITAL SIGNS: Stable at 123/82. At a height o 5'5 , the patient weighs 64 kg. HEAD: Atraumatic, normocephalic. NECK: Crepitus is noted. Extension, compression, direct palpation along the posterior elements aggravate the patient's pain. The patient has a prominent cervical thoracic kyphosis and an anterior glide noted along the C7-T1. EXTREMITIES: No clubbing or cyanosis. Motor is intact in the upper extremities; however, hypoesthesia is present along the C6 distribution on the left hand side. The patient has had a carpal tunnel release remotely in the past. Biceps reflexes are blunted; however, the patient's relaxation component is also difficult. BACK: Significant thoracolumbar paravertebral spasming is noted. Poor posture is noted. IMPRESSION: Current working diagnosis on the patient is cervical pain, cervical degenerative disc disease prominent at the level of C5-6 and C6-7 with narrowing of the spinal canal. Disc extruded material along the anterior ligament. The patient also has a bulging disc at the level of C4-C5. Left arm pain, cervical spinal canal stenosis. PLAN: We will have the patient start a home cervical traction in a gentle manner with a counterweight. A neurosurgical consult will be requested by Dr. Tommy Segundo. The patient understands and would like to proceed. CC: Adeel Ceja M.D. [facility]11-17-2022 NoteHNO ID: [id number] Author: Cooper Valle, DO Service: ? Author Type: Physician Type: Progress Notes Filed: 09/26/2022 1:27 PM Note Text: Rupinder Miller is a patient of Adeel Ceja MD. CHIEF COMPLAINT: Rupinder Miller is a 52 year old female who presents today for new evaluation of Left shoulder pain. HISTORY OF PRESENT ILLNESS: Ms. Miller is a 52-year-old female presents today for evaluation of her left shoulder. She has had pain in the left shoulder for years. She states that she was told at one point that she had a torn rotator cuff. She is done physical therapy medications and injections. She states injections seem to make things worse. Raising the arm out to the side and overhead is difficult. She notices pain that radiates into her neck and all the way down her left arm. She states it feels as if a TENS unit is running down her arm constantly. She states that she recently had an MRI of her neck performed and has a follow-up with a neck doctor to go over this. She is not sure of the results but states that an MRI of her neck in the past showed some significant changes . She had both carpal tunnels released and still gets some numbness and tingling in the left hand. PAIN EVALUATION 09/26/2022 1259 Pain Level: -- PATIENT IS UNABLE TO RATE HER PAIN Pain Location: Shoulder-Left Description: Aching;Other: See comment VIBRATING, ELECTRICAL Duration Amount of Time: 1 Duration Units: Months Frequency: Continuous Intervention/Comfort measure: Other: See comment;Reposition;Cold;Medication Comments: MOTRIN, NEURONTIN, MUSCLE RELAXER ROS: REVIEW OF SYMPTOMS: Constitutional: patient denies any recent fever or significant change in weight Gastrointestinal: patient denies any current abdominal discomfort Musculoskeletal: as noted in the HPI Neurologic: as noted in the HPI SOCIAL HISTORY: Tobacco Use: Not on file ALLERGIES: ALLERGIES Allergen Reactions Acetaminophen-Caff-* Hives, Other: See Comments Fentanyl Other: See Comments Headache and nausea Hydrochlorothiazide Hives Midazolam Other: See Comments Headache and nausea Morphine Rash PAST MEDICAL HISTORY: No past medical history on file. SOCIAL HISTORY: Tobacco Use: Not on file PHYSICAL EXAMINATION: Patient has diffuse tenderness palpation around the left shoulder and upper trapezial area. She can initiate left shoulder abduction forward flexion but heavily guards when she gets to about 45 degrees. Passively I can achieve near full range of motion with some discomfort. She has a negative drop arm test. He has adequate strength in both shoulders with resisted abduction and forward flexion. No significant weakness noted. She has decree sensation of the median nerve distribution in the left hand. IMAGING: X-rays of the patient's left shoulder taken in the office today reveal no fractures or dislocations. There are some mild degenerative changes of the chronic joint MRI of the patient's left shoulder brought in by the patient's Was reviewed and does not show any rotator cuff tearing. There are some mild rotator cuff this. There are some increased signal in the superior glenoid labrum which could represent a labral tear.. There is large inferior spurring of the acromioclavicular joint causing bony impingement on the rotator cuff CLINICAL IMPRESSION / ASSESSMENT: Impingement syndrome left shoulder with possible glenoid labral tearing Cervical radiculopathy RECOMMENDATION / PLAN: I explained the patient that rotator cuff issues and labral issues not typically create any nerve type symptoms down the entire left arm. She states that she has some significant cervical issues and I recommend that she be evaluated by a cervical specialist for this. If they determined that her neck is not a problem then I would have her return for reevaluation in which case we may consider a left shoulder arthroscopic decompression. Patient will follow-up with me as needed. I spent a total of 20 minutes on the date of the service which included preparing to see the patient, [id number] patient care, completing clinical documentation, obtaining and/or reviewing separately obtained history, performing a medically appropriate examination, and counseling and educating the patient/family/caregiver. Verbal health education was given to patient. Patient verbalizes understanding and agrees with the treatment plan as detailed above. Cooper Valle [facility]11-17-2022 NoteHNO ID: [id number] Author: RT Anjana(Susy) Service: ? Author Type: Technologist Type: Progress Notes Filed: 09/26/2022 12:21 PM Note Text: Radiology Service Progress Note PATIENT NAME: Rupinder Miller DATE OF SERVICE: September 26, 2022 TIME: 12:21 PM PATIENT IDENTITY VERIFICATION COMPLETED USING TWO (2) IDENTIFIERS: Name and Date of confirmed by patient verbally. FALL SCREENING: Has the patient had 2 falls in the last year or 1 fall with injury or currently using an Ambulatory Assistive Device (Walker, Cane, Wheelchair, Crutches, etc.)? No PATIENT GENDER DATA: Female. status: : No status: NO. PATIENT RELEVANT IMPLANT DATA REVIEWED: Not Applicable RADIOLOGY DEPARTMENT: General X-ray: Exam(s) Completed: Upper Extremity X-Ray(s): Shoulder, AP / TRUE AP / AXILLARY left PERIPHERAL IV DATA: Not applicable SIGNED BY: RT Anjana(Susy) September 26, 2022 12:21 [facility]11-17-2022 History of Present illness Narrative* Cooper Valle, DO - 09/26/2022 1:22 PM EST Images from the original note were not included. Rupinder Miller is a patient of Adeel Ceja MD. CHIEF COMPLAINT: Rupinder Miller is a 52 year old female who presents today for new evaluation of Left shoulder pain. HISTORY OF PRESENT ILLNESS: Ms. Miller is a 52-year-old female presents today for evaluation of her left shoulder. She has had pain in the left shoulder for years. She states that she was told at one point that she had a torn rotator cuff. She is done physical therapy medications and injections. She states injections seem to make things worse. Raising the arm out to the side and overhead is difficult. She notices pain that radiates into her neck and all the way down her left arm. She states it feels as if a TENS unit is running down her arm constantly. She states that she recently had an MRI of her neck performed and has a follow-up with a neck doctor to go over this. She is not sure of the results but states that an MRI of her neck in the past showed some significant changes . She had both carpal tunnels released and still gets some numbness and tingling in the left hand. PAIN EVALUATION 09/26/2022 1259 Pain Level: -- PATIENT IS UNABLE TO RATE HER PAIN Pain Location: Shoulder-Left Description: Aching;Other: See comment VIBRATING, ELECTRICAL Duration Amount of Time: 1 Duration Units: Months Frequency: Continuous Intervention/Comfort measure: Other: See comment;Reposition;Cold;Medication Comments: MOTRIN, NEURONTIN, MUSCLE RELAXER ROS: REVIEW OF SYMPTOMS: Constitutional: patient denies any recent fever or significant change in weight Gastrointestinal: patient denies any current abdominal discomfort Musculoskeletal: as noted in the HPI Neurologic: as noted in the HPI SOCIAL HISTORY: Tobacco Use: Not on file ALLERGIES: ALLERGIES Allergen Reactions Acetaminophen-Caff-* Hives, Other: See Comments Fentanyl Other: See Comments Headache and nausea Hydrochlorothiazide Hives Midazolam Other: See Comments Headache and nausea Morphine Rash PAST MEDICAL HISTORY: No past medical history on file. SOCIAL HISTORY: Tobacco Use: Not on file PHYSICAL EXAMINATION: Patient has diffuse tenderness palpation around the left shoulder and upper trapezial area. She caninitiate left shoulder abduction forward flexion but heavily guards when she gets to about 45 degrees. Passively I can achieve near full range of motion with some discomfort. She has a negative drop arm test. He has adequate strength in both shoulders with resisted abduction and forward flexion. Nosignificant weakness noted. She has decree sensation of the median nerve distribution in the left hand. IMAGING: X-rays of the patient's left shoulder taken in the office today reveal no fractures or dislocations. There are some mild degenerative changes of the chronic joint MRI of the patient's left shoulder brought in by the patient's Was reviewed and does not show any rotator cuff tearing. There are some mild rotator cuff this. There are some increased signal in the superior glenoid labrum which could represent a labral tear.. There is large inferior spurring of the acromioclavicular joint causing bony impingement on the rotator cuff CLINICAL IMPRESSION / ASSESSMENT: Impingement syndrome left shoulder with possible glenoid labral tearing Cervical radiculopathy RECOMMENDATION / PLAN: I explained the patient that rotator cuff issues and labral issues not typically create any nerve type symptoms down the entire left arm. She states that she has some significant cervical issues and I recommend that she be evaluated by a cervical specialist for this. If they determined that her neck is not a problem then I would have her return for reevaluation in which case we may consider a left shoulder arthroscopic decompression. Patient will follow-up with me as needed. I spent a total of 20 minutes on the date of the service which included preparing to see the patient, [id number] patient care, completing clinical documentation, obtaining and/or reviewing separately obtained history, performing a medically appropriate examination, and counseling and educating the patient/family/caregiver. Verbal health education was given to patient. Patient verbalizes understanding and agrees with the treatment plan as detailed above. Cooper Valle DO [facility]22 NoteHNO ID: [id number] Author: Amanda Echeverria PA-C Service: ? Author Type: Physician Wrapper Counter Type: Progress Notes Filed: 09/19/2022 3:01 PM Note Text: HISTORY: Rupinder Miller is a 52 year old female who presents today following up 2 weeks status post Left carpal tunnel release from 09/06/2022. Patient reports hand is doing well. Denies fever, chills, drainage from the incision. Her bigger issues is her left shoulder pain for which she is seeing Dr. Valle for next week. Her shoulder pain was so severe she had to go to the ED and was given some Cumming. The shoulder pain feels electrical She is scheduled for a cervical MRI as well. Reports having a lot of muscular spasm. She has had a cortisone injection and physical therapy at outside facility. Does have a history of chronic cervical issues in the past per patient The patient's past medical history, surgical history, social history, family history, medications and allergies were reviewed with the patient today and are available in the chart for further review. EXAMINATION: On physical exam of the Left hand today, the incision is healing nicely. There is No erythema, warmth, drainage coming from the incision. Normal ROM of all of the fingers and wrist. Sensation to light touch is intact in the median nerve distribution. Sensation to light touch is intact in the ulnar and radial nerve distributions. Radial pulse is 2+. Capillary refill is brisk. Neurovascularly intact. Brief exam of left shoulder limited range of motion and muscular spasm noted. No warmth or erythema at shoulder, mild discomfort with neck range of motion. Moderate weakness noted. RADIOGRAPHS: no new films today IMPRESSION: S/P Left Carpal Tunnel Release Left shoulder pain/ arm pain question referral from cervical spine, shoulder MRI notes a type II SLAP tear report from outside facility PROCEDURE: None. PLAN: All sutures removed today without complication re enforced with steri strips. Patient with electrical left arm pain . Discussed with patient the MRI with the SLAP tear would not expect to be causing this atypical electrical radiating arm pain. She is scheduled for a MRI on her cervical spine at outside facility. Recommend patient follow through with this testing and then keep follow up with Dr. Valle next week to further review her shoulder MRI and clinical condition. Discussed limiting pushing, pulling, lifting activities until the incision is fully healed. No submerging the hand in water until incision is healed. Incision may be cleaned once a day with peroxide and covered with a band-aid during activities in which it could get dirty, otherwise it may be left open to the air. No ointments, creams, or gels. Follow up 1 week for shoulder eval with Dr. Valle. KAUSHIK [facility]11-10-2022 History of Present illness Narrative* Amanda Echeverria PA-C - 09/19/2022 2:01 PM EST HISTORY: Rupinder Miller is a 52 year old female who presents today following up 2 weeks status post Left carpal tunnel release from 09/06/2022. Patient reports hand is doing well. Denies fever, chills, drainage from the incision. Her bigger issues is her left shoulder pain for which she is seeing Dr. Valle for next week. Her shoulder pain was so severe she had to go to the ED and was given some Cumming. The shoulder pain feels electrical She is scheduled for a cervical MRI as well. Reports having a lot of muscular spasm. She has had a cortisone injection and physical therapy at outside facility. Does have a history of chronic cervical issues in the past per patient The patient's past medical history, surgical history, social history, family history, medications and allergies were reviewed with the patient today and are available in the chart for further review. EXAMINATION: On physical exam of the Left hand today, the incision is healing nicely. There is No erythema, warmth, drainage coming from the incision. Normal ROM of all of the fingers and wrist. Sensation to light touch is intact in the median nerve distribution. Sensation to light touch is intact in the ulnar and radial nerve distributions. Radial pulse is 2+. Capillary refill is brisk. Neurovascularly intact. Brief exam of left shoulder limited range of motion and muscular spasm noted. No warmth or erythemaat shoulder, mild discomfort with neck range of motion. Moderate weakness noted. RADIOGRAPHS: no new films today IMPRESSION: S/P Left Carpal Tunnel Release Left shoulder pain/ arm pain question referral from cervical spine, shoulder MRI notes a type II SLAP tear report from outside facility PROCEDURE: None. PLAN: All sutures removed today without complication re enforced with steri strips. Patient with electrical left arm pain . Discussed with patient the MRI with the SLAP tear would not expect to be causing this atypical electrical radiating arm pain. She is scheduled for a MRI on her cervical spine at outside facility. Recommend patient follow through with this testing and then keep follow up with Dr. Valle next week to further review her shoulder MRI and clinical condition. Discussed limiting pushing, pulling, lifting activities until the incision is fully healed. No submerging the hand in water until incision is healed. Incision may be cleaned once a day with peroxide and covered with a band-aid during activities in which it could get dirty, otherwise it may be left open to the air. No ointments, creams, or gels. Follow up 1 week for shoulder eval with Dr. Valle. Amanda Echeverria PA-C documented in this encounter[facility]11-07-2022 NoteHNO ID: [id number] Author: Umm Mercedes MD Service: ? Author Type: Physician Type: Progress Notes Filed: 09/16/2022 5:47 PM Note Text: [facility] Office Visit Date: September 16, 2022 Rupinder Miller is seen in consultation requested by Dr. Adeel Ceja for an opinion regarding shoulder pain. My final recommendations will be communicated back to the requesting physician by way of shared medical record or via US mail. Chief Complaint: Patient presents with: New Patient Evaluation: Pain Acute left shoulder pain NURSING ASSESSMENT: AMB ROOMING INTAKE FLOWSHEET DATA Risk Screening Do you have concerns about personal safety or safety in the home?: No Pain Pain Level: 10 Pain Location: Shoulder-Left Description: Cramping Duration Amount of Time: 21 Duration Units: Days Frequency: Continuous Intervention/Comfort measure: Medication Occupation: unemployed [employer] [place] September 16, 2022 Attestation: The above information was explored in detail with the patient and edited as needed and is complete. Umm Mercedes MD September 16, 2022 HISTORY OF PRESENT ILLNESS Rupinder Miller presents to [facility] for the evaluation of acute left shoulder pain. Onset: 21 days ago Precipitating event: shoulder examination and injection by outside orthopedic provider (Edison Betancourt [employer]) Location: shoulder - left Radiation: radiates to the left upper extremity along the anterior aspect to the level of the wrist Quality: excruciating and cramping Progression: persistent and worsening Severity: 10 on a scale of 0-10. Frequency: constant Alleviating factors: medications, ice , and heat Exacerbating factors: sitting, standing, forward flexion, lifting, and walking Symptoms interfere with: physical activity, sitting, household cleaning, reaching for shelves, lifting, and social activities. Red flags: Patient denies difficulty with bowel or bladder control, unintentional weight loss, and fevers, chills, or night sweats. Previous/Current Treatment Pain medications (efficacy, side effects): Gabapentin 800 mg Oxycodone 5-325 mg Tizanidine 4 mg Injections: 08/26/2022 Dr. Edison Fitzpatrick steroid injection Surgeries: None Active conservative therapy: None Passive conservative therapy: None Current anticoagulation: None OBJECTIVE BP 140/87 Pulse 99 Ht 5' 5 (1.65m) Wt 138 lb (62.6kg) LMP 07/15/2022 BMI 22.96 kg/(m2). Physical Examination: General: well appearing, alert, and in no acute distress Skin: skin color, texture, turgor normal, no rashes or lesions HEENT: normocephalic, atraumatic, sclera non-icteric Cardiac: Regular rhythm and rate. No lower extremity edema. Pulmonary: Unlabored breathing on room air. Symmetric chest expansion Abdomen: Soft, non-distended, non-tender. Left Shoulder: no skin color changes. Markedly restricted range of motion due to pain. Significant guarding. No pain with light touch. Pain with palpation of posterior shoulder. I did not manipulate shoulder to assess range of motion fully due to severe pain. Extremities normal. No deformities, edema, or skin discoloration Neurological: Mental Status: alert, oriented to person/place/time Cranial Nerves: CN2-12 grossly intact. Sensory: Intact to light touch throughout Reflexes: Not Examined Motor Strength: Workday Director strength intact. Unable to fully assess strength of left upper extremity. Standard gait: normal. Assistive device: independent New or Pertinent Data: Imaging: OSH left shoulder MRI uploaded into our records ASSESSMENT: Rupinder Miller is a 52 year old female with PMH fibromyalgia, anxiety, HTN, low back pain who presents with acute left shoulder pain. She has chronic shoulder pain for which she was undergoing evaluation and injection by an outside provider. At this exam, per patient, she experienced acute worsening of pain. Ultimately MRI shoulder was done per patient and demonstrated Type 2 SLAP lesion per patient's copy of MRI report. We uploaded her MRI today to our medical record system. I explained to the patient that I do not manage acute orthopedic conditions and I would not be able to guide her appropriately on the rehabilitative strategies, activity restrictions, surgical options etc. She would be best evaluated by orthopedics and she stated a desire to follow up with Dr. Valle/Amanda Echeverria sooner than later. I paged PA Sammy Echeverria who promptly responded and will assist with facilitating a sooner appointment for the patient. In the mean time, I've counseled the patient to continue anti-inflammatory regimen. M25.512 Acute pain of left shoulder (primary encounter diagnosis) PLAN: - Continue scheduled NSAIDs as tolerated with food - Trial diclofenac gel 1% four times daily - Continue ice and rest - Follow up with orthopedic daniele (more content not included)...[facility]11-07-2022 Instructions* Patient Instructions* Umm Mercedes MD - 09/16/2022 3:15 PM EST 1) I recommend seeing Dr. Valle and his team regarding your new shoulder pain for further evaluation and treatment. documented in this encounterMer[facility]11-07-2022 History of Present illness Narrative* Umm Mercedes MD - 09/16/2022 2:30 PM EST [facility] Office Visit Date: September 16, 2022 Rupinder Miller is seen in consultation requested by Dr. Adeel Ceja for an opinion regarding shoulder pain. My final recommendations will be communicated back to the requesting physician by way of shared medical record or via US mail. Chief Complaint: Patient presents with: New Patient Evaluation: Pain Acute left shoulder pain NURSING ASSESSMENT: AMB ROOMING INTAKE FLOWSHEET DATA Risk Screening Do you have concerns about personal safety or safety in the home?: No Pain Pain Level: 10 Pain Location: Shoulder-Left Description: Cramping Duration Amount of Time: 21 Duration Units: Days Frequency: Continuous Intervention/Comfort measure: Medication Occupation: unemployed [employer] [place] September 16, 2022 Attestation: The above information was explored in detail with the patient and edited as needed andis complete. Umm Mercedes MD September 16, 2022 HISTORY OF PRESENT ILLNESS Rupinder Miller presents to [facility] for the evaluation of acute left shoulder pain. Onset: 21 days ago Precipitating event: shoulder examination and injection by outside orthopedic provider (Edison Rodriguez) Location: shoulder - left Radiation: radiates to the left upper extremity along the anterior aspect to the level of the wrist Quality: excruciating and cramping Progression: persistent and worsening Severity: 10 on a scale of 0-10. Frequency: constant Alleviating factors: medications, ice , and heat Exacerbating factors: sitting, standing, forward flexion, lifting, and walking Symptoms interfere with: physical activity, sitting, household cleaning, reaching for shelves, lifting, and social activities. Red flags: Patient denies difficulty with bowel or bladder control, unintentional weight loss, and fevers, chills, or night sweats. Previous/Current Treatment Pain medications (efficacy, side effects): Gabapentin 800 mg Oxycodone 5-325 mg Tizanidine 4 mg Injections: 08/26/2022 Dr. Edison Fitzpatrick steroid injection Surgeries: None Active conservative therapy: None Passive conservative therapy: None Current anticoagulation: None OBJECTIVE BP 140/87 Pulse 99 Ht 5' 5 (1.65m) Wt 138 lb (62.6kg) LMP 07/15/2022 BMI 22.96 kg/(m^2). Physical Examination: General: well appearing, alert, and in no acute distress Skin: skin color, texture, turgor normal, no rashes or lesions HEENT: normocephalic, atraumatic, sclera non-icteric Cardiac: Regular rhythm and rate. No lower extremity edema. Pulmonary: Unlabored breathing on room air. Symmetric chest expansion Abdomen: Soft, non-distended, non-tender. Left Shoulder: no skin color changes. Markedly restricted range of motion due to pain. Significant guarding. No pain with light touch. Pain with palpation of posterior shoulder. I did not manipulate shoulder to assess range of motion fully due to severe pain. Extremities normal. No deformities, edema, or skin discoloration Neurological: Mental Status: alert, oriented to person/place/time Cranial Nerves: CN2-12 grossly intact. Sensory: Intact to light touch throughout Reflexes: Not Examined Motor Strength: Workday Director strength intact. Unable to fully assess strength of left upper extremity. Standard gait: normal. Assistive device: independent New or Pertinent Data: Imaging: OSH left shoulder MRI uploaded into our records ASSESSMENT: Rupinder Miller is a 52 year old female with PMH fibromyalgia, anxiety, HTN, low back pain who presents with acute left shoulder pain. She has chronic shoulder pain for which she was undergoing evaluation and injection by an outside provider. At this exam, per patient, she experienced acute worsening of pain. Ultimately MRI shoulder was done per patient and demonstrated Type 2 SLAP lesion per patient's copy of MRI report. We uploaded her MRI today to our medical record system. I explained to the patient that I do not manage acute orthopedic conditions and I would not be able to guide her appropriately on the rehabilitative strategies, activity restrictions, surgical options etc. She would be best evaluated by orthopedics and she stated a desire to follow up with Dr. Valle/Amanda Echeverria sooner than later. I paged KAUSHIK Echeverria who promptly responded and will assist with facilitating a sooner appointment for the patient. In the mean time, I've counseled the patient to continue anti-inf lammatory regimen. M25.512 Acute pain of left shoulder (primary encounter diagnosis) PLAN: - Continue scheduled NSAIDs as tolerated with food - Trial diclofenac gel 1% four times daily - Continue ice and rest - Follow up with orthopedic surgery I counseled the patient on the importance of health promotion and lifestyle modifications includingactivity modification, consistent sleep habits, and stress management. We also discussed risks/benefits/alternatives to medication management, pain management interventions, physical or occupational therapy, psychological pain management and surgical options as appropriate. The above plan and management options were discussed with patient. The patient is in agreement withthe above and verbalized understanding. Umm Mercedes MD September 16, 2022 Note was dictated using the [employer] software. Please excuse any typos that may result. RELEVANT HISTORY FROM THE ELECTRONIC MEDICAL RECORD Allergies ALLERGIES Allergen Reactions Acetaminophen-Caff-* Hives, Other: See Comments Fentanyl Other: See Comments Headache and nausea Hydrochlorothiazide Hives Midazolam Other: See Comments Headache and nausea Morphine Rash Current Medications methocarbamol (ROBAXIN ORAL) Take 750 mg by mouth. mirtazapine (REMERON) 15 mg tablet Take 7.5 mg by mouth daily at bedtime. omega-3/dha/epa/dpa/fish oil (OMEGA-3 2100 ORAL) Take by mouth. ALPRAZolam (XANAX) 1 mg tablet Take 1 mg by mouth three times daily as needed. busPIRone HCl 30 mg tablet cholecalciferol, Vitamin D3, (VITAMIN D3) 1,250 mcg (50,000 unit) cap capsule One capsule q.month gabapentin (NEURONTIN) 800 mg tablet NIFEdipine XL (ADALAT CC) 60 mg 24 hr tablet promethazine (PHENERGAN) 25 mg tablet Take 25 mg by mouth. tiZANidine (ZANAFLEX) 4 mg tablet meclizine (ANTIVERT) 25 mg tab Take 25 mg by mouth three times daily as needed. QUEtiapine (SEROQUEL) 100 mg tablet Past Medical History Fibromyalgia Anxiety HTN Low back pain - per care everywhere Past Surgical History section Left carpal tunnel release - 09/06/2022 - Nicola Right carpal tunnel release -07/22/2022- Nicola Social History Alcohol Use: Social Tobacco Use: h/o smoking per CareEverywhere Family History No family history on file. MEDICAL DECISION MAKING The [facility] EMR was reviewed during the visit including: Problem List, Past Medical History, Past Surgical History, Medications, Allergies, Encounters with other providers and associated notes, Imaging, and Labs I spent 10 minutes reviewing the patient's medical record including pertinent laboratory results and available imaging Imaging: [facility] images and results are documented in the electronic medical record and were reviewed Outside medical records review: No OARRS: PDMP website checked and validated and is consistent with medication report. *Information in italics was copied from the shared EMR Medical Decision Making: Problems: Moderate: New problem with uncertain prognosis Data: Unique source(s) for external note(s) reviewed: 1 Unique test result(s) reviewed: 1 Medical Decision Making Level: 3 - Low documented in this encounterMer[facility]09-26-2022 Miscellaneous Notes* Telephone Encounter - Heidi Walker - 08/05/2022 11:42 AM EDT Spoke to patient and scheduled surgery for left CTR with Dr. Valle for 09/06/22 under Local. Post op also scheduled. documented in this encounterMercy Health09-22-2022 NoteHNO ID: [id number] Author: Cooper Valle DO Service: ? Author Type: Physician Type: Progress Notes Filed: 08/01/2022 3:16 PM Note Text: Rupinder Miller is a patient of Adeel Ceja MD. CHIEF COMPLAINT: Rupinder Miller is a 52 year old female who presents today for follow up of her right carpal tunnel release from last week. HISTORY OF PRESENT ILLNESS: Patient presents today just over a week follow-up on her right carpal tunnel release. She is also having carpal tunnel symptoms in the left hand and is interested in proceeding with a left surgery. She states that she still has the numbness and tingling in the right hand is not any better than it was prior to surgery. PAIN EVALUATION 08/01/2022 1454 Pain Level: 2 Pain Location: Hand-Right Description: Aching Duration Amount of Time: 10 Duration Units: Days Frequency: Intermittent Intervention/Comfort measure: Splinting;Medication ALLERGIES: ALLERGIES Allergen Reactions Acetaminophen-Caff-* Hives, Other: See Comments Fentanyl Other: See Comments Headache and nausea Hydrochlorothiazide Hives Midazolam Other: See Comments Headache and nausea Morphine Rash PAST MEDICAL HISTORY: No past medical history on file. SOCIAL HISTORY: Tobacco Use: Not on file PHYSICAL EXAMINATION: Patient's right palmar incision is healing well. No surrounding erythema. She still has decree sensation of the median nerve distribution in both hands. Cap refills within normal notes in all digits. CLINICAL IMPRESSION / ASSESSMENT: Right carpal tunnel syndrome status post right carpal tunnel release from just under 2 weeks ago Left carpal tunnel syndrome RECOMMENDATION / PLAN: I discussed the treatment options with the patient today at length. The patient is interested in proceeding with a left carpal tunnel release surgery. We will schedule this for the near future. As for the right hand her sutures were removed today without any complications. I advised her that it could take multiple weeks to months for the nerve to recover if it is going to recover following the surgery. Patient understands. Verbal health education was given to patient. Patient verbalizes understanding and agrees with the treatment plan as detailed above. Cooper Valle [facility]09-22-2022 History of Present illness Narrative* Cooper Valle DO - 08/01/2022 3:13 PM EDT Rupinder Miller is a patient of Adeel Ceja MD. CHIEF COMPLAINT: Rupinder Miller is a 52 year old female who presents today for follow up of her right carpal tunnel release from last week. HISTORY OF PRESENT ILLNESS: Patient presents today just over a week follow-up on her right carpal tunnel release. She is also having carpal tunnel symptoms in the left hand and is interested in proceeding with a left surgery. She states that she still has the numbness and tingling in the right hand is not any better than it was prior to surgery. PAIN EVALUATION 08/01/2022 1454 Pain Level: 2 Pain Location: Hand-Right Description: Aching Duration Amount of Time: 10 Duration Units: Days Frequency: Intermittent Intervention/Comfort measure: Splinting;Medication ALLERGIES: ALLERGIES Allergen Reactions Acetaminophen-Caff-* Hives, Other: See Comments Fentanyl Other: See Comments Headache and nausea Hydrochlorothiazide Hives Midazolam Other: See Comments Headache and nausea Morphine Rash PAST MEDICAL HISTORY: No past medical history on file. SOCIAL HISTORY: Tobacco Use: Not on file PHYSICAL EXAMINATION: Patient's right palmar incision is healing well. No surrounding erythema. She still has decree sensation of the median nerve distribution in both hands. Cap refills within normal notes in all digits. CLINICAL IMPRESSION / ASSESSMENT: Right carpal tunnel syndrome status post right carpal tunnel release from just under 2 weeks ago Left carpal tunnel syndrome RECOMMENDATION / PLAN: I discussed the treatment options with the patient today at length. The patient is interested in proceeding with a left carpal tunnel release surgery. We will schedule this for the near future. As for the right hand her sutures were removed today without any complications. I advised her that it could take multiple weeks to months for the nerve to recover if it is going to recover following the surgery. Patient understands. Verbal health education was given to patient. Patient verbalizes understanding and agrees with the treatment plan as detailed above. Cooper Valle DO documented in this encounterMercy Health09-07-2022 Miscellaneous Notes* Telephone Encounter - Janessa Monroe - 07/17/2022 4:55 PM EDT Patient is calling in regards to below. Please for surgery schedule. Please call patient two times in a row. She was not able to reach telephone in time. Please advise. * Telephone Encounter - Heidi Walker - 07/17/2022 4:07 PM EDT Tried contacting patient to schedule surgery with Dr. Valle for right carpal tunnel release, and voice mailbox is full. Tired to send [employer] message, but it appears the patient doesn't have a [employer] account. documented in this encounterMercy Health09-06-2022 NoteHNO ID: [id number] Author: Cooper Valle, DO Service: ? Author Type: Physician Type: Progress Notes Filed: 07/16/2022 3:17 PM Note Text: Rupinder Miller is here today at request of KAUSHIK Perdomo specifically for consultation of my opinion in regards to the chief complaint listed below. Correspondence will be shared today via the [facility] electronic health record or through regular mail, where applicable. CHIEF COMPLAINT: Rupinder Miller is a 52 year old female who presents today for new evaluation of bilateral carpal tunnel syndrome. HISTORY OF PRESENT ILLNESS: Ms. Miller is a 52-year-old bzaoi-omgo-kcfpemxk female presents today for evaluation of bilateral hand pain and numbness. States that the symptoms since she was a teenager. She is tried braces at nighttime which did not help. She has complete numbness in the thumb index middle and ring fingers of both hands. She had major nerve test performed recently which suggested moderate bilateral carpal tunnel syndrome. The symptoms significantly interfere with her daily activities and overall quality of life. She is dropping things frequently PAIN EVALUATION 07/16/2022 1448 Pain Level: 8 Pain Location: -- BILATERAL HAND Description: Numbness;Aching Duration Amount of Time: -- SEVERAL YEARS Duration Units: Years Frequency: Continuous Intervention/Comfort measure: Other: See comment;Medication Comments: IBUPROFEN ROS: REVIEW OF SYMPTOMS: Constitutional: patient denies any recent fever or significant change in weight Gastrointestinal: patient denies any current abdominal discomfort Musculoskeletal: as noted in the HPI Neurologic: as noted in the HPI SOCIAL HISTORY: Tobacco Use: Not on file ALLERGIES: ALLERGIES Allergen Reactions Acetaminophen-Caff-* Hives, Other: See Comments Fentanyl Other: See Comments Headache and nausea Hydrochlorothiazide Hives Midazolam Other: See Comments Headache and nausea Morphine Rash PAST MEDICAL HISTORY: No past medical history on file. SOCIAL HISTORY: Tobacco Use: Not on file PHYSICAL EXAMINATION: IMAGING: X-rays of patient's hands previously taken reveal no fractures or dislocations. No significant osseous or articular abnormalities. EMG nerve studies from an outside facility were interpreted by the neurologist doing the procedure as moderate bilateral carpal tunnel syndrome CLINICAL IMPRESSION / ASSESSMENT: Moderate bilateral carpal tunnel syndrome RECOMMENDATION / PLAN: I discussed the treatment options with the patient today at length. My recommendation is a right carpal tunnel release surgery. I explained the risks, benefits, complications, expectations, alternatives to right carpal tunnel release with the patient today at length. We will schedule this for the near future. Verbal health education was given to patient. Patient verbalizes understanding and agrees with the treatment plan as detailed above. Cooper Valle [facility]09-06-2022 History of Present illness Narrative* Cooper Valle, DO - 07/16/2022 2:59 PM EDT Images from the original note were not included. Rupinder Miller is here today at request of KAUSHIK Perdomo specifically for consultation of my opinion in regards to the chief complaint listed below. Correspondence will be shared today via the [employer] electronic health record or through regular mail, where applicable. CHIEF COMPLAINT: Rupinder Miller is a 52 year old female who presents today for new evaluation of bilateral carpal tunnel syndrome. HISTORY OF PRESENT ILLNESS: Ms. Miller is a 52-year-old ygbrx-xbav-behdljhf female presents today for evaluation of bilateral hand pain and numbness. States that the symptoms since she was a teenager. She is tried braces at nighttime which did not help. She has complete numbness in the thumb index middle and ring fingers of both hands. She had major nerve test performed recently which suggested moderate bilateral carpal tunnel syndrome. The symptoms significantly interfere with her daily activities and overall quality of life. She is dropping things frequently PAIN EVALUATION 07/16/2022 1448 Pain Level: 8 Pain Location: -- BILATERAL HAND Description: Numbness;Aching Duration Amount of Time: -- SEVERAL YEARS Duration Units: Years Frequency: Continuous Intervention/Comfort measure: Other: See comment;Medication Comments: IBUPROFEN ROS: REVIEW OF SYMPTOMS: Constitutional: patient denies any recent fever or significant change in weight Gastrointestinal: patient denies any current abdominal discomfort Musculoskeletal: as noted in the HPI Neurologic: as noted in the HPI SOCIAL HISTORY: Tobacco Use: Not on file ALLERGIES: ALLERGIES Allergen Reactions Acetaminophen-Caff-* Hives, Other: See Comments Fentanyl Other: See Comments Headache and nausea Hydrochlorothiazide Hives Midazolam Other: See Comments Headache and nausea Morphine Rash PAST MEDICAL HISTORY: No past medical history on file. SOCIAL HISTORY: Tobacco Use: Not on file PHYSICAL EXAMINATION: IMAGING: X-rays of patient's hands previously taken reveal no fractures or dislocations. No significant osseous or articular abnormalities. EMG nerve studies from an outside facility were interpreted by the neurologist doing the procedure as moderate bilateral carpal tunnel syndrome CLINICAL IMPRESSION / ASSESSMENT: Moderate bilateral carpal tunnel syndrome RECOMMENDATION / PLAN: I discussed the treatment options with the patient today at length. My recommendation is a right carpal tunnel release surgery. I explained the risks, benefits, complications, expectations, alternatives to right carpal tunnel release with the patient today at length. We will schedule this for the near future. Verbal health education was given to patient. Patient verbalizes understanding and agrees with the treatment plan as detailed above. Cooper Valle DO documented in this encounterMercy Health08-12-2022 NoteHNO ID: [id number] Author: Joanie Escoto PA-C Service: ? Author Type: Physician Wrapper Counter Type: Progress Notes Filed: 06/21/2022 3:57 PM Note Text: HAND SURGERY NEW PATIENT / NEW PROBLEM NOTE Patient Name: Rupinder Miller Date of Evaluation: 06/21/2022 HISTORY and CHIEF COMPLAINT: 52 year old year old R hand dominant female house here for bilateral hand pain and numbness. Patient states she has had similar symptoms since she was 20. She states that she has had several EMGs that have said she had carpal tunnel. She states her last one was a few months ago and stated it was severe. I do not have access to those. She states that she has hand weakness and is dropping everything. She states that the numbness is keeping her awake. She has tried braces. She has never had injections but states she is not interested in them. She would like to be referred to a surgeon. The patient is sent for evaluation and an opinion regarding treatment by Amanda Estrella, who will receive a copy of this report by mail or through the shared medical record. PAST MEDICAL HISTORY: HTN, DDD, Anxiety, Bipolar, MEDICATIONS: cholecalciferol, Vitamin D3, (VITAMIN D3) 1,250 mcg (50,000 unit) cap capsule One capsule q.month ALPRAZolam (XANAX) 1 mg tablet Take 1 mg by mouth three times daily as needed. busPIRone HCl 30 mg tablet gabapentin (NEURONTIN) 800 mg tablet NIFEdipine XL (ADALAT CC) 60 mg 24 hr tablet promethazine (PHENERGAN) 25 mg tablet Take 25 mg by mouth. QUEtiapine (SEROQUEL) 100 mg tablet tiZANidine (ZANAFLEX) 4 mg tablet meclizine (ANTIVERT) 25 mg tab Take 25 mg by mouth three times daily as needed. PAST SURGICAL HISTORY: x 3 , tubaligation ALLERGIES: Cgrgvssnwwvkb-Kayi-Jaegjqbfwu, Fentanyl, Hydrochlorothiazide, Midazolam, and Morphine PRIMARY CARE PROVIDER: Adeel Ceja MD PHYSICAL EXAMINATION: Ms. Miller is a 52 year old female. Examination of the upper extremity shows full motion of the shoulders, elbows, wrists, and hands. There is no triggering or tenderness of any of the A1 pulleys. There is no tenderness either basal joint. There is no pain with passive thumb extension or the CMC grind maneuver. There is no flexor or extensor tenosynovitis. There is no warmth, redness, drainage or other sign of infection. APB and first dorsal interosseous strength and bulk are normal. EPL and FPL strength are normal. There are no Tinel's in the upper extremities Carpal tunnel compression test and Phalen's test are negative Extensor tendon function is intact, including EIP, EDC, EDQ, and EPL. IMAGING: Imaging done today showsRings in place limiting the evaluation of the right second and third digits. There is no acute fracture or dislocation. There is a focus of ossification adjacent to the right ulnar styloid process, most likely related to remote injury. There are degenerative changes at the bilateral STT, first CMC, first MCP and first digit IP joints and left distal radioulnar joint. There is no soft tissue swelling. LABORATORY STUDIES: No results for input(s): HB, WBC, PLT, WSR, CRP, CCPABG, RF, INR, CREATININE, ALB, PROT, URICACID, HBA1C, VITD25 in the last 93249 hours. ASSESSMENT: Bilateral hand numbness (primary encounter diagnosis) PLAN: We discussed different surgical and conservative treatment options and reviewed the risks and benefits of surgery. He understands that the risks include, but are not limited to, bleeding, infection, stiffness, neurovascular injury, and a relatively high risk of recurrence. He understands all operations can make her better worse or unchanged and would like to follow a surgical course at [facility] NoteHNO ID: [id number] Author: RT Brian(R) Service: Radiology Author Type: Technologist Type: Progress Notes Filed: 06/21/2022 2:23 PM Note Text: Radiology Service Progress Note PATIENT NAME: Rupinder Miller DATE OF SERVICE: June 21, 2022 TIME: 2:13 PM PATIENT IDENTITY VERIFICATION COMPLETED USING TWO (2) IDENTIFIERS: Name and Date of confirmed by patient verbally. FALL SCREENING: Has the patient had 2 falls in the last year or 1 fall with injury or currently using an Ambulatory Assistive Device (Walker, Cane, Wheelchair, Crutches, etc.)? No PATIENT GENDER DATA: Female. status: : No status: NO. PATIENT RELEVANT IMPLANT DATA REVIEWED: Not Applicable RADIOLOGY DEPARTMENT: General X-ray: Exam(s) Completed: Upper Extremity X-Ray(s): Hand, bilateral PERIPHERAL IV DATA: Not applicable SIGNED BY: RT Brian(R) June 21, 2022 2:13 [facility]08-12-2022 History of Present illness Narrative* Joanie Escoto PA-C - 06/21/2022 2:39 PM EDT Images from the original note were not included. HAND SURGERY NEW PATIENT / NEW PROBLEM NOTE Patient Name: Rupinder Miller Date of Evaluation: 06/21/2022 HISTORY and CHIEF COMPLAINT: 52 year old year old R hand dominant female house here for bilateral hand pain and numbness. Patient states she has had similar symptoms since she was 20. She statesthat she has had several EMGs that have said she had carpal tunnel. She states her last one was a few months ago and stated it was severe. I do not have access to those. She states that she has hand weakness and is dropping everything. She states that the numbness is keeping her awake. She has tried braces. She has never had injections but states she is not interested in them. She would like to be referred to a surgeon. The patient is sent for evaluation and an opinion regarding treatment by Amanda Estrella, who will receive a copy of this report by mail or through the shared medical record. PAST MEDICAL HISTORY: HTN, DDD, Anxiety, Bipolar, MEDICATIONS: cholecalciferol, Vitamin D3, (VITAMIN D3) 1,250 mcg (50,000 unit) cap capsule One capsule q.month ALPRAZolam (XANAX) 1 mg tablet Take 1 mg by mouth three times daily as needed. busPIRone HCl 30 mg tablet gabapentin (NEURONTIN) 800 mg tablet NIFEdipine XL (ADALAT CC) 60 mg 24 hr tablet promethazine (PHENERGAN) 25 mg tablet Take 25 mg by mouth. QUEtiapine (SEROQUEL) 100 mg tablet tiZANidine (ZANAFLEX) 4 mg tablet meclizine (ANTIVERT) 25 mg tab Take 25 mg by mouth three times daily as needed. PAST SURGICAL HISTORY: x 3 , tubaligation ALLERGIES: Pipcnnmkctmth-Hxlz-Pqsarpssuy, Fentanyl, Hydrochlorothiazide, Midazolam, and Morphine PRIMARY CARE PROVIDER: Adeel Ceja MD PHYSICAL EXAMINATION: Ms. Miller is a 52 year old female. Examination of the upper extremity shows full motion of the shoulders, elbows, wrists, and hands. There is no triggering or tenderness of anyof the A1 pulleys. There is no tenderness either basal joint. There is no pain with passive thumb extension or the CMC grind maneuver. There is no flexor or extensor tenosynovitis. There is no warmth, redness, drainage or other sign of infection. APB and first dorsal interosseous strength and bulk are normal. EPL and FPL strength are normal. There are no Tinel's in the upper extremities Carpal tunnel compression test and Phalen's test are negative Extensor tendon function is intact, including EIP, EDC, EDQ, and EPL. IMAGING: Imaging done today showsRings in place limiting the evaluation of the right second and third digits. There is no acute fracture or dislocation. There is a focus of ossification adjacent to the right ulnar styloid process, most likely related to remote injury. There are degenerative changes at the bilateral STT, first CMC, first MCP and first digit IP joints and left distal radioulnar joint. There is no soft tissue swelling. LABORATORY STUDIES: No results for input(s): HB, WBC, PLT, WSR, CRP, CCPABG, RF, INR, CREATININE, ALB, PROT, URICACID, HBA1C, VITD25 in the last 52128 hours. ASSESSMENT: Bilateral hand numbness (primary encounter diagnosis) PLAN: We discussed different surgical and conservative treatment options and reviewed the risks andbenefits of surgery. He understands that the risks include, but are not limited to, bleeding, infection, stiffness, neurovascular injury, and a relatively high risk of recurrence. He understands all operations can make her better worse or unchanged and would like to follow a surgical course at thistime documented in this encounterMercy Health08-12-2022 History of Present illness Narrative* Dwayne Snyder, RT(R) - 06/21/2022 2:00 PM EDT Radiology Service Progress Note PATIENT NAME: Rupinder Miller DATE OF SERVICE: June 21, 2022 TIME: 2:13 PM PATIENT IDENTITY VERIFICATION COMPLETED USING TWO (2) IDENTIFIERS: Name and Date of confirmedby patient verbally. FALL SCREENING: Has the patient had 2 falls in the last year or 1 fall with injury or currently using an Ambulatory Assistive Device (Walker, Cane, Wheelchair, Crutches, etc.)? No PATIENT GENDER DATA: Female. status: : No status: NO. PATIENT RELEVANT IMPLANT DATA REVIEWED: Not Applicable RADIOLOGY DEPARTMENT: General X-ray: Exam(s) Completed: Upper Extremity X- Ray(s): Hand, bilateral PERIPHERAL IV DATA: Not applicable SIGNED BY: RT Brian(R) June 21, 2022 2:13 PM [facility] Narrative - Reported * Patient is being seen for an initial Neurosurgical evaluation. * Back apin ZK-Nkyhmspqmnkf-Uqeam [place] [facility] [employer] [place] Work Phone: Evaluation + Plan note No data available for this section [facility] Diagnosis Bilateral hand numbness- Primary Disturbance of skin sensation documented in this encounter [facility] note* Diagnosis Right carpal tunnel syndrome- Primary Carpal tunnel syndrome Left carpal tunnel syndrome Carpal tunnel syndrome documented in this encounter [facility] note* Diagnosis Carpal tunnel syndrome of right wrist- Primary Carpal tunnel syndrome Carpal tunnel syndrome of right wrist Carpal tunnel syndrome [facility] Diagnosis S/P carpal tunnel release- Primary Other postprocedural status Left carpal tunnel syndrome Carpal tunnel syndrome documented in this encounter [facility] note* Diagnosis Carpal tunnel syndrome of left wrist- Primary Carpal tunnel syndrome Carpal tunnel syndrome of left wrist Carpal tunnel syndrome [facility] Diagnosis Acute pain of left shoulder- Primary [facility] [facility] Diagnosis Left shoulder pain, unspecified chronicity- Primary [facility] Diagnosis Post-operative state- Primary Other postprocedural status S/P carpal tunnel release Other postprocedural status [facility]* Diagnosis Impingement syndrome of left shoulder- Primary Other affections of shoulder region, not elsewhere classified [facility] noteNo assessment information availableP[facility] Work Phone: Evaluation note* Diagnosis Chronic bilateral thoracic back pain- Primary Chronic bilateral low back pain with bilateral sciatica [facility] Diagnosis Pain Generalized pain [facility]* Diagnosis Left shoulder pain, unspecified chronicity documented in this encounter [facility] note* Diagnosis Generalized anxiety disorder (CMS/HCC) Generalized anxiety disorder [facility] Diagnosis Generalized anxiety disorder (CMS/HCC) Generalized anxiety disorder [facility] N[facility]ative - Reported* Type Description Date Medical History bipolar Medical History panic disorder Medical History degenerative disc disease Medical History anxiety Medical History depression Medical History vertigo Medical History HTN Medical History fibromyalgia Surgical History x 3 Surgical History Ceserean sections X 3 Surgical History tubal ligation Surgical History lithotripsy Hospitalization History see above simfy Other History of Present illness Narrative* Ref Provider : Dr. Gilbert, Referring Provider /none * It was a pleasure to see Ms. MILLER at the Neurosurgery Sp[facility] Clinic at [facility]. Ms. MILLER is a really nice 53 year female who presents to use with complaints of LOW BACK PAIN that started about 20 years back. Stabbing pain in the mid back and down and at times in the legs with numbness and tingling. * LEG pain : Yes * Severity 10/10 in severity on a scale of 1 to 10. * Aggravated factors : lifting, standing * Relieving factors: nothing * Bowel Bladder Symptoms: yes * She has tried medications gabapentin, NSAIDS and narcotics , has had PT and has not had ESIs/selective nerve blocks. * She is a SMOKER * History of Depression : YES on treatment * History of DVT/blood clots : NO * The patient is NOT on any STEROID or ASA, Plavix or anticoagulants ( COUMADIN ) * NARCOTICS for pain : YES * PRIOR SPINE SURGERY : NO * Constitutional: No fever or chills * Respiratory: No shortness of breath or wheezing * Musculoskeletal: see HPI above * Neurologic: See HPI above * GENERAL: no apparent distress * EYES: No icterus; extraocular movements intact * NEURO: Neurologically patient is awake alert and oriented X 3 * No obvious cranial nerve deficit. * Strength is 5/5 throughout all motor groups tested. * No pronator drift * Deep tendon reflexes are symmetric throughout. * Gait : WNL * Sensory examination is intact to touch and painful stimuli. * Romberg test positive. * MRI of the cervical and thoracic spine was reviewed personally and shows evidence of mild degenerative changes in the cervical spine along with multiple levels of thoracic disc bulges and herniation but no evidence of any significant spinal cord compression either in the cervical or thoracic spine. She has evidence of small hemangiomas involving the bone but with no evidence of any soft tissue component or spinal cord compression. * PLAN: * Ms. MILLER is a really nice 53-year-old lady whose main complaint remains a stabbing pain in the middle of her back with no known focal neurological deficits. She does have gait imbalance but it seems like she also has M ni re's disease and it could be related to that. Her imaging shows no evidenceof spinal cord compression and I do not recommend any surgical intervention at this point. She was very concerned about the lesions in her spine being cancer but I reassured her that this seems to belike benign hemangiomas and does not require any further intervention or treatment. She was very pleased to know that she does not have any obvious significant malignancy and overall does not need any surgical treatment either. Discussed with him the option of physical therapy and pain management for ongoing symptoms. * It was a pleasure to participate in Ms. MILLER care. * Tim Muñoz MD, [facility], [facility] * Director - Minimally Invasive Spine Surgery * [facility] * Manager Pathology of Neurological Surgery * [facility] [employer] * [place], [place] * Some of this note was completed using [employer]opic[employer] voice recognition technology and sometimes the software misinterprets words. This may include unintended errors with respect to translation of words, typographical errors or grammar errors which may not have been identified prior to finalization of the chart note. Please take this into account when reading this note. MD-Fn[facility]hnqtwom-[facility] Work Phone: Hospital Discharge instructions No data available for this section [facility] No data available for this section [facility] (narrative)* Diagnostic Procedure Only (Routine) - Pending Review Specialty Diagnoses / Procedures Referred By Alex t Referred To Contact XR IMAGING Diagnoses Left shoulder pain, unspecified chronicity Procedures XR SHOULDER GENERAL 3V OR MORE AP/TRUE AP/OTHER LEFT RADEX SHOULDER COMPLETE MINIMUM 2 VIEWS Amanda Echeverria PA-C [address] [place] [address] Xr Imaging Referral ID Status Reason Start Date Expiration Date Visits Requested Visits Authorized [id number] Pending Review Auto-Generat ed Referral 09/18/2022 10/17/2023 1 1 [facility] for referral (narrative)* Diagnostic Procedure Only (Routine) - Closed Specialty Diagnoses / Procedures Referred By Contac t Referred To Contact XR IMAGING Diagnoses Pain Procedures XR HAND GENERAL 3V PA/LAT/OBL BILATERAL RADEX HAND MINIMUM 3 VIEWS Joanie Escoto PA-C [address] [place] [address] [place] [address] Referral ID Status Reason Start Date Expiration Date V isits Requested Visits Authorized [id number] Closed Auto-Generate d Referral 06/14/2022 07/14/2023 1 1 [facility] for referral (narrative)* Diagnostic Procedure Only (Routine) - Closed Specialty Diagnoses / Procedures Referred By Contac t Referred To Contact XR IMAGING Diagnoses Left shoulder pain, unspecified chronicity Procedures XR SHOULDER GENERAL 3V OR MORE AP/TRUE AP/OTHER LEFT RADEX SHOULDER COMPLETE MINIMUM 2 VIEWS Amanda Echeverria PA-C [address] [place] [address] [place] [address] Referral ID Status Reason Start Date Expiration Date V isits Requested Visits Authorized [id number] Closed Auto-Generate d Referral 09/18/2022 10/17/2023 1 1 [facility] for visit Narrative* Diagnostic Procedure Only (Routine) - Closed Specialty Diagnoses / Procedures Referred By Contac t Referred To Contact XR IMAGING Diagnoses Left shoulder pain, unspecified chronicity Procedures XR SHOULDER GENERAL 3V OR MORE AP/TRUE AP/OTHER LEFT RADEX SHOULDER COMPLETE MINIMUM 2 VIEWS Amanda Echeverria PA-C [address] [place] [address] [place] [address] Referral ID Status Reason Start Date Expiration Date V isits Requested Visits Authorized [id number] Closed Auto-Generate d Referral 09/18/2022 10/17/2023 1 1 [facility] Summary Purpose Family History Unknown Family Member Name Dates Details Family history of hypertensi on: Mother, Father(V17.49, Z82.49) Status:Active Family history of cardiac di sorder: Father(V17.49, Z82.49) Status:Active Advance Directives Advance Directive Response Recorded Date/ Time Advance Directives No July 01, 2018 2:42pm Advance Directive Response Recorded Date/ Time Advance Directives No July 01, 2018 3:42pm Reason for Referral Specialty Diagnoses / Procedures Referred By Alex galvan Referred To Contact Orthopedics Diagnoses Acute pain of left shoulder Procedures CONSULT PANEL TO ORTHOPAEDICS OFFICE/OUTPATIENT [facility] 60-74 MINUTES Umm Mercedes MD [address] [id number] Referral ID Status Reason Start Date Expiration Date Visits Requested Visits Authorized [id number] Authorized PCP Requested Referral 09/16/2022 09/16/2023 1 1 Reason 12/10/22 @ 1:30pm Evaluate and Treat Neck Pain Diagnosis 1 Neck pain (M54.2) Referral Organization [facility] Referring Provider First Name Tommy Referring Provider Last Name Ratna Referring Provider Specialty Neurologica l Surgery Referred Organization Unknown Facility Referred Provider Meliton Garcia Referred Provider Specialty ORTHOPEDIC S URGEON Referral Priority Routine Referral Appointment Date 2022-12-10 General Notes Heidi Santos 023 08:50:28 AM >Received today . Referral was fax . They will review referral and call patient Heidi Santos 11/21/2022 09:37:24 AM >Fax letter for appt update Heidi Santos 11/29/2022 09:06:33 AM >Received letter back with appt Heidi Santos 12/12/2022 07:39:01 AM >Received consult notes Specialty Diagnoses / Procedures Referred By Alex galvan Referred To Contact [facility] Diagnoses Chronic bilateral thoracic back pain Chronic bilateral low back pain with bilateral sciatica Procedures CONSULT TO PHYSICAL THERAPY PHYSICAL THERAPY EVALUATION [facility] 45 MINS Ciara Thakur MD [address] [place] [address] [facility] [address] [place] [address] Referral ID Status Reason Start Date Expiration Date Visits Requested Visits Authorized [id number] Pending Review Auto-Generat ed Referral 02/12/2023 02/12/2024 1 1 Chief Complaint and Reason for Visit Chief Complaint m50.90 Chief Complaint BH cervical [id number], thoracic pain M54.6 Additional Source Comments INFORMATION SOURCE (unrecogn ized section and content) DATE CREATED AUTHOR 06/06/2022 [facility] DATE CREATED AUTHOR AUTHOR'S ORGANIZ ATION 09/27/2022 [facility] DATE CREATED AUTHOR AUTHOR'S ORGANIZ ATION 12/18/2022 [facility] DATE CREATED AUTHOR AUTHOR'S ORGANIZ ATION 02/15/2023 [facility] DATE CREATED AUTHOR AUTHOR'S ORGANIZ ATION 03/26/2023 [facility] DATE CREATED AUTHOR AUTHOR'S ORGANIZ ATION 08/14/2023 [facility] DATE CREATED AUTHOR AUTHOR'S ORGANIZ ATION 12/06/2023 [facility] Source Comments (unrecognize d section and content) In the event this informatio n is protected by the Federal Confidentiality of Alcohol and Drug Abuse Patient Records regulations: The Federal rules restrict any use of the information to criminally investigate or prosecute any alcohol or drug abuse patient.[facility] HealthIn the event this information is protected by the Federal Confidentiality of Alcohol and Drug Abuse Patient Records regulations: The Federal rules restrict any use of the information to criminally investigate or prosecute any alcohol or drug abuse patient.[facility] HealthIn the event this information is protected by the Federal Confidentiality of Alcohol and Drug Abuse Patient Records regulations: The Federal rules restrict any use of the information to criminally investigate or prosecute any alcohol or drug abuse patient.[facility] HealthIn the event this information is protected by the Federal Confidentiality of Alcohol and Drug Abuse Patient Records regulations: The Federal rules restrict any use of the information to criminally investigate or prosecute any alcohol or drug abuse patient.[facility] HealthIn the event this information is protected by the Federal Confidentiality of Alcohol and Drug Abuse Patient Records regulations: The Federal rules restrict any use of the information to criminally investigate or prosecute any alcohol or drug abuse patient.[facility] HealthIn the event this information is protected by the Federal Confidentiality of Alcohol and Drug Abuse Patient Records regulations: The Federal rules restrict any use of the information to criminally investigate or prosecute any alcohol or drug abuse patient.[facility] HealthIn the event this information is protected by the Federal Confidentiality of Alcohol and Drug Abuse Patient Records regulations: The Federal rules restrict any use of the information to criminally investigate or prosecute any alcohol or drug abuse patient.[facility] HealthIn the event this information is protected by the Federal Confidentiality of Alcohol and Drug Abuse Patient Records regulations: The Federal rules restrict any use of the information to criminally investigate or prosecute any alcohol or drug abuse patient.[facility] HealthIn the event this information is protected by the Federal Confidentiality of Alcohol and Drug Abuse Patient Records regulations: The Federal rules restrict any use of the information to criminally investigate or prosecute any alcohol or drug abuse patient.[facility] HealthIn the event this information is protected by the Federal Confidentiality of Alcohol and Drug Abuse Patient Records regulations: The Federal rules restrict any use of the information to criminally investigate or prosecute any alcohol or drug abuse patient.[facility] HealthIn the event this information is protected by the Federal Confidentiality of Alcohol and Drug Abuse Patient Records regulations: The Federal rules restrict any use of the information to criminally investigate or prosecute any alcohol or drug abuse patient.[facility] HealthIn the event this information is protected by the Federal Confidentiality of Alcohol and Drug Abuse Patient Records regulations: The Federal rules restrict any use of the information to criminally investigate or prosecute any alcohol or drug abuse patient.[facility] HealthIn the event this information is protected by the Federal Confidentiality of Alcohol and Drug Abuse Patient Records regulations: The Federal rules restrict any use of the information to criminally investigate or prosecute any alcohol or drug abuse patient.[facility] HealthIn the event this information is protected by the Federal Confidentiality of Alcohol and Drug Abuse Patient Records regulations: The Federal rules restrict any use of the information to criminally investigate or prosecute any alcohol or drug abuse patient.[facility] HealthIn the event this information is protected by the Federal Confidentiality of Alcohol and Drug Abuse Patient Records regulations: The Federal rules restrict any use of the information to criminally investigate or prosecute any alcohol or drug abuse patient.[facility] Reason for Visit (unrecogniz ed section and content) Reason Comments New Specialty Diagnoses / Procedures Referred By Contac t Referred To Contact Orthopedics Diagnoses Acute pain of left shoulder Procedures CONSULT PANEL TO ORTHOPAEDICS OFFICE/OUTPATIENT [facility] 60-74 MINUTES Umm Mercedes MD [address] [place] [address] Referral ID Status Reason Start Date Expiration Date V isits Requested Visits Authorized [id number] Closed PCP Requested Referral 09/16/2022 09/16/2023 1 1 Reason Comments Surgical Followup Patient Update Reason Comments Post Op Reason Comments Surgical Followup Reason Comments New Patient Evaluation Pain Reason Comments Results Reason Comments Orders Reason Comments Insurance Authorization thoracic MRI Reason Comments Radio Gen RMP Specialty Diagnoses / Procedures Referred By Contac t Referred To Contact XR IMAGING Diagnoses Pain Procedures XR HAND GENERAL 3V PA/LAT/OBL BILATERAL RADEX HAND MINIMUM 3 VIEWS Joanie Escoto PA-C [address] [place] [address] Xr Imaging [place] [address] Referral ID Status Reason Start Date Expiration Date V isits Requested Visits Authorized [id number] Closed Auto-Generate d Referral 06/14/2022 07/14/2023 1 1 Reason Onset Date Comments Med Refill 12/17/2023 Reason Comments Med Refill Care Teams (unrecognized sec tion and content) Team Status: Active Member Role Status Dates Adeel Ceja MD Primary Care Provider Active Team Status: Active Member Role Status Dates Adeel Ceja MD Primary Care Provider Active Ann Valenzuela MD Attending Provider Active Team Status: Inactive Member Role Status Dates Adeel Ceja MD Primary Care Provider Active NON STAFF Attending Provider Active Project Systems Engineer Relationship Specialty Start Date End Date Adeel Ceja [address] [place] [address] PCP - General Family Practice 04/16/19 Kimber, Melvin S [address] [place] [address] Referring Anesthesiology 04/16/19 Amanda Estrella, PA-C [address] [address] Referring Neurology 06/11/22 Project Systems Engineer Relationship Specialty Start Date End Date Yolandasusy Adeel Cornell [address] [place] [address] PCP - General Family Practice 04/16/19 Kimber Melvin S [address] [address] Referring Anesthesiology 04/16/19 Amanda Estrella PA-C [address] [address] Referring Neurology 06/11/22 Project Systems Engineer Relationship Specialty Start Date End Date Adin Adeel Cornell [address] [place] [address] PCP - General Family Practice 04/16/19 Kimber, Melvin S [address] [address] Referring Anesthesiology 04/16/19 Amanda Estrella PA-C [address] [place] [address] Referring Neurology 06/11/22 Project Systems Engineer Relationship Specialty Start Date End Date Adin Adeel Sarabia [address] [place] [address] PCP - General Family Medicine 04/16/19 Melvin Quiroga S [address] [place] [address] Referring Anesthesiology 04/16/19 Amanda Estrella PA-C [address] [place] [address] Referring Neurology 06/11/22 Project Systems Engineer Relationship Specialty Start Date End Date Adin Adeel Sarabia [address] [place] [address] PCP - General Family Medicine 04/16/19 Ralph Quirogaif S [address] [place] [address] Referring Anesthesiology 04/16/19 Amanda Estrella PA-C [address] [place] [address] Referring Neurology 06/11/22 Project Systems Engineer Relationship Specialty Start Date End Date Brownsascha Adeel Sarabia [address] [place] [address] PCP - General Family Medicine 04/16/19 Ralph Quirogaif S [address] [place] [address] Referring Anesthesiology 04/16/19 Amanda Estrella PA-C [address] [place] [address] Referring Neurology 06/11/22 Project Systems Engineer Relationship Specialty Start Date End Date Adeel Ceja [address] [place] [address] PCP - General Family Medicine 04/16/19 Kimber, Melvin S [address] [place] [address] Referring Anesthesiology 04/16/19 Amanda Estrella PA-C [address] [place] [address] [place] [address] Referring Neurology 06/11/22 Project Systems Engineer Relationship Specialty Start Date End Date Adeel Ceja [address] [place] [address] PCP - General Family Medicine 04/16/19 Kimber, Melvin S [address] [place] [address] Referring Anesthesiology 04/16/19 Amanda Estrella PA-C [address] [place] [address] [place] [address] Referring Neurology 06/11/22 Team Status: Inactive Member Role Status Dates Adeel Ceja MD Primary Care Provider Active Tommy Segundo MD Attending Provider Active Project Systems Engineer Relationship Specialty Start Date End Date Adeel Ceja [address] [place] [address] PCP - General Family Medicine 04/16/19 Kimber, Melvin S [address] [place] [address] Referring Anesthesiology 04/16/19 Amanda Estrella PA-C [address] [place] [address] [place] [address] Referring Neurology 06/11/22 Project Systems Engineer Relationship Specialty Start Date End Date Adeel Ceja [address] [place] [address] PCP - General Family Medicine 04/16/19 Melvin Quiroga [address] [address] Referring Anesthesiology 04/16/19 Amanda Estrella PA-C [address] [place] [address] Referring Neurology 06/11/22 Project Systems Engineer Relationship Specialty Start Date End Date Adeel Ceja [address] [place] [address] PCP - General Family Medicine 04/16/19 Melvin Quiroga [address] [address] Referring Anesthesiology 04/16/19 Amanda Estrella PA-C [address] [place] [address], [place] [address] Referring Neurology 06/11/22 Project Systems Engineer Relationship Specialty Start Date End Date Adeel Ceja [address] [place] [address] PCP - General Family Medicine 04/16/19 Melvin Quiroga [address] [place] [address] Referring Anesthesiology 04/16/19 Amanda Estrella PA-C [address] [place] [address] Referring Neurology 06/11/22 Project Systems Engineer Relationship Specialty Start Date End Date Adeel Ceja MD PCP - General Family Medicine 05/27/23 Project Systems Engineer Relationship Specialty Start Date End Date Adeel Ceja MD PCP - General Family Medicine 05/27/23 Goals (unrecognized section and content) Goals may be documented in a n alternate section No data available for this sectionNo InformationGoals may be documented in an alternate section FOR RECORDS PERTAINING TO PATIENTS WHO ARE OR HAVE BEEN ENROLLED IN A CHEMICAL DEPENDENCY/SUBSTANCEABUSE PROGRAM, SOME INFORMATION MAY BE OMITTED. This clinical summary was aggregated from multiple sources. Caution should be exercised in using it in the provision of clinical care. This summary normalizes information from multiple sources, and as a consequence, information in this document may materially change the coding, format and clinical context of patient data. In addition, data may be omitted in some cases. CLINICAL DECISIONS SHOULD BE BASED ON THE PRIMARY CLINICAL RECORDS. [employer] [facility]. provides no warranty or guarantee of the accuracy or completeness of information in this document.
--- NOTE | 2024-01-14 15:04 | CM.DCFOLLOWU ---
1st attempt discharge follow up call, no answer 01/14/24
--- NOTE | 2024-01-16 14:54 | CM.DCFOLLOWU ---
Person spoke with: patient How are you feeling? still not feeling well How is your pain? very bad Did you understand your discharge instructions? yes Do you have any questions about your discharge instructions? no Were you given any prescriptions at discharge? yes Were you able to get your prescriptions filled? yes Do you understand how to take your medications as ordered? yes Do you have any questions about your follow up appointment and do you plan to keep your follow up appointment? no questions, voiced frustrations about her pain and that nobody is prescribing her Percocet due to her being on xanax as well Is there anything else that you would like to discuss? no Questions/Comments/Concerns/Other: n/a
== END 2024-01-07 15:35 | disposition home or self-care (01) | DRG 347 ==
LOC: ER 01-06 02:54 → MS 01-06 09:06
PROVIDERS: Nurse Practitioner Acute Care; Admitting Provider Family Medicine; Emergency Provider Emergency Medicine; PCP Family Medicine; Visit Provider Family Medicine
DX: M51.25 Other intervertebral disc displacement, thoracolumbar region (principal); R20.2 Paresthesia of skin; I10 Essential (primary) hypertension; F32.A Depression, unspecified; F41.9 Anxiety disorder, unspecified; F17.200 Nicotine dependence, unspecified, uncomplicated; W01.0XXA Fall on same level from slipping, tripping and stumbling without subsequent striking against object, initial encounter; Z65.8 Other specified problems related to psychosocial circumstances; Z88.5 Allergy status to narcotic agent; Z88.8 Allergy status to other drugs, medicaments and biological substances; Z87.442 Personal history of urinary calculi; Z83.3 Family history of diabetes mellitus; Z82.49 Family history of ischemic heart disease and other diseases of the circulatory system; Z79.899 Other long term (current) drug therapy; Z82.3 Family history of stroke
CPT/HCPCS: 36415; 72128; 72131; 72146; 80053; 85025; 96372; 96374; 96375; 96376; 97165; 99285; G0378; J2930

== ENCOUNTER 2024-01-19 15:15 | Emergency (ER) | payer OTHER, SELFPAY ==
[2024-01-19 15:23] VITALS: BP 117/76; PULSE 94; RESP 16; TEMP 36.7; O2SAT 100; BMI 23.5
--- NOTE | 2024-01-19 15:42 | ED_ITS ---
HPI - Back Pain/Injury General Chief Complaint: Back Pain/Injury Stated Complaint: BACK PAIN Time Seen by Provider: 01/19/24 15:25 Source: patient Mode of arrival: walk-in History of Present Illness HPI Narrative: 53 year old female presents to the ED for mid back pain. Onset was 2 weeks ago after tripping over an object. States she has a herniated disc. Reports being admitted to [facility] after the injury. She has been in increased pain. Denies change in bowel and/or bladder control. Denies saddle anesthesia. Denies N/T to her extremities. Denies urinary sx, SOB, fever, chills. States the Motrin, Tylenol, and Zanaflex have not been helping. She is requesting something for pain here in the ED and something for pain for home. States she will not take her Xanax if she is prescribed pain medication. Rates her pain 10/10. F franchesca is driving her home today. MRN: [facility]:[id number] date: 1970 Sex: F Assigned Patient Location: [place] Current Patient Location: [place] Accession/Order Number: [id number] Exam Date: 01/06/2024 06:54 Report Date: 01/06/2024 08:18 At the request of: ELIZA ELISE Procedure: MR thoracic spine wo con EXAMINATION: MR thoracic spine wo con HISTORY: fall, T12-L1 paracentral herniation COMPARISON: No relevant comparison available. TECHNIQUE: Axial T1 and T2; Sagittal T1, T2, and STIR sequences. Images were performed without contrast. FINDINGS: CORD: Normal caliber, contour, and signal intensity. BONES: Normal alignment with no spondylolisthesis. No acute fracture. Anterior wedging of the T5-T7 vertebral bodies likely physiologic or remote in nature DISCS: Multilevel disc desiccation and narrowing. Mild posterior central disc bulging T2-T3 and T5-T6 T6-7 T7-T8, T8-T9 T10-T11. Left paracentral and lateral disc herniation of the fusion type at T12-L1 measuring 8 mm at the base extending posteriorly up to 6 mm, deforming the ventral spinal cord PARASPINAL AREA: No visible mass. OTHER: Negative. No abnormal contrast enhancement. MR/MR thoracic spine wo con IMPRESSION: Left paracentral/lateral disc herniation of the protrusion type at T12-L1 deforming the ventral spinal cord Electronically authenticated by: MACKENZIE CROOKS Date: 01/06/2024 08:18 Related Data Home Medications Medication Instructions Recorded Confirmed alprazolam 1 mg tablet 1 mg PO TID PRN anxiety 01/05/24 01/05/24 amitriptyline 50 mg tablet 50 mg PO QPM 01/05/24 01/05/24 gabapentin 800 mg tablet 800 mg PO TID 01/05/24 01/05/24 ibuprofen 800 mg tablet 800 mg PO TID PRN pain 01/05/24 01/05/24 nifedipine 60 mg tablet,extended 60 mg PO DAILY 01/05/24 01/05/24 release tizanidine 4 mg tablet 4 mg PO TID PRN muscle spasticity 01/05/24 01/05/24 buspirone 30 mg tablet 15 mg PO DAILY 01/06/24 01/06/24 multivitamin (Daily Multi-Vitamin 1 tab PO DAILY 01/06/24 01/06/24 tablet) Previous Rx's Medication Instructions Recorded prednisone 20 mg tablet 20 mg PO DAILY 5 days #5 tabs 01/07/24 hydrocodone 5 mg-acetaminophen 325 1 tab PO Q8H PRN pain 4 days #12 01/19/24 mg tablet tabs Allergies Allergy/AdvReac Type Severity Reaction Status Date / Time furosemide [From Lasix] Allergy Severe Verified 01/07/24 12:25 morphine Allergy Severe Verified 06/19/23 15:18 spironolactone Allergy Severe Verified 06/19/23 15:21 Review of Systems ROS Constitutional Denies: fever or chills Ears, nose, mouth, and throat Denies: neck pain Cardiovascular Denies: chest pain Respiratory Denies: shortness of breath Gastrointestinal Denies: abdominal pain, nausea, vomiting or diarrhea Genitourinary Denies: painful urination, urinary incontinence, blood in urine, difficulty voiding or decreased urine ouput Musculoskeletal Reports: back pain; Denies: neck pain, extremity pain or extremity swelling Integumentary/Breast Denies: rash Neurological Denies: numbness in extremities, weakness in extremities, lack of coordination or dizziness [facility] Medical History (Updated 01/19/24 @ 16:07 by Bindu Fajardo) TMJ (temporomandibular joint disorder) ?M26.609 - Unspecified temporomandibular joint disorder, unspecified side (ICD-10) Kidney stones ?N20.0 - Calculus of kidney (ICD-10) Balance disorder ?R26.89 - Other abnormalities of gait and mobility (ICD-10) Neck pain ?M54.2 - Cervicalgia (ICD-10) TMJ arthritis ?M26.649 - Arthritis of unspecified temporomandibular joint (ICD-10) Degenerative disc disease Depression ?F32.A - Depression, unspecified (ICD-10) Anxiety ?F41.9 - Anxiety disorder, unspecified (ICD-10) High blood pressure ?I10 - Essential (primary) hypertension (ICD-10) Spiritual problem ?Z65.8 - Other specified problems related to psychosocial circumstances (ICD- 10) Meniere disease ?H81.09 - Meniere's disease, unspecified ear (ICD-10) Surgical History (Updated 01/06/24 @ 04:32 by Umm Enciso) delivery delivered ?O82 - Encounter for delivery without indication (ICD-10) History of carpal tunnel surgery ?Z98.890 - Other specified postprocedural states (ICD-10) Family History (Updated 01/06/24 @ 03:58 by Umm Enciso) Father Family history of diabetes mellitus Family history of hypertension Family history of myocardial infarction Sister Family history of diabetes mellitus Family history of hypertension Aunt Family history of diabetes mellitus Family history of hypertension Family history of stroke Mother Family history of diabetes mellitus Family history of hypertension Social History (Updated 01/06/24 @ 03:59 by Umm Enciso) Within the past year, how often did you have a drink containing alcohol: never Score interpretation: A score less than 3 is consistent with normal alcohol consumption. 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, disability Highest level of school completed/degree received: some college, no degree Are you now , , , , never or living with a partner: In a typical week, how many times do you talk on the telephone with family, friends, or neighbors: 3 or more times per week How often do you get together with friends or relatives: 3 or more times per week How often do you attend denominational or yazidism services: never Little interest or pleasure in doing things: not at all Feeling down, depressed, or hopeless: not at all Feel stressed/tense/nervous/anxious/difficulty sleeping: not at all Life stressors: divorce/separation Do you think of yourself as: straight/heterosexual Gender Identity: female Exam Constitutional Vital Signs, click to edit/add: Last Vital Signs Temp 98.1 F 01/19/24 15:23 Pulse 94 H 01/19/24 15:23 Resp 16 01/19/24 15:23 BP 117/76 01/19/24 15:23 Pulse Ox 100 01/19/24 15:23 O2 Del Method Room Air 01/19/24 15:23 Common normals: oriented x3 General appearance: cooperative Eye Common normals: conjunctivae normal and no scleral icterus Neck & C-Spine Common normals: supple Chest Chest: symmetrical chest wall rise Cardio Common normals: regular rhythm Back & Pelvis Thoracic spine/upper back: normal to inspection, thoracic spinal tenderness and paraspinal muscle tenderness Lumbar spine/lower back: normal to inspection; no lumbar spinal tenderness and no paraspinal muscle tenderness Neuro Common normals: oriented x3 Sensorium/orientation: awake and alert Speech: speech normal Gait (neuro): other (Gait slow, steady.) Sensory exam: extremities (Moves extremities.) Course Vital Signs Vital signs: Vital Signs Temperature 98.1 F 01/19/24 15:23 Pulse Rate 94 H 01/19/24 15:23 Respiratory Rate 16 01/19/24 15:23 Blood Pressure 117/76 01/19/24 15:23 Pulse Oximetry 100 01/19/24 15:23 Oxygen Delivery Method Room Air 01/19/24 15:23 Temperature 98.1 F 01/19/24 15:23 Pulse Rate 94 H 01/19/24 15:23 Respiratory Rate 16 01/19/24 15:23 Blood Pressure 117/76 01/19/24 15:23 Pulse Oximetry 100 01/19/24 15:23 Oxygen Delivery Method Room Air 01/19/24 15:23 MDM - Back Pain/Injury MDM Narrative Medical decision making narrative: The patient was medicated for her discomfort here. OARRS was reviewed. A prescription was provided for norco. Follow up with pcp and an orthopedist fo a recheck, further evaluation and treatment. She is established with a specialist. Medical Records Attestation: I reviewed the patient's medical records. Discharge Plan Discharge Stand Alone Forms: Portal Instructions Chief Complaint: Back Pain/Injury Clinical Impression: Back pain Patient Disposition: Home, Self-Care Time of Disposition Decision: 16:07 Condition: Good Mode of Transportation: Private Vehicle Prescriptions / Home Meds: New hydrocodone-acetaminophen 5-325 mg tablet 1 tab PO Q8H PRN (Reason: pain) 4 Days Qty: 12 0RF No Action alprazolam 1 mg tablet 1 mg PO TID PRN (Reason: anxiety) amitriptyline 50 mg tablet 50 mg PO QPM gabapentin 800 mg tablet 800 mg PO TID ibuprofen 800 mg tablet 800 mg PO TID PRN (Reason: pain) nifedipine 60 mg tablet extended release 60 mg PO DAILY tizanidine 4 mg tablet 4 mg PO TID PRN (Reason: muscle spasticity) buspirone 30 mg tablet 15 mg PO DAILY multivitamin [Daily Multi-Vitamin] Tablet 1 tab PO DAILY prednisone 20 mg tablet 20 mg PO DAILY 5 Days Qty: 5 0RF Instructions: Back Pain (ED) Referrals: Adeel Oakley MD [Primary Care Provider] - 1 week Discharge Date/Time: 01/19/24 16:36
[2024-01-19] MEDS: HYDROMORPHONE HCL 0.5 MG/0.5 ML SYRINGE IM (16:01)
[2024-01-19] MEDS: DEXAMETHASONE 4 MG TABLET 8 MG PO (16:01)
[2024-01-19] MEDS: KETOROLAC TROMETHAMINE 30 MG/ML VIAL IM (16:02)
== END 2024-01-19 16:36 | disposition home or self-care (01) ==
PROVIDERS: Emergency Provider Emergency Medicine; PCP Family Medicine
DX: M54.9 Dorsalgia, unspecified (principal); Z79.899 Other long term (current) drug therapy; Z87.442 Personal history of urinary calculi; F32.A Depression, unspecified; F41.9 Anxiety disorder, unspecified; I10 Essential (primary) hypertension; Z98.890 Other specified postprocedural states; F17.210 Nicotine dependence, cigarettes, uncomplicated
CPT/HCPCS: 96372; 99284; J1170

== ENCOUNTER 2024-07-02 19:33 | Emergency (ER) | payer OTHER, SELFPAY ==
[2024-07-02 19:38] VITALS: BP 125/85; PULSE 103; TEMP 36.8; O2SAT 100; BMI 21.6
--- NOTE | 2024-07-02 20:03 | ED_ITS ---
HPI HPI - General Adult General Chief complaint: Back Pain/Injury Stated complaint: BACK PAIN Time Seen by Provider: 07/02/24 19:42 Source: patient Mode of arrival: walk-in Limitations: no limitations History of Present Illness HPI narrative: 54-year-old female to the emergency department chief complaint of back pain. Patient reports that she has a history of chronic thoracic back pain. She has been doing very well recently. Unfortunately today she could not get any help mowing the lawn despite multiple attempts at she had to do it herself. She reports that immediately after starting she began to have some pain in her back. No numbness, weakness, tingling, saddle anesthesia or bowel bladder incontinence. Typical of exacerbation of chronic back pain for her. She reports that usually she is given some pain medication and some steroids and she feels better in a few days. She does follow-up with neurosurgery for this. Related Data Home Medications ?Medication ?Instructions ?Recorded ?Confirmed alprazolam 1 mg tablet 1 mg PO TID PRN anxiety 01/05/24 01/05/24 amitriptyline 50 mg tablet 50 mg PO QPM 01/05/24 01/05/24 gabapentin 800 mg tablet 800 mg PO TID 01/05/24 01/05/24 ibuprofen 800 mg tablet 800 mg PO TID PRN pain 01/05/24 01/05/24 nifedipine 60 mg tablet,extended 60 mg PO DAILY 01/05/24 01/05/24 release tizanidine 4 mg tablet 4 mg PO TID PRN muscle spasticity 01/05/24 01/05/24 buspirone 30 mg tablet 15 mg PO DAILY 01/06/24 01/06/24 multivitamin (Daily Multi-Vitamin 1 tab PO DAILY 01/06/24 01/06/24 tablet) Previous Rx's ?Medication ?Instructions ?Recorded prednisone 20 mg tablet 20 mg PO DAILY 5 days #5 tabs 01/07/24 hydrocodone 5 mg-acetaminophen 325 1 tab PO Q8H PRN pain 4 days #12 01/19/24 mg tablet tabs lidocaine 5 % topical patch See Rx Instructions topical 07/02/24 (Lidoderm) .COMPLEX #7 ea naproxen 500 mg tablet 500 mg PO BID PRN pain #14 tabs 07/02/24 oxycodone-acetaminophen 5 mg-325 1 tab PO Q6H PRN pain 3 days #12 07/02/24 mg tablet (Percocet) tabs Allergies Allergy/AdvReac Type Severity Reaction Status Date / Time furosemide [From Lasix] Allergy Severe Verified 01/07/24 12:25 morphine Allergy Severe Verified 06/19/23 15:18 spironolactone Allergy Severe Verified 06/19/23 15:21 Opioid HPI Opioid Management Most Recent Opioid Data: Last Pain Scale 8 07/02/24 19:50 Last ED Pain Assessment 07/02/24 19:50 Review of Systems ROS Status of ROS 10 or more systems reviewed and unremark able except as noted in history and below [facility] Medical History (Updated 07/02/24 @ 19:57 by Charles Moss MD) TMJ (temporomandibular joint disorder) ?M26.609 - Unspecified temporomandibular joint disorder, unspecified side (ICD-10) Kidney stones ?N20.0 - Calculus of kidney (ICD-10) Balance disorder ?R26.89 - Other abnormalities of gait and mobility (ICD-10) Neck pain ?M54.2 - Cervicalgia (ICD-10) TMJ arthritis ?M26.649 - Arthritis of unspecified temporomandibular joint (ICD-10) Degenerative disc disease Depression ?F32.A - Depression, unspecified (ICD-10) Anxiety ?F41.9 - Anxiety disorder, unspecified (ICD-10) High blood pressure ?I10 - Essential (primary) hypertension (ICD-10) Spiritual problem ?Z65.8 - Other specified problems related to psychosocial circumstances (ICD- 10) Meniere disease ?H81.09 - Meniere's disease, unspecified ear (ICD-10) Surgical History (Updated 01/06/24 @ 04:32 by Umm Enciso) delivery delivered ?O82 - Encounter for delivery without indication (ICD-10) History of carpal tunnel surgery ?Z98.890 - Other specified postprocedural states (ICD-10) Family History (Updated 01/06/24 @ 03:58 by Umm Enciso) Father Family history of diabetes mellitus Family history of hypertension Family history of myocardial infarction Sister Family history of diabetes mellitus Family history of hypertension Aunt Family history of diabetes mellitus Family history of hypertension Family history of stroke Mother Family history of diabetes mellitus Family history of hypertension Social History (Updated 01/06/24 @ 03:59 by Umm Enciso) Within the past year, how often did you have a drink containing alcohol: never Score interpretation: A score less than 3 is consistent with normal alcohol consumption. 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, disability Highest level of school completed/degree received: some college, no degree Are you now , , , , never or living with a partner: In a typical week, how many times do you talk on the telephone with family, friends, or neighbors: 3 or more times per week How often do you get together with friends or relatives: 3 or more times per week How often do you attend yarsanism or episcopalian services: never Little interest or pleasure in doing things: not at all Feeling down, depressed, or hopeless: not at all Feel stressed/tense/nervous/anxious/difficulty sleeping: not at all Life stressors: divorce/separation Do you think of yourself as: straight/heterosexual Gender Identity: female Exam Narrative Exam Narrative: VITALS: I have reviewed the triage vital signs. GENERAL: Well developed, well appearing adult in no acute distress. NEURO: Alert and oriented. Moves all extremities. Face is symmetric and expressive. Patellar reflexes brisk and equal bilaterally. Normal gait. Plantar flexion/dorsiflexion, knee flexion/extension, hip flexion/extension are grossly intact with 5/5 strength. Sensation is intact across the bilateral lower extremities. SPINE: No midline cervical, thoracic, or lumbar tenderness. No step-off or deformities. Right-sided thoracic paraspinal muscle tenderness and increased tone. EYES: PERRL. No scleral icterus or conjunctival injection. No discharge. HENT: Normocephalic, atraumatic. Hearing is grossly intact. Nares grossly patent and without discharge. Mucous membranes moist. NECK: No JVD. Patient moves neck without restriction. CARDIO: Rhythm regular. Normal rate. No murmur, rub, or gallop. Pulses equal bilaterally in the upper and lower extremity. No lower extremity edema. PULM: Lungs clear to auscultation in all berry. No wheezes, rales, or rhonchi. No conversational dyspnea. No splinting, stridor, or accessory muscle use. GI/: Abdomen is soft and non-tender. Normoactive bowel sounds. No flank tenderness. EXTREMITIES: Symmetric muscle bulk. No joint swelling. No clubbing, cyanosis, or deformity. SKIN: Warm and dry. Normal turgor. No rash or lesions appreciated. PSYCH: Mood, affect, and interaction is appropriate to the setting. Constitutional Vital Signs, click to edit/add: Last Vital Signs Temp 98.2 F 07/02/24 19:38 Pulse 103 H 07/02/24 19:38 Resp 16 07/02/24 19:38 BP 125/85 07/02/24 19:38 Pulse Ox 100 07/02/24 19:38 O2 Del Method Room Air 07/02/24 19:38 Course Vital Signs Vital signs: Vital Signs Temperature 98.2 F 07/02/24 19:38 Pulse Rate 103 H 07/02/24 19:38 Respiratory Rate 16 07/02/24 19:38 Blood Pressure 125/85 07/02/24 19:38 Pulse Oximetry 100 07/02/24 19:38 Oxygen Delivery Method Room Air 07/02/24 19:38 Temperature 98.2 F 07/02/24 19:38 Pulse Rate 103 H 07/02/24 19:38 Respiratory Rate 16 07/02/24 19:38 Blood Pressure 125/85 07/02/24 19:38 Pulse Oximetry 100 07/02/24 19:38 Oxygen Delivery Method Room Air 07/02/24 19:38 Medical Decision Making MDM Narrative Medical decision making narrative: Well-appearing 54-year-old female to the emergency department chief complaint of exacerbation of her chronic thoracic back pain. Vital stable, the patient is afebrile. Neurologic examination is nonfocal. History and exam do not suggest any cord compressing lesion. No indication for imaging at this time. Plan for symptomatic therapy. Patient agrees with this plan. She reports her son is driving her home. Kenalog, Toradol, Percocet are given in the ER. A prescription for naproxen, Percocet, Lidoderm patches are given. Narcotic and sedation warning given. Return precautions were discussed. All questions were answered. Patient was pleased with this plan. Patient was discharged home. Medical Records Medical records reviewed: Yes I reviewed the patient's medical records Discharge Plan Discharge Stand Alone Forms: Work/School Release, Portal Instructions Chief Complaint: Back Pain/Injury Clinical Impression: Back pain Patient Disposition: Home, Self-Care Time of Disposition Decision: 19:57 Condition: Good Mode of Transportation: Private Vehicle Prescriptions / Home Meds: New oxycodone-acetaminophen [Percocet] 5-325 mg tablet 1 tab PO Q6H PRN (Reason: pain) 3 Days Qty: 12 0RF lidocaine [Lidoderm] 5 % adhesive patch,medicated See Rx Instructions .ROUTE .COMPLEX Qty: 7 0RF Rx Instructions: leave on most painful area for up to 12 hrs naproxen 500 mg tablet 500 mg PO BID PRN (Reason: pain) Qty: 14 0RF No Action alprazolam 1 mg tablet 1 mg PO TID PRN (Reason: anxiety) amitriptyline 50 mg tablet 50 mg PO QPM gabapentin 800 mg tablet 800 mg PO TID ibuprofen 800 mg tablet 800 mg PO TID PRN (Reason: pain) nifedipine 60 mg tablet extended release 60 mg PO DAILY tizanidine 4 mg tablet 4 mg PO TID PRN (Reason: muscle spasticity) buspirone 30 mg tablet 15 mg PO DAILY multivitamin [Daily Multi-Vitamin] Tablet 1 tab PO DAILY prednisone 20 mg tablet 20 mg PO DAILY 5 Days Qty: 5 0RF hydrocodone-acetaminophen 5-325 mg tablet 1 tab PO Q8H PRN (Reason: pain) 4 Days Qty: 12 0RF Print Language: Montenegrin Instructions: Oxycodone/Acetaminophen (By mouth), Back Pain (ED), Safe Use of NSAIDs (ED) Additional Instructions: Call the office of your primary care doctor to arrange for follow-up within the above-stated timeframe. Your ED visit was focused on your acute issue and does not replace primary care. You should review your labs, imaging, and diagnoses from this ED visit with your primary care physician. There may be non-emergent/ incidental findings that need further evaluation. You should review your vital signs including blood pressure with your PCP. If you were prescribed medications you should discuss possible side-effects and drug interactions with your pharmacist. Call 911 or go to the nearest Emergency Department if you develop any new or worsening symptoms. Seek immediate medical attention if you develop: increasing pain, numbness, tingling, weakness, loss of motion in your arms or legs, loss of control of your urine or stool, fever, abdominal pain, chest pain, shortness of breath, or any new or worsening symptoms. Do not take Percocet with other sedating medications or alcohol. Referrals: Adeel Oakley MD [Primary Care Provider] - 1 week
[2024-07-02] MEDS: TRIAMCINOLONE ACETONIDE 40 MG/ML VIAL IM (20:16)
[2024-07-02] MEDS: KETOROLAC TROMETHAMINE 30 MG/ML VIAL IM (20:17)
[2024-07-02] MEDS: OXYCODONE HCL/ACETAMINOPHEN 5MG/325MG 1 TAB PO (20:18)
== END 2024-07-02 20:35 | disposition home or self-care (01) ==
PROVIDERS: Emergency Provider Student in an Organized Health Care Education/Training Program; PCP Family Medicine
DX: M54.9 Dorsalgia, unspecified (principal); F17.210 Nicotine dependence, cigarettes, uncomplicated
CPT/HCPCS: 96372; 99284; J1885; J3301

== ENCOUNTER 2024-07-08 14:42 | Outpatient (OUT) | payer OTHER, SELFPAY ==
[2024-07-08 15:10] LABS: Basophils Percent Auto 0.5 % (0.2-2.0); Eosinophils Absolute Auto 0.3 10^3/uL (0.0-0.7); Eosinophils Percent Auto 4.9 % (0.9-7.0); Hemoglobin 13.7 g/dL (12.0-16.0); Immature Granulocytes Abs Auto 0.01 10^3/uL (0.00-0.03); Immature Granulocytes Pct Auto 0.2 % (0.0-0.5); Lymphocytes Absolute Auto 2.2 10^3/uL (1.2-3.8); Lymphocytes Percent Auto 33.3 % (20.5-60.0); Mean Corpuscular HGB Conc 33.4 g/dL (29.9-35.2); Mean Corpuscular Hemoglobin 31.6 pg (26.7-34.0); Mean Corpuscular Volume 94.5 fL (81.0-99.0); Mean Platelet Volume 8.6 fL (9.5-13.5); Monocytes Absolute Auto 0.5 10^3/uL (0.3-0.8); Neutrophils Absolute Auto 3.5 10^3/uL (1.4-6.5); Neutrophils Percent Auto 54.1 % (43.0-75.0); Platelet Count 327 10^3/uL (150-450); Red Blood Count 4.34 10^6/uL (4.20-5.40); Red Cell Distribution Width 12.5 % (11.0-15.0); White Blood Count 6.5 10^3/uL (4.0-11.0)
[2024-07-08 15:30] LABS: Estimated Average Glucose 97 mg/dL
[2024-07-08 15:40] LABS: Alanine Aminotransferase 26 U/L (14-59); Albumin Globulin Ratio 1.3; Albumin Level 4.2 g/dL (3.4-5.0); Alkaline Phosphatase 105 U/L (46-116); Anion Gap 9.8; Aspartate Amino Transferase 27 U/L (15-37); BUN Creatinine Ratio 11.4; Bilirubin Direct 0.1 mg/dL (0.0-0.2); Bilirubin Total 0.3 mg/dL (0.2-1.0); Calcium 9.5 mg/dL (8.5-10.1); Carbon Dioxide 31.7 mmol/L (21.0-32.0); Chloride 106 mmol/L (98-107); Cholesterol 207 mg/dL (<=200); Estimated GFR (African America >60 (>=60); Estimated GFR (Non-African Ame >60 (>=60); Globulin 3.3 g/dL; Glucose 98 mg/dL (74-106); HDL Cholesterol 68 mg/dL (40-60); Potassium 3.5 mmol/L (3.5-5.1); Sodium 144 mmol/L (136-145); Thyroid Stimulating Hormone 1.258 uIU/mL (0.358-3.740); Total Protein 7.5 g/dL (6.4-8.2); Triglycerides 141 mg/dL (<=150); VLDL CHOLESTEROL 28.2 mg/dL
== END 2024-07-08 14:43 | disposition home or self-care (01) ==
PROVIDERS: PCP Family Medicine; Visit Provider Family Medicine
DX: Z00.00 Encounter for general adult medical examination without abnormal findings (principal)
CPT/HCPCS: 36415; 80048; 80061; 80076; 83036; 84443; 85025

== ENCOUNTER 2024-07-16 13:01 | Outpatient (OUT) | payer OTHER, SELFPAY ==
--- NOTE | 2024-07-16 13:04 | MM_ITS ---
Patient Name: ALISTAIR MILLER MR#: [id number] : 1970 Exam Date: 07/16/2024 Ordering Doctor: DR Adeel Oakley . RADIOLOGY REPORT PROCEDURE: MM TOMOSYNTHESIS SCREENING BI COMPARISON: MG MAMM SCREEN 3D LAN CAD, 09/20/2021. MG MAMM SCREEN 3D LAN CAD, 11/07/2022. INDICATIONS: Screening Calculator Name NCI Breast Cancer Risk Assessment Tool 5 Year Breast Cancer Risk 0.80% Lifetime Breast Cancer Risk 6.90% Personal Breast Cancer No Personal Ovarian Cancer No Treatments None Family Cancers Sister with thyroid cancer at age 46. LOCATION: [facility] BREAST COMPOSITION: The breasts are heterogeneously dense,which may obscure small masses. FINDINGS: DIAGNOSTIC CATEGORY 1--NEGATIVE. NO CHANGE FROM COMPARISON ASSESSMENT. RIGHT BREAST: No significant suspicious finding. LEFT BREAST: No significant suspicious finding. RECOMMENDATIONS: ROUTINE MAMMOGRAM AND CLINICAL EVALUATION IN 12 MONTHS. PLEASE NOTE: A NORMAL MAMMOGRAM DOES NOT EXCLUDE THE POSSIBILITY OF BREAST CANCER. A CLINICALLY SUSPICIOUS PALPABLE LUMP SHOULD BE BIOPSIED. Dictated by: Indio Ritchie MD on 07/19/2024 at 09:17 Approved by: Indio Ritchie MD on 07/19/2024 at 09:18
== END 2024-07-16 13:02 | disposition home or self-care (01) ==
LOC: MAMMO 13:01
PROVIDERS: PCP Family Medicine; Visit Provider Family Medicine
DX: Z12.31 Encounter for screening mammogram for malignant neoplasm of breast (principal); Z80.8 Family history of malignant neoplasm of other organs or systems
CPT/HCPCS: 77063; 77067